=== PATIENT | male | born 1970 | race Caucasian/White ===

== ENCOUNTER → 2019-06-02 | Outpatient (CLI) | payer BC ==
--- NOTE | 2019-06-02 10:42 | Diagnostic Imaging Report ---
INDICATION: Increasing right hip pain. Time of exam: 10:04 AM Two views of the right hip were obtained. Femoral acetabular alignment is normal. Joint spaces fairly well maintained. Femoral head and neck are intact. No fractures are seen. Right-sided rami are intact. IMPRESSION: No acute bony abnormality is detected. Dictated by: Dictated on workstation # [id number]
== END ==
LOC: RAD 09:49
PROVIDERS: ATTEND Family Medicine
DX: M25.551 Pain in right hip (principal)
CPT/HCPCS: 73502

== ENCOUNTER 2019-11-30 02:12 | Observation (INO) | payer BC ==
[~2019-11-30] VITALS: Ht 187.9 cm; Wt 150.6 kg
[2019-11-30] VITALS (22 sets, daily range): BP systolic 118–149; BP diastolic 67–80
[2019-11-30 02:40] LABS: BASOPHILS # (AUTO) 0.1 10^3/uL (0.0-0.1); BASOPHILS % (AUTO) 1 % (0-10); EOSINOPHILS # (AUTO) 0.5 10^3/uL (0.0-0.3); EOSINOPHILS % (AUTO) 6 % (0-10); HEMATOCRIT 41 % (40-54); HEMOGLOBIN 14.5 G/DL (13.3-17.7); LYMPHOCYTES # (AUTO) 3.6 X 10^3 (1.0-4.0); LYMPHOCYTES % (AUTO) 42 % (12-44); MEAN CORPUSCULAR HEMOGLOBIN 32 PG (25-34); MEAN CORPUSCULAR HGB CONC 35 G/DL (32-36); MEAN CORPUSCULAR VOLUME 92 FL (80-99); MEAN PLATELET VOLUME 10.2 FL (7.4-10.4); MONOCYTES # (AUTO) 0.8 X 10^3 (0.0-1.0); MONOCYTES % (AUTO) 9 % (0-12); NEUTROPHILS # (AUTO) 3.7 X 10^3 (1.8-7.8); NEUTROPHILS % (AUTO) 43 % (42-75); PLATELET COUNT 219 10^3/uL (130-400); RED CELL DISTRIBUTION WIDTH 13.3 % (10.0-14.5); WHITE BLOOD COUNT 8.6 10^3/uL (4.3-11.0)
--- NOTE | 2019-11-30 02:40 | ED Neurological Problem ---
General Stated Complaint: STROKE LIKE SYMTOMS Source: patient, EMS History of Present Illness Date Seen by Provider: Nov 30, 2019 Time Seen by Provider: 02:15 Initial Comments PT ARRIVES VIA EMS FROM HOME C/O RIGHT FACIAL DROOP AND SLURRED SPEECH LAST KNOWN WELL TIME WAS AT 2230 WHEN HE WENT TO BED WOKE UP AT 0130 TO GO TO BATHROOM AND HAD SLURRED SPEECH AND RIGHT FACIAL DROOP NO PARESTHESIAS TO FACE NO INVOLVEMENT OF ARMS OR LEGS EMS REPORTS THAT PT WAS ABLE TO STAND, WALK A FEW STEPS AND TRANSFER WITHOUT DIFFICULTY NO VISION CHANGES, BUT PT DOES NOT HAVE ON HIS GLASSES NO PROBLEMS HANDLING SECRETIONS NO HEADACHE NO DIZZINESS OR SYNCOPE NO PALPITATIONS NO CHEST PAIN OR SHORTNESS OF BREATH NO NAUSEA/VOMITING PT IS INSULIN DEPENDENT DIABETIC ACCUCHECK 112 BY EMS. NO HISTORY OF STROKE PCP: DR. ALBERTO Allergies and Home Medications Allergies Coded Allergies: No Allergy Information Available (Unverified , 11/30/19) Patient Home Medication List Home Medication List Reviewed: Yes Review of Systems Review of Systems Constitutional: no symptoms reported Eyes: No Symptoms Reported Ears, Nose, Mouth, Throat: see HPI Respiratory: no symptoms reported Cardiovascular: no symptoms reported Gastrointestinal: no symptoms reported Genitourinary: no symptoms reported Musculoskeletal: no symptoms reported Skin: no symptoms reported Psychiatric/Neurological: See HPI; Denies Cognitive Dysfunction, Denies Headache, Denies Numbness, Denies Tingling Endocrine: No Symptoms Reported Hematologic/Lymphatic: No Symptoms Reported Past Efsjzkj-Xlqrij-Aiighb Hx Past Med/Social Hx: Reviewed and Corrections made Patient Social History Alcohol Use: Denies Use Recreational Drug Use: No Smoking Status: Never a Smoker Recent Foreign Travel: No Contact w/Someone Who Travel: No Past Medical History Surgeries: Yes (BILATERAL SHOULDER SURGERY; LEFT WRIST SURGERY-"CLEANED OUT CARTILAGE" ) Appendectomy, Orthopedic Respiratory: No Cardiac: Yes High Cholesterol, Hypertension Neurological: No Genitourinary: No Gastrointestinal: No Musculoskeletal: Yes (BILATERAL SHOULDER SURGERY; RIGHT WRIST SURGERY-"CLEAN OUT CARTILAGE" ) Endocrine: Yes Diabetes, Insulin dep HEENT: Yes (GLASSES) Cancer: No Psychosocial: No Integumentary: No Blood Disorders: No Physical Exam Vital Signs Capillary Refill : Height, Weight, BMI Height: '" Weight: lbs. oz. kg; BMI Method: General Appearance: WD/WN, no apparent distress, obese HEENT: PERRL/EOMI, normal ENT inspection, TMs normal, pharynx normal, other (TONGUE MIDLINE; RIGHT FACIAL DROOP, INCLUDING FOREHEAD. ABLE TO COMPLETELY SHUT RIGHT EYE) Neck: non-tender, full range of motion, supple, normal inspection; No carotid bruit Respiratory: normal breath sounds, no respiratory distress, no accessory muscle use Cardiovascular: normal peripheral pulses, regular rate, rhythm, no edema, no JVD, no murmur Peripheral Pulses: 2+ Dorsalis Pedis (R), 2+ Left Dors-Pedis (L), 2+ Radial Pulses (R), 2+ Radial Pulses (L) Gastrointestinal: normal bowel sounds, non tender, soft Back: normal inspection Extremities: normal range of motion, non-tender, normal inspection, no pedal edema, no calf tenderness, normal capillary refill Neurologic/Psychiatric: alert, normal mood/affect, oriented x 3, facial droop (RIGHT ) Crainal Nerves: normal hearing, PERRL; No abnormal eye position, No abnormal pupil position; abnormal speech, facial asymmetry, facial droop; No facial paresthesias, No gaze palsy, No hearing deficit (R), No hearing deficit (L), No tongue deviation to R, No tongue deviation to L Coordination/Gait: normal finger to nose, negative Romberg's sign Motor/Sensory: no sensory deficit, no pronator drift, other (RIGHT FACIAL DROOP. NORMAL MOTOR/SENSORY OF ARMS AND LEGS. ) Skin: normal color, warm/dry; No rash Stroke NIH Stroke Scale Assessment Select: Initial Level of Consciousness: 0=Alert (0), Level of Consciousness- Questions: 0=Answers both month/age (0), LOC Commands: 0=Performs both tasks (0), Gaze: Normal (0), Visual Randhawa: 0=No visual loss (0), Facial Movement (Facial Paresis): 2=Partial paralysis (2), Motor Function-Arms Right: 0=No drift (0), Motor Function-Arms Left: 0=No drift (0), Motor Function-Legs Right: 0=No drift (0), Motor Function-Legs Left: 0=No drift (0), Limb Ataxia: 0=Absent (0), Sensory: 0=Normal:no loss (0), Best Language: 0=No aphasia (0), Dysarthria: 1=Mild to moderate loss (1), Extinction & Inattention: 0=No abnormality (0), Total: 3 Stroke Thrombolytic Exclusion Age 18 or Over: Yes Acute intenal hemorrhage: No History of CVA: No Uncontrolled Coagulation Defec: No Intracranial Hemorrhage: No Severe Hypertension: No GI or Bleed: No Subarachnoid Hemorrhage: No Intracranial Neoplasm/Aneurysm: No Oral Anticoagulants: No Surgery or Trauma: No Puncture of Non-Compressible V: No Recent CPR: No Diabetic Hemorrhagic Retinopat: No Organ Biopsy: No Recent Obstetric Delivery: No Glucose: No Significant Hepatic Dysfunctio: No NIH Stoke Scale >22: No Bacterial Endocarditis: No Pericarditis: No Improving Symptoms: No Platelets: No TPA Contraindication: No IV - TPa Received IV - TPa Procedure Performed?: No (DUE TO LAST KNOWN WELL TIME OF GREATER THAN 3 HOURS, NIH OF 3, WITHOUT EVIDENCE OF OCCLUSION/THROMBUS OR STENOSIS) Progress/Results/Core Measures Results/Orders Lab Results Laboratory Tests Test 11/30/19 02:31 11/30/19 03:25 Range/Units White Blood Count 8.6 4.3-11.0 10^3/uL Red Blood Count 4.50 4.35-5.85 10^6/uL Hemoglobin 14.5 13.3-17.7 G/DL Hematocrit 41 40-54 % Mean Corpuscular Volume 92 80-99 FL Mean Corpuscular Hemoglobin 32 25-34 PG Mean Corpuscular Hemoglobin Concent 35 32-36 G/DL Red Cell Distribution Width 13.3 10.0-14.5 % Platelet Count 219 130-400 10^3/uL Mean Platelet Volume 10.2 7.4-10.4 FL Neutrophils (%) (Auto) 43 42-75 % Lymphocytes (%) (Auto) 42 12-44 % Monocytes (%) (Auto) 9 0-12 % Eosinophils (%) (Auto) 6 0-10 % Basophils (%) (Auto) 1 0-10 % Neutrophils # (Auto) 3.7 1.8-7.8 X 10^3 Lymphocytes # (Auto) 3.6 1.0-4.0 X 10^3 Monocytes # (Auto) 0.8 0.0-1.0 X 10^3 Eosinophils # (Auto) 0.5 H 0.0-0.3 10^3/uL Basophils # (Auto) 0.1 0.0-0.1 10^3/uL Prothrombin Time 13.1 12.2-14.7 SEC INR Comment 1.0 0.8-1.4 Activated Partial Thromboplast Time 24 24-35 SEC D-Dimer < 0.27 0.00-0.49 UG/ML Sodium Level 141 135-145 MMOL/L Potassium Level 3.0 L 3.6-5.0 MMOL/L Chloride Level 105 98-107 MMOL/L Carbon Dioxide Level 21 21-32 MMOL/L Anion Gap 15 H 5-14 MMOL/L Blood Urea Nitrogen 22 H 7-18 MG/DL Creatinine 1.19 0.60-1.30 MG/DL Estimat Glomerular Filtration Rate > 60 BUN/Creatinine Ratio 18 Glucose Level 133 H 70-105 MG/DL Calcium Level 9.5 8.5-10.1 MG/DL Corrected Calcium 9.3 8.5-10.1 MG/DL Total Bilirubin 0.4 0.1-1.0 MG/DL Aspartate Amino Transf (AST/SGOT) 19 5-34 U/L Alanine Aminotransferase (ALT/SGPT) 31 0-55 U/L Alkaline Phosphatase 38 L 40-136 U/L Troponin I < 0.028 <0.028 NG/ML Total Protein 7.1 6.4-8.2 GM/DL Albumin 4.3 3.2-4.5 GM/DL Magnesium Level 1.7 1.6-2.4 MG/DL My Orders Orders - EUGENE ALLEN DO Ct Head Wo-R/O Stroke (11/30/19 ) Cbc With Automated Diff (11/30/19 02:22) Protime With Inr (11/30/19 02:22) Partial Thromboplastin Time (11/30/19 02:22) Comprehensive Metabolic Panel (11/30/19 02:22) Fibrin Degradation Products (11/30/19 02:22) Troponin I (11/30/19 02:22) Ua Culture If Indicated (11/30/19 02:22) Chest 1 View, Ap/Pa Only (11/30/19 02:22) Catheter(Urinary) Insert & Ass 03,15 (11/30/19 02:22) Ekg Tracing (11/30/19 02:22) Nothing By Mouth (11/30/19 Breakfast) Accucheck Stat ONCE (11/30/19 02:22) Ed Iv/Invasive Line Start (11/30/19 02:22) Ed Iv/Invasive Line Start (11/30/19 02:22) Vital Signs Stroke Patient Q15M (11/30/19 02:22) O2 (11/30/19 02:22) Intake & Output 06,14,22 (11/30/19 02:22) Monitor-Rhythm Ecg Trace Only (11/30/19 02:22) Dysphagia Screening Tool (11/30/19 02:22) Lipid Panel (12/01/19 06:00) Ct Angio Head/Neck (11/30/19 02:22) I-Stat Bedside Testing (11/30/19 02:34) D5 1/2 Ns W/Kcl 20 Meq/L (Dextrose 5%/0. (11/30/19 03:30) Magnesium (11/30/19 03:18) Progress Progress Note : Progress Note SYMPTOMS IMPROVING AT TIME OF ADMIT. SPEECH IS A LITTLE CLEARER, FACIAL DROOP APPEARS TO BE SLIGHTLY LESS. PT ABLE TO CHEW ASPIRIN AND SWALLOW WITHOUT SIGNIFICANT DIFFICULTY Initial ECG Impression Date: Nov 30, 2019 Initial ECG Impression Time: 03:37 Initial ECG Rate: 63 Initial ECG Rhythm: Normal Sinus Diagnostic Imaging Comments CXR--NO ACUTE PROCESS, PENDING RADIOLOGIST REVIEW CT HEAD--NO ACUTE PROCESS, PER [facility] VIA FAX AT 0231 CT ANGIOGRAM HEAD/NECK--NO ACUTE PROCESS, NO THROMBUS OR OCCLUSION, NO STENOSIS. HAS VERY SLIGHT NARROWING OF LEFT VERTEBRAL ARTERY AT ORIGIN, OTHERWISE IS NORMAL, PER [facility] RADIOLOGIST VIA PHONE AT 0341 Reviewed: Reviewed by Me, Discussed w/Radiologist, Reviewed/Discussed Departure Communication (Admissions) 0342--CALLED 0346--SPOKE WITH STROKE NEUROLOGIST, DR. ROLON. SHE ADVISES THAT PT IS NOT A CANDIDATE FOR TPA OR ANY INTERVENTION DUE TO LAST KNOW WELL TIME OF > 3 HOURS, LOW NIH, NO EVIDENCE OF THROMBUS, OCCLUSION OR STENOSIS ON CT ANGIOGRAM. NO ELEVATED BLOOD PRESSURE. SYMPTOMS SUGGESTIVE OF MAHMOOD'S PALSY, AND ADVISES STEROIDS AT THIS TIME AND MRI WITHOUT CONTRAST IN THE MORNING. SHE ADVISES THAT NO ANTIVIRALS BE GIVEN AT THIS TIME, SYMPTOMS ARE NOT COMPLEX SUCH MULTIP LE CRANIAL NERVE INVOLVEMENT, ETC. 0351--SPOKE WITH DR. ALBERTO, ACCEPTS PT FOR ADMIT. Impression Primary Impression: Facial paralysis on right side Additional Impressions: Slurred speech IDDM (insulin dependent diabetes mellitus) HTN (hypertension) Disposition: ADMITTED INPATIENT Condition: Improved Admissions Decision to Admit Reason: Admit from ER (General) Decision to Admit/Date: Nov 30, 2019 Time/Decision to Admit Time: 03:50 Departure-Patient Inst. Referrals: GLENN ALBERTO MD (PCP/Family) Primary Care Physician EUGENE ALLEN DO Nov 30, 2019 02:40
[2019-11-30 03:12] LABS: ALANINE AMINOTRANSFERASE 31 U/L (0-55); ALBUMIN 4.3 GM/DL (3.2-4.5); ALKALINE PHOSPHATASE 38 U/L (40-136); BILIRUBIN,TOTAL 0.4 MG/DL (0.1-1.0); BUN/CREATININE RATIO 18; CALCIUM 9.5 MG/DL (8.5-10.1); CARBON DIOXIDE 21 MMOL/L (21-32); CHLORIDE 105 MMOL/L (98-107); CREATININE SERUM 1.19 MG/DL (0.60-1.30); GFR ESTIMATED > 60; GLUCOSE 133 MG/DL (70-105); SODIUM 141 MMOL/L (135-145); TOTAL PROTEIN 7.1 GM/DL (6.4-8.2)
[2019-11-30 03:29] LABS: FIBRIN DEGRADATION PRODUCTS < 0.27 UG/ML (0.00-0.49); PARTIAL THROMBOPLASTIN TIME 24 SEC (24-35); PROTHROMBIN TIME PATIENT 13.1 SEC (12.2-14.7)
[2019-11-30] MEDS ORDERED: D5 1/2 NS W/KCL 20 MEQ/L 1,000 ML IV ONE (03:37)
[2019-11-30] MEDS: D5 1/2 NS W/KCL 20 MEQ/L 1,000 ML IV SCH ×2 (03:49→12:20)
[2019-11-30] MEDS ORDERED: methylPREDNISolone 125 MG (Solu-MEDROL) VIAL IVP ONE (04:00)
[2019-11-30] MEDS ORDERED: ASPIRIN 81 MG CHEW (CHILDREN'S ASA) PO ONE (04:00)
[2019-11-30] MEDS ORDERED: HOLD METFORMIN - RECEIVED CONTRAST 20 ML VIAL IV SCH (04:15)
[2019-11-30] MEDS ORDERED: IOHEXOL 350 MG/ML 100 ML (OMNIPAQUE 350) VIAL IV ONE (04:15)
[2019-11-30] MEDS ORDERED: NS 100 ML (IVPB) BAG IV ONE (04:15)
--- OUTSIDE RECORDS SUMMARY | 2019-11-30 04:25 | XMS REPORT | Continuity of Care Document ---
Author Organization Unknown Address Unknown Phone Unavailable Allergies There is no data. Medications There is no data. Problems Date Dx Coded Attending Type Code Diagnosis Diagnosed By 06/17/2019 GLENN ALBERTO MD, Ot M25.551 PAIN IN RIGHT HIP 11/30/2019 GLENN ALBERTO MD, Ot M25.551 PAIN IN RIGHT HIP Procedures There is no data. Results Test Result Range Complete blood count (CBC) with automate d white blood cell (WBC) differential - 11/30/19 02:31 Blood leukocytes automated count (number/volume) 8.6 10*3/uL 4.3-11.0 Blood erythrocytes automated count (number/volume) 4.50 10*6/uL 4.35-5.85 Venous blood hemoglobin measurement (mass/volume) 14.5 g/dL 13.3-17.7 Blood hematocrit (volume fraction) 41 % 40-54 Automated erythrocyte mean corpuscular volume 92 [ foz_us] 80-99 Automated erythrocyte mean corpuscular h emoglobin (mass per erythrocyte) 32 pg 25-34 Automated erythrocyte mean corpuscular h emoglobin concentration measurement (mass/volume) 35 g/dL 32-36 Automated erythrocyte distribution width ratio 13. 3 % 10.0- 14.5 Automated blood platelet count (count/volume) 219 10*3/uL 130-400 Automated blood platelet mean volume measurement 10.2 [foz_us] 7.4-10.4 Automated blood neutrophils/100 leukocytes 43 % 42-75 Automated blood lymphocytes/100 leukocytes 42 % 12-44 Blood monocytes/100 leukocytes 9 % 0-12 Automated blood eosinophils/100 leukocytes 6 % 0-10 Automated blood basophils/100 leukocytes 1 % 0-10 Blood neutrophils automated count (number/volume) 3.7 10*3 1.8-7.8 Blood lymphocytes automated count (number/volume) 3.6 10*3 1.0-4.0 Blood monocytes automated count (number/volume) 0. 8 10*3 0.0-1.0 Automated eosinophil count 0.5 10*3/uL 0 .0-0.3 Automated blood basophil count (count/volume) 0.1 10*3/uL 0.0-0.1 Encounters ACCT No. Visit Date/Time Discharge Status Pt. Type Provider Facility Loc./Unit Complaint [id number] 06/02/2019 09:49:00 019 23:59:59 CLS Outpatient DOLLY ROSARIO, GLENN Macedo [facility] RAD R HIP PAIN [id number] 11/30/2019 02:17:[address] Emergency EUGENE ALLEN DO [facility] ER STROKE LIKE SYMTOMS
--- OUTSIDE RECORDS SUMMARY | 2019-11-30 04:52 | XMS REPORT | Continuity of Care Document ---
[...] Status Pt. Type Provider Facility Loc./Unit Complaint [id number] 06/02/2019 09:49:00 019 23:59:59 CLS Outpatient GLENN ALBERTO MD [facility] RAD R HIP PAIN [id number] 11/30/2019 03:50:[address] Inpatient GLENN ALBERTO MD [facility] ICU R FACIAL PARALYSIS SLURRED SPEECH,CVA VS MAHMOOD'S
--- NOTE | 2019-11-30 05:40 | NUR ---
Lucille Evans admitted to room CU12-1, with an admitting diagnosis of IDDM, HTN,CVA vs [place] Palsy, Right facial paralysis & slurred speech, on 11/30/19 from ER via cart, accompanied by . LUCILLE EVANS introduced to surroundings, call light, bed controls, phone, TV, temperature control, lights, meal times, smoking policy, visitor policy, and side rail policy. LUCILLE EVANS verbalizes understanding that [facility] is not responsible for the loss or damage to any personal effects or valuables that are kept in the patients posession during their hospitalization. The following Patient Care Plans were discussed with the pt and : Discharge Planning, potenetial for injury, metabolic imbalance, and neurological checking. LUCILLE EVANS verbalizes understanding of Interdisciplinary Patient Education. Patient and were informed about the Rapid Response Team and its purpose. Pt connected to monitored and assessment done.
[2019-11-30] MEDS ORDERED: INSU100V16 SQ (05:57)
[2019-11-30] MEDS ORDERED: INSU100V5 SQ (05:57)
[2019-11-30] MEDS ORDERED: FENO160T12 PO (05:57)
[2019-11-30] MEDS ORDERED: METF750T45 PO (05:57)
[2019-11-30] MEDS ORDERED: LISI40TA PO (05:57)
[2019-11-30] MEDS ORDERED: AMLO5TAB9 PO (05:57)
--- NOTE | 2019-11-30 06:05 | Diagnostic Imaging Report ---
Indication: Right-sided weakness Portable chest 2:38 AM Heart size and pulmonary vascularity are normal. Lungs are clear. There are no effusions or pneumothoraces. IMPRESSION: No acute abnormalities in the chest Dictated by: Dictated on workstation # [id number]
--- NOTE | 2019-11-30 06:42 | Diagnostic Imaging Report ---
PROCEDURE: CT head wo r/o stroke. TECHNIQUE: Multiple contiguous axial images were obtained through the brain without the use of intravenous contrast. Auto Exposure Controls were utilized during the CT exam to meet ALARA standards for radiation dose reduction. INDICATION: Right-sided facial weakness The ventricles are normal in size, shape and position. There are no masses or hemorrhages. There are no extra-axial fluid collections. IMPRESSION: Negative CT head I agree with preliminary interpretation. Dictated by: Dictated on workstation # [id number]
--- NOTE | 2019-11-30 07:06 | History & Physicial ---
History of Present Illness History of Present Illness Reason for visit/HPI 49-year-old male presents to [facility] emergency department via EMS after apparently having right facial droop and slurred speech. According to his last known time of normal facial and speech was at 1030 p.m. when he went to bed on November 29, 2019. It apparently went to the restroom at 130 in the morning on November 29 and was noted to have right facial droop and slurred speech. He had no weakness of the upper extremities or lower extremities. She denied any dizziness palpitations or any headaches. There is no reported chest pain. He is a known diabetic and requires insulin. He is also hypertensive and does take his blood pressure medications every day. Date of Admission Nov 30, 2019 at 03:50 Date Seen by a Provider: Nov 30, 2019 Time Seen by a Provider: 07:10 I consulted on this patient on 11/30/19 07:01 Attending Physician David Alberto MD Admitting Physician David Alberto MD Consult Allergies and Home Medications Allergies Coded Allergies: sitagliptin (Verified Allergy, Unknown, Rash, 11/30/19) Home Medications Amlodipine Besylate 5 Mg Tablet, 5 MG PO DAILY, (Reported) Fenofibrate 160 Mg Tablet, 160 MG PO DAILY, (Reported) Insulin Aspart 100 Unit/1 Ml Susp, 30 UNITS SQ BID WITH MEALS, (Reported) with lunch and dinner Insulin Determir 1,000 Units/10 Ml Soln, 60 UNITS SQ BID, (Reported) am and hs Lisinopril 40 Mg Tablet, 40 MG PO DAILY, (Reported) Metformin HCl 750 Mg Tab.er.24h, 1,500 MG PO DAILY, (Reported) Patient Home Medication List Home Medication List Reviewed: Yes Past Hvqyayb-Ozhhqe-Pdlyge Hx Patient Social History Marrital Status: Number of Children: 2 Alcohol Use: Denies Use Recreational Drug Use: No Smoking Status: Never a Smoker Recent Foreign Travel: No Contact w/other who traveled: No Recent Hopitalizations: No Recent Infectious Disease Expo: No Seasonal Allergies Seasonal Allergies: No Surgeries Yes (BILATERAL SHOULDER SURGERY; LEFT WRIST SURGERY-"CLEANED OUT CARTILAGE" ) Appendectomy, Orthopedic Respiratory No Cardiovascular Yes High Cholesterol, Hypertension Neurological No Genitourinary No Gastrointestinal No Musculoskeletal Yes (BILATERAL SHOULDER SURGERY; RIGHT WRIST SURGERY-"CLEAN OUT CARTILAGE" ) Endocrine History of Endocrine Disorders: Yes Endocrine Disorders: Diabetes, Insulin dep Are Your Blood Sugars Over 250: Yes HEENT History of HEENT Disorders: Yes (GLASSES) Cancer No Psychosocial History of Psychiatric Problem: No Integumentary History of Skin or Integumenta: No Blood Transfusions History of Blood Disorders: No Review of Systems Constitutional: see HPI Physical Exam Vital Signs Vital Signs - First Documented 11/30/19 02:17 Temp 37.0 Pulse 68 Resp 14 B/P (MAP) 155/78 (103) Pulse Ox 94 O2 Delivery Room Air Capillary Refill : Less Than 3 Seconds Height, Weight, BMI Height: '" Weight: lbs. oz. kg; 41.18 BMI Method: General Appearance: No Apparent Distress Eyes: Bilateral Eye Normal Inspection Neck: Supple Respiratory: Lungs Clear Cardiovascular: Regular Rate, Rhythm, No Murmur; No Diastolic Murmur, No Systolic Murmur, No Irregularly Irregular, No Tachycardia Gastrointestinal: Soft Rectal: Deferred Back: Normal Inspection Extremity: Normal Capillary Refill Neurologic/Psychiatric: Alert, Oriented x3, Other (having slight articulation problem.) Skin: Normal Color Lymphatic: No Adenopathy Comments [facility] [place] [place] NAME: LUCILLE EVANS [facility] REC#: [id number] PT STATUS: ADM Brandi : 1970 PHYSICIAN: EUGENE ALLEN DO ADMIT DATE: 11/30/19/ICU Signed Date of Exam:11/30/19 CT HEAD WO-R/O STROKE PROCEDURE: CT head wo r/o stroke. TECHNIQUE: Multiple contiguous axial images were obtained through the brain without the use of intravenous contrast. Auto Exposure Controls were utilized during the CT exam to meet ALARA standards for radiation dose reduction. INDICATION: Right-sided facial weakness The ventricles are normal in size, shape and position. There are no masses or hemorrhages. There are no extra-axial fluid collections. IMPRESSION: Negative CT head I agree with preliminary interpretation. Dictated by: Dictated on workstation # [id number] Dict: 11/30/19 0639 Trans: 11/30/19639 [id number] Interpreted by: ARACELI MENDEZ MD Electronically signed by: ARACELI MENDEZ MD 11/30/1938 Assessment/Plan Assessment and Plan 1. Right-sided facial drooping-?TIA vs Alex's palsy. Noted phone consultation b/w ED physician and [facility] neuro -Patient admitted overnight for further observation of symptom progression -initiation of IV steroids overnight -Plan on MRI of the brain in the morning of November 30, 2019 2. Slurred speech. -As per number 1 3. Known insulin-dependent diabetes -Monitor glucose and utilize sliding scale while inpatient 4. Known hypertension -Monitor blood pressure and restart home medications Admission Diagnosis 1. Right-sided facial drooping 2. Slurred speech. 3. Known insulin-dependent diabetes 4. Known hypertension Admission Status: Observation Reason for Inpatient Admission: Further monitoring of his facial droop to ensure not progressing. Also MRI of the brain in the morning Clinical Quality Measures DVT/VTE Risk/Contraindication: Risk Factor Score Per Nursin RFS Level Per Nursing on Admit: 2=Moderate DAVID ALBERTO MD Nov 30, 2019 07:06
[2019-11-30 08:09] LABS: BILIRUBIN,URINE NEGATIVE (NEGATIVE); CLARITY,URINE CLEAR; COLOR,URINE YELLOW; GLUCOSE, URINE (UA) 2+ (NEGATIVE); KETONES,URINE NEGATIVE (NEGATIVE); LEUKOCYTE ESTERASE ,URINE NEGATIVE (NEGATIVE); NITRITE,URINE NEGATIVE (NEGATIVE); PROTEIN,URINE NEGATIVE (NEGATIVE)
--- NOTE | 2019-11-30 08:09 | Diagnostic Imaging Report ---
PROCEDURE: CT angiography of the head and CT angiography of the neck with and without contrast. TECHNIQUE: Contiguous noncontrast images were obtained from the skull base through the vertex. After intravenous contrast administration, helical CT angiography of the neck was performed. Source data was reformatted into 3D MIP projections. Delayed post contrast acquisition was also obtained. Auto Exposure Controls were utilized during the CT exam to meet ALARA standards for radiation dose reduction. INDICATION: Right-sided facial weakness. COMPARISON: Noncontrast CT head of earlier same day FINDINGS: CTA NECK: Aorta: Aortic arch is normal, with standard three vessel branching pattern. Anterior Circulation: The origin of the bilateral common carotid arteries are patent. No stenosis of the common carotid arteries in the neck. No significant stenosis of the internal carotid arteries per NASCET criteria. The cervical segments of the bilateral ICAs are patent. The proximal external carotid arteries are patent and without significant stenosis. Posterior Circulation: Mild luminal narrowing at the origin the left vertebral artery. Right vertebral artery origin is normal. Vertebral arteries are co-dominant. The proximal extraousseous, intrasosseous, and distal extraosseous segments of the vertebral arteries are patent without dissection or stenosis. Non-vascular: No cervical lymphadenopathy. The airway is patent. No evidence of mucosal-based mass lesion in the pharynx. Thyroid is normal. Salivary glands are normal. No concerning lesion in the cervical spine. CTA HEAD: Anterior Circulation: The distal internal carotid arteries are patent. The bilateral M1 and M2 segments of the middle cerebral arteries are patent and without stenosis. The bilateral M3 and M4 segments are symmetric in size and number. The anterior cerebral arteries are patent and without stenosis. Anterior communicating artery is patent. No saccular aneurysm in the anterior circulation. Posterior Circulation: The bilateral intracranial segments of the vertebral arteries are patent. The basilar artery is patent and without stenosis. The posterior cerebral arteries are patent. Bilateral posterior communicating arteries are patent and without aneurysm. No saccular aneurysm in the posterior circulation. Post Contrast Head: No pathologic enhancement on delayed post-contrast enhancement. IMPRESSION: 1. No intracranial medium or large vessel occlusion. 2. No arterial occlusion or high-grade stenosis in the major neck arteries. 3. Findings are in agreement with the preliminary report. Dictated by: Dictated on workstation # [id number]
[2019-11-30 08:20] LABS: BACTERIA,URINE TRACE /HPF; WBC,URINE RARE /HPF
[2019-11-30] MEDS ORDERED: ASPIRIN E.C. 325 MG (ECOTRIN) TABLET PO SCH (09:00)
[2019-11-30] MEDS: lisINopril 40 MG (PRINIVIL) TABLET PO SCH (09:30)
[2019-11-30] MEDS: amLODIPine 5 MG (NORVASC) TAB PO SCH (09:31)
[2019-11-30] MEDS ORDERED: IBUP-2473 PO (09:39)
[2019-11-30] MEDS ORDERED: methylPREDNISolone 125 MG (Solu-MEDROL) VIAL IV SCH (10:00)
--- NOTE | 2019-11-30 11:02 | NUR ---
SPOKE WITH THE PT AND HIS AND WENT THRU THE EXT MED HISTORY TO COMPLETE THE MED REC MED REC WAS DONE THIS MORNING BY THE NURSE AND ALL WAS CORRECT, THE ONLY THING I UPDATED WAS THAT THE PT TAKES IBUPROFEN PRN
[2019-11-30] MEDS: inSUlin ASPART (NovoLOG) 1 UNIT/0.01 ML (CHARGE PER UNIT) SC SCH ×3 (12:20→23:33)
--- NOTE | 2019-11-30 12:35 | Diagnostic Imaging Report ---
PROCEDURE: MR imaging of the brain without contrast. TECHNIQUE: Multiplanar, multisequence MR imaging of the brain was performed without contrast. INDICATION: Right-sided weakness, slurred speech. Exam confirms a somewhat curvilinear area of abnormal diffusion restriction consistent with an acute to subacute ischemic infarct in the lateral aspect of the left thalamus and likely involving a portion of the posterior limb of the internal capsule. The small infarct's dimensions on diffusion restriction are roughly 2 cm long x 1 cm transverse. It exerts no mass effect and there is no evidence for hemorrhagic component. No other foci of abnormal diffusion restriction are found. The brainstem and posterior fossa normal. The ventricular system is nondilated and nondisplaced. There is no evidence for an elevation of the intracerebral pressures. The orbits and paranasal sinuses were nonacute. IMPRESSION: 1. Exam confirms a small acute to subacute ischemic infarct lateral aspect left thalamus with probable involvement posterior limb left internal capsule, dimensions above. No hemorrhagic component or resultant mass effect. 2. The study was otherwise normal. Called to [facility] at 12:32 p.m. by cvb. Dictated by: Dictated on workstation # [id number]
--- NOTE | 2019-11-30 13:58 | Diagnostic Imaging Report ---
PROCEDURE: US carotid duplex, bilateral. TECHNIQUE: Multiple real-time grayscale images were obtained over the carotid arteries in various projections, bilaterally. Additional spectral analysis and color Doppler duplex images were also obtained. INDICATION: Right facial paralysis. No significant plaquing is identified in either carotid system. Velocities are normal bilaterally. No velocity elevation or stenosis is seen. Both vertebral arteries show antegrade flow. IMPRESSION: No evidence of a hemodynamically significant stenosis. Parameters based on the consensus panel Irvin-Scale and Doppler ultrasound criteria published July 2003, Radiology, Volume 229. DOPPLER (peak systolic velocity M/S Right Left CCA 1.29 1.41 ICA Proximal .36 .75 ICA Mid .40 .57 ICA Distal .45 .59 RATIO 0.3 0.5 ECA 0.50 1.25 VERT .67 .61 Dictated by: Dictated on workstation # [id number]
[2019-11-30 14:09] LABS: CHOLESTEROL 147 MG/DL (< 200); HDL CHOLESTEROL 35 MG/DL (40-60); TRIGLYCERIDES 383 MG/DL (<150); VLDL CHOLESTEROL 77 MG/DL (5-40)
--- NOTE | 2019-11-30 14:24 | Occupational Therapy Eval ---
OT Evaluation-General/PLF Medical Diagnosis Admission Date Nov 30, 2019 at 03:50 Medical Diagnosis: R facial droop/ slurred speech Onset Date: Nov 29, 2019 Therapy Diagnosis Therapy Diagnosis: Decreased R UE strength/ ADL status Precautions Precautions/Isolations: Fall Prevention, Standard Precautions Safety Interventions: None Referral Physician: David Deluna Referral Reason: Activity Tolerance, Self Care, Evaluation/Treatment, Strengthening/ROM Medical History Pertinent Medical History: DM, HTN Current History Pt experienced R facial droop/ slurred speech at 1:30 am on 11/30/19. Admitted to ER; CT scan negative, pending MRI results Reviewed History: Yes Social History Home: Single Level Current Living Status: Spouse Entry Into Home: Stairs With Railing Steps Into Home: 2 ADL-Prior Level of Function SCALE: Activities may be completed with or without assistive devices. 2-Xeghzbeskl-xmliuny completes the activity by him/herself with no assistance from a helper. 5-Set-up or Clean-up Assistance-helper sets up or cleans up; patient completes activity. [place] assists only prior to or following the activity. 4-Supervision or Touching Assistance-helper provides verbal cues and/or touching/steadying and/or contact guard assistance as patient completes activity. Assistance may be provided throughout the activity or intermittently. 3-Partial/Moderate Assistance-helper does LESS THAN HALF the effort. [place] lifts, holds or supports trunk or limbs, but provides less than half the effort. 2-Substantial/Maximal Assistance-helper does MORE THAN HALF the effort. [place] lifts or holds trunk or limbs and provides more than half the effort. 9-Gszrlcnio-jygeaw does ALL the effort. Patient does none of the effort to complete the activity. Or, the assistance of 2 or more helpers is required for the patient to complete the activity. If activity was not attempted, code reason: 7-Patient Refused. 9-Not Applicable-not attempted and the patient did not perform the activity before the current illness, exacerbation or injury. 10-Not Attempted due to Environmental Limitations-(lack of equipment, weather restraints, etc.). 88-Not Attempted due to Medical Conditions or Safety Concerns. ADL PLOF Comments Pt states IND without use of AE for ADLs/ IADLs Self Care: Independent Functional Cognition: Independent DME/Equipment: Tub/Shower DME/Equipment Comments Recommendations of shower chair and grab bars. 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 Pt currently asleep, states pt has been in/out of sleep during day but has had lots of tests this morning. Pt easily wakes, expresses no pain. Agreeable to OT eval. Mental Status/Objective Patient Orientation: Person, Place, Situation Attachments: IV Current Glasses/Contacts: Yes Hearing Aids: No Dentures/Partials: No Hand Dominance: Right Upper Extremity ROM WFL BUE R increased time Upper Extremity Coordination R increased time for opposition L WFL Upper Extremity Sensation WFL BUE pt expresses no paresthesias in face/ hands. Upper Extremity Strength L WFL R decreased (4-/5), tower attendant strength moderate ADL-Treatment Eating (QC): 4 (SUP per clinical judgement- pt NPO status but brings hand to mouth, moderate tower attendant strength.) Other Treatments Nursing states pt okay to be seen by therapy. Pt fatigued, wakes up. pt's expresses pt has been "up and down" since admission- stating pt was up in room and took self to commode 2x without difficulties, now weakness of R UE apparent. Pt completes eye tracking with accuracy, including crossing midline. Pt and provide hx, home environment hx. Pt expresses he does not see any correlation to activity and increased/ decreased weakness that has expressed. Pt would not be able to complete LB dressing/ showering/ toileting with safety at this time without assist. OT role explained with education on continued activity/ UE mo vement to encourage UE strengthening. Pt left in bed with call light in reach, all needs met, present. Education OT Patient Education: Exercise program, Home exercise program, Instructions to caregiver, Purpose of tx/functional activities, Safety issues Teaching Recipient: Patient, Significant Other Teaching Methods: Demonstration, Discussion Response to Teaching: Verbalize Understanding, Return Demonstration OT Mcc Goals Plush Finisher Goals Time Frame: Dec 14, 2019 Eating (QC): 6 Oral Hygiene (QC): 6 Toileting Hygiene (QC): 6 Shower/Bathe Self (QC): 6 Upper Body Dressing (QC): 6 Lower Body Dressing (QC): 6 On/Off Footwear (QC): 6 Additional Goals: 1-Demonstrate ADL Tasks, 2-Verbalize Understanding, 3- ImproveStrength/Jamel 1=Demonstrate adherence to instructed precautions during ADL tasks. 2=Patient will verbalize/demonstrate understanding of assistive devices/modifications for ADL. 3=Patient will improve strength/tolerance for activity to enable patient to perform ADL's. OT Education/Plan Problem List/Assessment Assessment: Decreased Activ Tolerance, Decreased UE Strength, Impaired Coordination, Impaired I ADL's, Impaired Self-Care Skills Discharge Recommendations Plan/Recommendations: Continue POC Therapy Discharge Recommendati: Scheduled Assistance, Home & Family, Post Acute OT Treatment Plan/Plan of Care Treatment,Training & Education: Yes Patient would benefit from OT for education, treatment and training to promote independence in ADL's, mobility, safety and/or upper extremity function for ADL's. Plan of Care: ADL Retraining, Caregiver Training, Functional Mobility, UE Funct Exercise/Act, UE Neuromus Re-Ed/Coord Treatment Duration: Dec 14, 2019 Frequency: 5 times per week Estimated Hrs Per Day: .25 hour per day Agreement: Yes Rehab Potential: Fair Time/GCodes Start Time: 13:55 Stop Time: 14:12 Total Time Billed (hr/min): 17 Billed Treatment Time ONUR Friedman (17) LAM JAIME OTR Nov 30, 2019 14:24
--- NOTE | 2019-11-30 14:41 | Physical Therapy Evaluation ---
PT Evaluation-General Medical Diagnosis Admission Date Nov 30, 2019 at 03:50 Medical Diagnosis: R facial droop/ slurred speech Onset Date: Nov 29, 2019 Therapy Diagnosis Therapy Diagnosis: Impaired mobility Precautions Precautions/Isolations: Fall Prevention, Standard Precautions Weight Bear Status Full Weight Bearing Full Weight Bearing Referral Physician: David Deluna Reason for Referral: Evaluation/Treatment Medical History Pertinent Medical History: DM, HTN Current History EMS brought patient to hospital, they state he was able to transfer and walk well. Only facial weakness and slurred speech. Reviewed History: Yes Social History Home: Single Level Current Living Status: Spouse Entry Into Home: Stairs With Railing PT Steps Into Home: 1 Prior Prior Level of Function SCALE: Activities may be completed with or without assistive devices. 4-Mpfpvcxfuw-lhldvma completes the activity by him/herself with no assistance from a helper. 5-Set-up or Clean-up Assistance-helper sets up or cleans up; patient completes activity. [place] assists only prior to or following the activity. 4-Supervision or Touching Assistance-helper provides verbal cues and/or touching/steadying and/or contact guard assistance as patient completes activity. Assistance may be provided throughout the activity or intermittently. 3-Partial/Moderate Assistance-helper does LESS THAN HALF the effort. [place] lifts, holds or supports trunk or limbs, but provides less than half the effort. 2-Substantial/Maximal Assistance-helper does MORE THAN HALF the effort. [place] lifts or holds trunk or limbs and provides more than half the effort. 3-Axcvcusch-hzkcfs does ALL the effort. Patient does none of the effort to complete the activity. Or, the assistance of 2 or more helpers is required for the patient to complete the activity. If activity was not attempted, code reason: 7-Patient Refused. 9-Not Applicable-not attempted and the patient did not perform the activity before the current illness, exacerbation or injury. 10-Not Attempted due to Environmental Limitations-(lack of equipment, weather restraints, etc.). 88-Not Attempted due to Medical Conditions or Safety Concerns. Bed Mobility: 6 Transfers (B,C,W/C): 6 Gait: 6 Stairs: 6 Indoor Mobility (Ambulation): Independent Stairs: Independent PT Evaluation-Current Subjective No pain reported but feeling foggy. Objective Patient Orientation: Person, Place, Eyes Open Attachments: IV heart monitor ROM/Strength ROM Upper Extremities WNL ROM Lower Extremities WNL Strength Upper Extremities WNL Strength Lower Extremities 5/5 all WNL Integumentary/Posture Integumentary WNL Bowel Incontinence: No Bladder Incontinence: No Posture WNL Neuromuscular (Tone, Coordination, Reflexes) WNL Sensory Vision: Functional Hearing: Functional Hand Dominance: Right Sensation Right Upper Extremit: Intact Sensation Left Upper Extremity: Intact Sensation Right Lower Extremit: Intact Sensation Left Lower Extremity: Intact Transfers Roll Left to Right (QC): 5 Sit to Lying (QC): 4 (SBA) Lying to Sitting/Side of Bed(Q: 4 (SBA) Sit to Stand (QC): 4 (SBA) Chair/Lun-ub-Edvzw Xfer(QC): 4 (SBA) Gait Does the Patient Walk?: Yes Mode of Locomotion: Walk Anticipated Mode of Locomotion: Walk Walk 10 feet (QC): 4 (SBA 50% CGA 50%) Walk 50 ft with 2 Turns(QC): 4 (SBA 50% CGA 50%) Walk 150 ft (QC): 4 (SBA 50% CGA 50%) Distance: 250 Gait Assistive Device: None Comments/Gait Description Patient ambulates safe but needs cues to slow down and has a hard time reorientating to his environment. Minor right LE (lag) and fatigue with distance Balance Sitting Static: Normal Sitting Dynamic: Good Standing Static: Good Standing Dynamic: Fair Assessment/Needs Post ambulation patient's blood pressure raised to 188/103 then dropped to 164/91 respiration rate remained 21 and heart rate remained 90 during session. Patient did display increased fatigue and slurring after treatment rendered. Rehab Potential: Fair PT Short Term Goals Short Term Goals Time Frame: Dec 06, 2019 Roll Left & Right: 6 Sit to lyin Lying to sitting on side of be: 5 Sit to stand: 4 (SBA) Chair/eii-vs-wilfa transfer: 4 (SBA) Walk 10 feet: 4 (SBA) Walk 50 feet with two turns: 4 (SBA) Walk 150 feet: 4 (SBA) 1 step (curb): 4 PT Care Home Goals Care Home Goals PT Care Home Goals Time Frame: Dec 10, 2019 Roll Left & Right (QC): 6 Sit to Lying (QC): 6 Lying-Sitting on Side/Bed(QC): 6 Sit to Stand (QC): 6 Chair/Vwh-mf-Zyexx Xfer(QC): 6 Walk 10 feet (QC): 6 Walk 50ft with 2 Turns (QC): 6 Walk 150 ft (QC): 6 1 Step (curb) (QC): 6 PT Plan Problem List Problem List: Activity Tolerance, Functional Strength, Safety, Balance, Transfer, Bed Mobility Treatment/Plan Treatment Plan: Continue Plan of Care Treatment Plan: Bed Mobility, Concurrent Therapy, Education, Functional Strength, Group Therapy, Gait, Therapeutic Exercise Treatment Duration: Dec 10, 2019 Frequency: 6 times per week Estimated Hrs Per Day: .25 hour per day Patient and/or Family Agrees t: Yes Safety Risks/Education Patient Education: Gait Training, Transfer Techniques, Correct Positioning, Disease Process, Safety Issues Teaching Recipient: Patient Teaching Methods: Demonstration, Discussion, Audiovisual Response to Teaching: Verbalize Understanding, Return Demonstration, Reinforcement Needed Time/GCodes Time In: 1425 Time Out: 1440 Total Billed Treatment Time: 15 Total Billed Treatment 1 visit ONUR Sharp' NEELIMA BRIGHT PT Nov 30, 2019 14:41
--- NOTE | 2019-11-30 15:58 | ST Dysphagia Evaluation ---
Speech Evaluation-General Medical Diagnosis R facial droop/ slurred speech Onset Date: Nov 29, 2019 Therapy Diagnosis Therapy Diagnosis: Oropharyngeal Dysphagia Precautions Precautions: Aspiration Referral Referring Physician: Dr. Deluna Medical History Pertinent Medical History: DM, HTN Reviewed History: Yes Social History Current Living Status: Spouse Speech PLF/Current-Dysphagia Prior Level of Function Patient lived at home with his . He was able to eat any texture without dif ficulty. Subjective Patient was pleasant and cooperative with the Bedside Dysphagia Evaluation. Cognitive Status Patient Orientation: Person, Place, Situation Oral Motor Skills Dentition: Incisors, Molars, Natural Ability to Follow Directions: Good Patient was NPO pending BDE. He is reported by nursing that he has taken sips of water with his oral meds without difficulty. Oral Expression Ability: Mild Impairment Voice Voice Phonatory-Based Quality: Weak Voice Pitch: Mildly Low Voice Loudness: Mildly Soft/Quiet Face Facial Symmetry: Symmetrical Oral-Facial Assessment Oral-Facial Dentition: Normal Labial Seal Description: Reduced ROM, Droops Right Smile: Reduced ROM, Droops Right Puff Cheeks: Reduced Strength Lingual Protrusion: Abnormal Lingual ROM: Abnormal Lingual Strength: Abnormal Pharynx Velopharyngeal Move.: Weak on Right Volitional Dry Swallow: Yes Voluntary Cough: Yes Can Clear Throat Volitionally: Yes Dysphagia Evaluation Consistencies Presented: Regular, Thin Liquid, Mechanical Soft, Pureed Oral Phase: Reduced Oral Transit Slight decreased oral transit with regular texture. Pharyngeal Phase: Decreased A/P Bolus Transit With regular texture only. Dietary Recommendations: Mechanical Soft Liquid Recommendations: Thin Swallowing Precautions: Alternate Liquids/Solids, Double Swallow, Decreased Bolus 1/2 Tsp, Decreased Rate of Oral Intake, Liquids from Cup, Liquids from Spoon, No Straw, Small Bites and Sips, Sitting Upright 90 Degrees, Sitting 90 Degrees 30 Post Intake, Right Tongue Sweep Dysphagia Evaluation Summary Patient is a pleasant 49 year old male who was brought to the ED with stroke like symptoms. The patient completed a Bedside Dysphagia Evaluation per physician order. Thin liquids presented at 1/2 tsp size x2. Patient was also presented 1/2 bite size of puree, mechanical soft and regular. Patient demo adequate A-P transition for puree and mechanical soft without R side pocketing. Oral transit and swallow onset were mildly delayed for the regular consistency. At this time patient is recommended for a Dysphagia II and thin without straws. This information was provided to the patient and his . His nurse was informed and diet level was written on the white board in his room as well. ST will follow up in the morning with oral intake. Patient may be upgraded depending on his resolution of facial droop. Barriers to Learning Patient's recent CVA Speech Short Term Goals Short Term Goals Short Term Goals 1) Patient will tolerate least restrictive diet level without s/s of aspiration at 90% or greater. 2) Patient/caregiver will utilize compensatory strategies as trained at 90% or greater with minimal cues. Speech Fpc Goals Double Surface Operator Goals Patient will maintain adequate nutrition/hydration via safe, effective swallow function. Speech-Plan Patient/Family Goals Patient/Family Goals: Patient plans on returning home with his upon hospital discharge. Treatment Plan Speech Therapy Treatment Plan: Continue Plan of Care Treatment Duration: Dec 10, 2019 Frequency: 3 times per week Estimated Hrs Per Day: .25 hour per day Rehab Potential: Fair Barriers to Learning: Patient's recent CVA Pt/Family Agrees to Plan: Yes Safety Risks/Education Teaching Recipient: Patient, Significant Other Teaching Methods: Demonstration, Discussion Response to Teaching: Verbalize Understanding, Return Demonstration Education Topics Provided: Safety of oral intake, compensatory strategies, diet level Time Speech Therapy Time In: 15:50 Speech Therapy Time Out: 16:05 Total Billed Time: 15 Billed Treatment Time 1, LILIANA Mueller Nov 30, 2019 15:58
[2019-11-30] MEDS ORDERED: SIMvastatin 40 MG (ZOCOR) TAB PO SCH (21:00)
[2019-12-01] VITALS (10 sets, daily range): BP systolic 125–144; BP diastolic 65–83
[2019-12-01] MEDS: D5 1/2 NS W/KCL 20 MEQ/L 1,000 ML IV SCH (00:54)
[2019-12-01 03:39] LABS: BASOPHILS % (AUTO) 0 % (0-10); EOSINOPHILS % (AUTO) 0 % (0-10); HEMATOCRIT 41 % (40-54); HEMOGLOBIN 14.1 G/DL (13.3-17.7); LYMPHOCYTES # (AUTO) 1.2 X 10^3 (1.0-4.0); LYMPHOCYTES % (AUTO) 9 % (12-44); MEAN CORPUSCULAR HEMOGLOBIN 32 PG (25-34); MEAN CORPUSCULAR HGB CONC 34 G/DL (32-36); MEAN CORPUSCULAR VOLUME 94 FL (80-99); MEAN PLATELET VOLUME 10.8 FL (7.4-10.4); MONOCYTES # (AUTO) 1.3 X 10^3 (0.0-1.0); MONOCYTES % (AUTO) 10 % (0-12); NEUTROPHILS # (AUTO) 10.5 X 10^3 (1.8-7.8); NEUTROPHILS % (AUTO) 81 % (42-75); PLATELET COUNT 226 10^3/uL (130-400); RED CELL DISTRIBUTION WIDTH 13.6 % (10.0-14.5); WHITE BLOOD COUNT 13.1 10^3/uL (4.3-11.0)
[2019-12-01 03:56] LABS: ALBUMIN 4.1 GM/DL (3.2-4.5); BILIRUBIN,TOTAL 0.4 MG/DL (0.1-1.0); CALCIUM 9.3 MG/DL (8.5-10.1); CREATININE SERUM 1.34 MG/DL (0.60-1.30); POTASSIUM 4.3 MMOL/L (3.6-5.0); TOTAL PROTEIN 7.3 GM/DL (6.4-8.2)
[2019-12-01] MEDS: inSUlin ASPART (NovoLOG) 1 UNIT/0.01 ML (CHARGE PER UNIT) SC SCH ×2 (05:45→13:00)
[2019-12-01] MEDS: lisINopril 40 MG (PRINIVIL) TABLET PO SCH (08:20)
[2019-12-01] MEDS: amLODIPine 5 MG (NORVASC) TAB PO SCH (08:21)
[2019-12-01] MEDS ORDERED: ASPIRIN 325 MG (5 GR) TABLET PO SCH (09:00)
--- NOTE | 2019-12-01 10:26 | Physical Therapy Daily Note ---
PT Daily Note-Current Subjective no pain reported but lack of ability to raise R UE and grasp. Appearance Return to bed with call light and tray in reach Mental Status Patient Orientation: Person, Place, Eyes Open Cardiac monitory, 02 sat, BP Transfers SCALE: Activities may be completed with or without assistive devices. 3-Eedibgdtrn-zzgankx completes the activity by him/herself with no assistance from a helper. 5-Set-up or Clean-up Assistance-helper sets up or cleans up; patient completes activity. [place] assists only prior to or following the activity. 4-Supervision or Touching Assistance-helper provides verbal cues and/or touchi ng/steadying and/or contact guard assistance as patient completes activity. Assistance may be provided throughout the activity or intermittently. 3-Partial/Moderate Assistance-helper does LESS THAN HALF the effort. [place] lifts, holds or supports trunk or limbs, but provides less than half the effort. 2-Substantial/Maximal Assistance-helper does MORE THAN HALF the effort. [place] lifts or holds trunk or limbs and provides more than half the effort. 7-Eayyesbec-vtasuo does ALL the effort. Patient does none of the effort to complete the activity. Or, the assistance of 2 or more helpers is required for the patient to complete the activity. If activity was not attempted, code reason: 7-Patient Refused. 9-Not Applicable-not attempted and the patient did not perform the activity before the current illness, exacerbation or injury. 10-Not Attempted due to Environmental Limitations-(lack of equipment, weather restraints, etc.). 88-Not Attempted due to Medical Conditions or Safety Concerns. Sit to Lying (QC): 4 (SBA) Lying to Sitting/Side of Bed(Q: 4 (SBA) Sit to Stand (QC): 4 (CGA) Chair/Hhv-ea-Qfora Xfer(QC): 4 (CGA) Weight Bearing Full Weight Bearing Full Weight Bearing Gait Training Distance: 600' Walk 10 feet (QC): 4 Walk 50 ft with 2 Turns(QC): 4 Walk 150 ft (QC): 4 Gait Assistive Device: None SBA for safety Slight tow drag on RLE with some sluggish response to gait cycle Exercises Seated Therapy Exercises: Ankle pumps, Hip flexion Seated Reps: 10 Standing: Mini squats, Side steps Standing Reps: 10 (SBA) Assessment Current Status: Good Progress, Fair Progress Patient has had some increase weakness with R side UE and grasp. Gait is still sluggish. BP remains WFL with activity. Patient returned to bed with needs met. PT Short Term Goals Short Term Goals Time Frame: Dec 06, 2019 Roll Left & Right: 6 Sit to lyin Lying to sitting on side of be: 5 Sit to stand: 4 (SBA) Chair/pzq-yq-eenvu transfer: 4 (SBA) Walk 10 feet: 4 (SBA) Walk 50 feet with two turns: 4 (SBA) Walk 150 feet: 4 (SBA) 1 step (curb): 4 PT Nursing Home Goals Audiology Director Goals PT Audiology Director Goals Time Frame: Dec 10, 2019 Roll Left & Right (QC): 6 Sit to Lying (QC): 6 Lying-Sitting on Side/Bed(QC): 6 Sit to Stand (QC): 6 Chair/Qew-zg-Fhcuu Xfer(QC): 6 Walk 10 feet (QC): 6 Walk 50ft with 2 Turns (QC): 6 Walk 150 ft (QC): 6 1 Step (curb) (QC): 6 PT Plan Problem List Problem List: Activity Tolerance, Functional Strength, Safety, Balance, Gait, Transfer, Bed Mobility Treatment/Plan Treatment Plan: Continue Plan of Care Treatment Plan: Bed Mobility, Concurrent Therapy, Education, Functional Strength, Group Therapy, Gait, Therapeutic Exercise Treatment Duration: Dec 10, 2019 Frequency: 6 times per week Estimated Hrs Per Day: .25 hour per day Patient and/or Family Agrees t: Yes Safety Risks/Education Patient Education: Gait Training, Correct Positioning, Safety Issues Teaching Recipient: Patient Teaching Methods: Demonstration, Discussion, Audiovisual Response to Teaching: Verbalize Understanding, Return Demonstration, Reinforcement Needed Time/GCodes Time In: 915 Time Out: 937 Total Billed Treatment Time: 23 Total Billed Treatment 1 visit 2 GT 23 min NEELIMA BRIGHT PT Dec 01, 2019 10:26
--- NOTE | 2019-12-01 14:03 | Occupational Ther Daily Note ---
OT Current Status-Daily Note Subjective Pt seen in bed, supine; present through session. Pt agrees to OT treatment, states RUE has been heavier on this date. No pain noted. states end of session pt's cognition returning and, as result, pt has been more aware of medical status/ increasing motivation/ also decreased mood. Mental Status/Objective Attachments: Telemetry ADL-Treatment Therapy Code Descriptions/Definitions Functional Stanton Measure: 0=Not Assessed/NA 4=Minimal Assistance 1=Total Assistance 5=Supervision or Setup 2=Maximal Assistance 6=Modified Stanton 3=Moderate Assistance 7=Complete IndependenceSCALE: Activities may be completed with or without assistive devices. 9-Zlygnykpoy-jllgmij completes the activity by him/herself with no assistance from a helper. 5-Set-up or Clean-up Assistance-helper sets up or cleans up; patient completes activity. [place] assists only prior to or following the activity. 4-Supervision or Touching Assistance-helper provides verbal cues and/or touching/steadying and/or contact guard assistance as patient completes activity . Assistance may be provided throughout the activity or intermittently. 3-Partial/Moderate Assistance-helper does LESS THAN HALF the effort. [place] lifts, holds or supports trunk or limbs, but provides less than half the effort. 2-Substantial/Maximal Assistance-helper does MORE THAN HALF the effort. [place] lifts or holds trunk or limbs and provides more than half the effort. 5-Ucghubeyo-pctpqs does ALL the effort. Patient does none of the effort to complete the activity. Or, the assistance of 2 or more helpers is required for the patient to complete the activity. If activity was not attempted, code reason: 7-Patient Refused. 9-Not Applicable-not attempted and the patient did not perform the activity before the current illness, exacerbation or injury. 10-Not Attempted due to Environmental Limitations-(lack of equipment, weather restraints, etc.). 88-Not Attempted due to Medical Conditions or Safety Concerns. Eating (QC): 2 (mod to max A per pt and (pt able to complete with LUE, though R handed. 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 Pt expresses decreased movement/ control in RUE. Pt completes AROM EOB- (bed mob SUP), increased time required for muscular activation/ coordination, decreased strength of RUE. Pt completes jewelry drilling machine operator strength (decreased R jewelry drilling machine operator strength), completes wrist ext/ flexion, elbow flexion, and shoulder scaption/ flexion (with mod A). Pt completes hand sponge exercises, utilizes LUE to stabilize hand sponge during extension of fingers, requires assist with full extension. Pt completes 10x. Pt then educated on theraband ex when increased strengthening, pt educated on completing AROM at this time and progressing to theraband. Pt educated on use of muscle/ increasing activity during activities by utilizing RUE. Pt agrees. Pt completes sponge bath/ oral hygiene (above) with skilled cues for positioning and utilization of affected UE. Pt safe EOB, good balance/ gross (proximal) control. Pt left EOB, denies return to bed, present, all needs met, call light in reach. Education OT Patient Education: Correct positioning, Exercise program, Home exercise program, Instructions to caregiver, Purpose of tx/functional activities, Safety issues Teaching Recipient: Patient Teaching Methods: Demonstration, Discussion Response to Teaching: Verbalize Understanding, Return Demonstration OT Pedorthist Goals Halfway Goals Time Frame: Dec 14, 2019 Eating (QC): 6 Oral Hygiene (QC): 6 Toileting Hygiene (QC): 6 Shower/Bathe Self (QC): 6 Upper Body Dressing (QC): 6 Lower Body Dressing (QC): 6 On/Off Footwear (QC): 6 Additional Goals: 1-Demonstrate ADL Tasks, 2-Verbalize Understanding, 3- ImproveStrength/Jamel 1=Demonstrate adherence to instructed precautions during ADL tasks. 2=Patient will verbalize/demonstrate understanding of assistive devices/modifications for ADL. 3=Patient will improve strength/tolerance for activity to enable patient to perform ADL's. OT Education/Plan Problem List/Assessment Assessment: Decreased Activ Tolerance, Decreased UE Strength, Impaired Coordination, Impaired I ADL's, Impaired Self-Care Skills Discharge Recommendations Plan/Recommendations: Continue POC Therapy Discharge Recommendati: Scheduled Assistance, Post Acute OT Treatment Plan/Plan of Care Treatment,Training & Education: Yes Patient would benefit from OT for education, treatment and training to promote independence in ADL's, mobility, safety and/or upper extremity function for ADL's. Plan of Care: ADL Retraining, Caregiver Training, Functional Mobility, UE Funct Exercise/Act, UE Neuromus Re-Ed/Coord Treatment Duration: Dec 14, 2019 Frequency: 5 times per week Estimated Hrs Per Day: .25 hour per day Agreement: Yes Rehab Potential: Fair Time/GCodes Start Time: 11:20 Stop Time: 11:45 Total Time Billed (hr/min): 25 Billed Treatment Time 1, ADL, EX (25) LAM JAIME OTR Dec 01, 2019 14:03
--- NOTE | 2019-12-01 17:17 | Discharge Summary ---
Diagnosis/Chief Complaint Date of Admission Nov 30, 2019 at 03:50 Date of Discharge Dec 01, 2019 at 16:11 Discharge Date: Dec 01, 2019 Admission Diagnosis Admission Diagnosis 1. Right-sided facial drooping 2. Slurred speech. 3. Known insulin-dependent diabetes 4. Known hypertension Discharge Diagnosis 1. Right-sided facial drooping secondary to left thalamus acute/subacute i schemic infarction 2. Slurred speech secondary to #1. 3. Known insulin-dependent diabetes 4. Known hypertension Reason Hospital Visit 49-year-old male presents to [facility] emergency department via EMS after apparently having right facial droop and slurred speech. According to his last known time of normal facial and speech was at 1030 p.m. when he went to bed on November 29, 2019. It apparently went to the restroom at 130 in the morning on November 29 and was noted to have right facial droop and slurred speech. He had no weakness of the upper extremities or lower extremities. She denied any dizziness palpitations or any headaches. There is no reported chest pain. He is a known diabetic and requires insulin. He is also hypertensive and does take his blood pressure medications every day. Discharge Summary Hospital Course Was the Problem List Reviewed?: Yes Hospital Course Patient was admitted in the morning of November 30, 2019 with slurred speech. He was admitted to ICU 12 where he was monitored closely. He ultimately underwent MRI of the brain which revealed acute/subacute infarction of the left thalamus. Initially in the emergency department it was felt that he may have a Alex's palsy and he was started on Solu-Medrol. After the infarction was noted the Solu-Medrol was discontinued. He was started on aspirin 325 mg daily. Within the first 24 hours he was still with slurred speech but at least not quite as se luis enrique as presentation. He was also ambulatory. He was started back on his home medications of lisinopril 40 mg daily as well as amlodipine 5 mg daily. His blood pressure was noted to be controlled during the course of his hospital stay. He initially had been placed on insulin sliding scale. He will be started on his regular insulin at home once he is on acute inpatient rehabili tation floor. He was ultimately discharged to the rehabilitation floor during the afternoon of December 01, 2019 Labs Laboratory Tests 11/30/19 02:31: Eosinophils # (Auto) 0.5H, Potassium Level 3.0L, Anion Gap 15H, Blood Urea Nitrogen 22H, Glucose Level 133H, Mean Blood Glucose 200H, Hemoglobin A1c 8.6H, Alkaline Phosphatase 38L, Triglycerides Level 383H, VLDL Cholesterol 77H, HDL Cholesterol 35L 11/30/19 03:25: 11/30/19 04:49: Glucometer 180H 11/30/19 08:00: Urine Glucose (UA) 2+H 11/30/19 10:29: Glucometer 338H 11/30/19 11:26: Glucometer 320H 11/30/19 17:55: Glucometer 366H 11/30/19 22:48: Glucometer 324H 12/01/19 03:13: White Blood Count 13.1H, Mean Platelet Volume 10.8H, Neutrophils (%) (Auto) 81H, Lymphocytes (%) (Auto) 9L, Neutrophils # (Auto) 10.5H, Monocytes # (Auto) 1.3H, Carbon Dioxide Level 19L, Blood Urea Nitrogen 25H, Creatinine 1.34H, Glucose Level 330H, Alkaline Phosphatase 38L, Triglycerides Level 207H, VLDL Cholesterol 41H 12/01/19 05:17: Glucometer 307H 12/01/19 12:09: Glucometer 306H 12/01/19 16:58: Glucometer 269H CT head, CT angios of head, MRI of head Procedures None. Discharge Physical Examination Allergies: Coded Allergies: sitagliptin (Verified Allergy, Unknown, Rash, 11/30/19) Vitals & I&Os Vital Signs Date Time Temp Pulse Resp B/P (MAP) Pulse Ox O2 Delivery O2 Flow Rate FiO2 12/01/19 16:00 78 16 136/81 (99) 95 Room Air 12/01/19 16:00 36.9 General Appearance: Alert, No Acute Distress Respiratory: Clear to Auscultation Cardiovascular: Regular Rate Abdominal: Soft Skin: No Rashes Neuro: Normal Gait, Other (slurred speech noted) Psych/Mental Status: Mental Status NL Discharge Home Medications Reviewed and agree with Discharge Medication list on patient's Discharge Instruction sheet Instructions to Patient/Family Please see electronic discharge instructions given to patient. Clinical Quality Measures DVT/VTE Risk/Contraindication: Risk Factor Score Per Nursin RFS Level Per Nursing on Admit: 2=Moderate GLENN ALBERTO MD Dec 01, 2019 17:17
== END 2019-12-01 16:11 ==
LOC: EDUNIT# 02:12 → ER 02:17 → ICU 03:50
PROVIDERS: ADMIT Family Medicine; ATTEND Family Medicine
DX: I63.9 Cerebral infarction, unspecified (principal); R29.810 Facial weakness; R47.81 Slurred speech; E11.9 Type 2 diabetes mellitus without complications; I10 Essential (primary) hypertension; Z79.4 Long term (current) use of insulin; Z79.899 Other long term (current) drug therapy; E78.00 Pure hypercholesterolemia, unspecified; R29.703 NIHSS score 3
CPT/HCPCS: 36415; 70450; 70496; 70498; 70551; 71045; 80053; 80061; 81000; 82962; 83036; 83735; 84484; 85025; 85379; 85610; 85730; 93005; 93041; 93880

== ENCOUNTER 2019-12-01 16:06 | Inpatient (IN) | payer BC ==
[~2019-12-01] VITALS: Ht 188 cm; Wt 140.4 kg
[~2019-12-01 16:06] MED LIST: AMLO5TAB9 PO; FENO160T12 PO; IBUP-2473 PO; INSU100V16 SQ; INSU100V5 SQ; LISI40TA PO; METF750T45 PO
[2019-12-01] MEDS ORDERED: diphenhydrAMINE 25 MG TAB (BENADRYL) PO PRN (16:15)
[2019-12-01] MEDS ORDERED: MELATONIN 3 MG TABLET PO PRN (16:15)
[2019-12-01] MEDS ORDERED: guaiFENesin/CODEINE (ROBITUSSIN AC) 10ML UDC PO PRN (16:15)
[2019-12-01] MEDS ORDERED: ENOXAPARIN 40 MG/0.4 ML (LOVENOX) SYR SC SCH (16:15)
[2019-12-01] MEDS ORDERED: LOPERAMIDE 2 MG (IMODIUM) TABLET PO PRN (16:15)
[2019-12-01] MEDS ORDERED: ACETAMINOPHEN 500 MG TAB (TYLENOL) PO PRN (16:15)
[2019-12-01] MEDS ORDERED: FLEET ENEMA ADULT 1 EA BTL PR PRN (16:15)
[2019-12-01] MEDS ORDERED: CALCIUM CARBONATE 500 MG (TUMS) TAB.CHEW PO PRN (16:15)
[2019-12-01] MEDS ORDERED: ALPRAZolam 0.25 MG (XANAX) TAB PO PRN (16:15)
[2019-12-01] MEDS ORDERED: LACTULOSE SYRUP 10GM/15ML (ENULOSE) 30ML UDC PO PRN (16:15)
[2019-12-01] MEDS ORDERED: DOCUSATE SODIUM 100 MG (COLACE) CAP PO PRN (16:15)
[2019-12-01] MEDS ORDERED: BISACODYL 10 MG SUPP (DULCOLAX) PR PRN (16:15)
[2019-12-01] MEDS ORDERED: ONDANSETRON 4 MG (ZOFRAN) ORAL DISSOLVE TAB PO PRN (16:15)
[2019-12-01 16:40] VITALS: BP 133/73
--- NOTE | 2019-12-01 17:13 | PM&R Post Admission Assessment ---
PM&R Date of Visit: Dec 01, 2019 Time of Visit: 17:00 History of Present Illness CC: CVA w/right sided weakness residual HPI: This is a 49yoWM clinic patient of Dr Deluna who is maintained on insulin for DM and meds for HTN who presented to IRF in need of recovery from right sided weakness from CVA confirmed on MRI. Carotid USG was negative for stenosis. Patient presented with symptoms similar to Alex's palsy and stroke center was consulted (not a tPA candidate anyway since he presented >3 hours after known well time) and they recommended IV steroids and admit to observation for resumed Alex's palsy since right sided facial weakness was the only symptom but apparently the stroke progressed after admission and he then had right sided weakness of right arm and right leg along with difficulty speaking and swallowing. His is at the bedside and very supportive. 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 Past Ucwyaqw-Ktpdne-Tvezuu Hx Past Med/Social Hx: Reviewed Nursing Past Med/Soc Hx, Reviewed and Corrections made Patient Social History Marrital Status: Employed/Student: employed ([employer] IT support) Alcohol Use: Denies Use Smoking Status: Never a Smoker Recent Foreign Travel: No Contact w/other who traveled: No Recent Hopitalizations: No Recent Infectious Disease Expo: No Seasonal Allergies Seasonal Allergies: No Past Medical History Surgeries: Appendectomy, Orthopedic Cardiac: High Cholesterol, Hypertension Neurological: Stroke (11/29/19) Endocrine: Diabetes, Insulin dep History of Blood Disorders: No Occupation: [employer] PM&R Allergy/Meds/Data Review Allergies Coded Allergies: sitagliptin (Verified Allergy, Unknown, Rash, 11/30/19) Home Medications Scheduled Amlodipine Besylate (Amlodipine Besylate), 5 MG PO DAILY, (Reported) Fenofibrate (Fenofibrate), 160 MG PO DAILY, (Reported) Insulin Aspart (Novolog), 30 UNITS SQ 1200,1700 WITH MEALS, (Reported) Insulin Determir (Levemir), 60 UNITS SQ BID, (Reported) Lisinopril (Lisinopril), 40 MG PO DAILY, (Reported) Metformin HCl (Metformin HCl ER), 1,500 MG PO DAILY, (Reported) Scheduled PRN Ibuprofen (Ibuprofen), 1,200 MG PO Q12H PRN for PAIN-MILD (1-4), (Reported) Current Medications Current Medications Reviewed Review of Systems Constitutional: see HPI, malaise, weakness EENTM: hoarseness, mouth swelling Respiratory: no symptoms reported Cardiovascular: no symptoms reported Gastrointestinal: no symptoms reported Genitourinary: no symptoms reported Musculoskeletal: no symptoms reported Skin: no symptoms reported Psychiatric/Neurological: Anxiety, Depressed, Numbness, Paresthesia, Tremors, Weakness All Other Systems Reviewed Negative Unless Noted: Yes Physical Exam Physical Exam Vital Signs Vital Signs - First Documented 12/01/19 16:40 Temp 36.5 Pulse 75 Resp 16 B/P (MAP) 133/73 Pulse Ox 94 O2 Delivery Room Air Capillary Refill : Height, Weight, BMI Height: '" Weight: lbs. oz. kg; 40.43 BMI Method: General Appearance: No Apparent Distress, WD/WN, Anxious Eyes: Bilateral Eye Normal Inspection, Bilateral Eye PERRL HEENT: PERRL/EOMI, Normal ENT Inspection, Pharynx Normal Neck: Full Range of Motion, Normal Inspection, Non Tender, Supple, Carotid Bruit Respiratory: Chest Non Tender, Lungs Clear, Normal Breath Sounds, No Accessory Muscle Use, No Respiratory Distress Cardiovascular: Regular Rate, Rhythm, No Edema, No Gallop, No JVD, No Murmur, Normal Peripheral Pulses Gastrointestinal: Normal Bowel Sounds, No Organomegaly, No Pulsatile Mass, Non Tender, Soft Back: Normal Inspection, No CVA Tenderness, No Vertebral Tenderness Extremity: Normal Capillary Refill, Normal Inspection, Normal Range of Motion, Non Tender, No Calf Tenderness, No Pedal Edema Neurologic/Psychiatric: Alert, Oriented x3, Normal Mood/Affect, Facial Droop (right), Motor Weakness (right arm and leg 2/5) Skin: Normal Color, Warm/Dry Lymphatic: No Adenopathy PM&R Medical Assessment & Plan REHAB/MEDICAL ASSESSMENT AND PLAN: REHAB IMPAIRMENT GROUP: CVA w/right hemiparesis ETIOLOGIC DIAGNOSIS: CVA w/right hemiparesis The comorbidities that impact the patients function and/or functional outcome by: acute depression and difficulty coping but tries to remain stoic, insulin dependence, HTN labile readings REHAB PLAN: The patient is being admitted to our comprehensive inpatient rehabilitation facility and can tolerate the intensity of service consisting of at least: 180 minutes of therapy a day, 5 out of 7 days a week Rehab treatment will consist of: PT OT ST will focus on helping regain independence of ADL's and ambulation and be able to DC home with The patient/family has a good understanding of our discharge process and will benefit from an interdisciplinary inpatient rehabilitation program. The patient has potential to make improvement and is in need of at least two of the following multidisciplinary therapies including but not limited to physical, occupational, speech, and prosthetics and orthotics. Additionally the patient will need services from respiratory, nutritional services, wound care, psychology, etc. (Customize this to each patient). Given the patients complex condition and risk of further medical complications, rehabilitation services cannot be safely or effectively provided at a lower level of care such as a [place] [facility] facility. BARRIERS TO DISCHARGE: Right sided weakness catastrophic CVA ESTIMATED LOS: 14 days DISPOSITION: Home with RELEVANT CHANGES SINCE PREADMISSION SCREENING: I have compared the patients medical and functional status at the time of the preadmission screening and there are: no changes PROGNOSIS: Good REHABILITATION GOALS: 1. PT OT ST will focus on helping regain independence of ADL's and ambulation and be able to DC home with All the above goals were reviewed with the patient and he/she is in agreement. By signing this document, I acknowledge that I have personally performed a full physical examination on this patient within 24 hours of admission to this inpatient rehabilitation facility and have determined the patient to be able to tolerate the above course of treatment at an intensive level for a reasonable period of time. I will be completing a detailed individualized Plan of Care for this patient by day #4 of the patients stay based upon the Preadmission Screen, the Post-Admission Evaluation, and the therapy evaluations. Admission Dx/Comorbidities: (1) Hemiparesis affecting dominant side as late effect of cerebrovascular accident ICD Codes: I69.359 - Hemiplegia and hemiparesis following cerebral infarction affecting unspecified side (2) CVA (cerebral vascular accident) ICD Codes: I63.9 - Cerebral infarction, unspecified (3) Facial paralysis on right side Status: Acute ICD Codes: G51.0 - Alex's palsy (4) HTN (hypertension) Status: Acute ICD Codes: I10 - Essential (primary) hypertension (5) IDDM (insulin dependent diabetes mellitus) Status: Acute ICD Codes: E11.9 - Type 2 diabetes mellitus without complications; Z79.4 - senior care (current) use of insulin (6) Slurred speech Status: Acute ICD Codes: R47.81 - Slurred speech Assessment/Plan Assessment and Plan Assess & Plan/Chief Complaint Assessment: CVA with right sided weakness Right facial droop HTN DM insulin dependence HGA1C 8.4 HLP HTG CRI 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
[2019-12-01 18:00] VITALS: BP 133/73
[2019-12-01] MEDS: ENOXAPARIN 40 MG/0.4 ML (LOVENOX) SYR SC SCH (18:30)
--- NOTE | 2019-12-01 19:20 | NUR ---
lucille brandon admitted to room 222-1, with an admitting diagnosis of cva, on 12/01/19 from [facility] , accompanied by .LUCILLE BRANDON introduced to surroundings, call light, bed controls, phone, TV, temperature control, lights, meal times, smoking policy, visitor policy, side rail policy, bathrooms and showers. Patient Rights given to patient in the handbook.LUCILLE BRANDON verbalizes understanding that [facility] is not responsible for the loss or damage to any personal effects or valuables that are kept in the patients posession during their hospitalization. The following Patient Care Plans were discussed with the : Discharge Planning, ,, and . LUCILLE BRANDON verbalizes understanding of Interdisciplinary Patient Education. Patient was informed about the Rapid Response Team and its purpose. Patient received Patient Rights Booklet, which includes Privacy Act Statement and Data Collection Information Summary.
[2019-12-01] MEDS: DOCUSATE SODIUM 100 MG (COLACE) CAP PO SCH (20:53)
[2019-12-01] MEDS: FENOFIBRATE 134 MG (LOFIBRA) CAPSULE PO SCH (20:53)
[2019-12-01] MEDS: polyethylene glycoL POWDER 17 GM (MIRALAX) PACK PO SCH (20:53)
[2019-12-01] MEDS: SENNA W/DOCUSATE (SENOKOT S) TABLET PO SCH (20:53)
[2019-12-01] MEDS ORDERED: ZOLPIDEM 5 MG (AMBIEN) TAB PO PRN (21:00)
[2019-12-01] MEDS ORDERED: HYDROcodone/APAP 5 MG/325 MG (LORTAB) TAB PO PRN (21:00)
--- OUTSIDE RECORDS SUMMARY | 2019-12-01 22:12 | XMS REPORT | Continuity of Care Document ---
Author Organization Unknown Address Unknown Phone Unavailable Allergies Active Description Code Type Severity Reaction Onset Reported/Identified Relationship to Patient Clinical Status Yes No Allergy Information Available [id number] Drug Allergy Unknown N/A 020 Yes sitagliptin [id number] Drug Aller gy Unknown Rash 11/30/2019 Medications There is no data. Problems Date Dx Coded Attending Type Code Diagnosis Diagnosed By 06/17/2019 DOLLY ROSARIO, GLENN Macedo Ot M25.551 PAIN IN RIGHT HIP 11/30/2019 DOLLY ROSARIO, GLENN Macedo Ot M25.551 PAIN IN RIGHT HIP Procedures [...] blood basophil count (count/volume) 0.1 10*3/uL 0.0-0.1 Comprehensive metabolic panel - 11/30/19 02:31 Serum or plasma sodium measurement (moles/volume) 141 mmol/L 135-145 Serum or plasma potassium measurement (moles/volume) 3.0 mmol/L 3.6-5.0 Serum or plasma chloride measurement (moles/volume) 105 mmol/L 98-107 Carbon dioxide 21 mmol/L 21-32 Serum or plasma anion gap determination (moles/volume) 15 mmol/L 5-14 Serum or plasma urea nitrogen measurement (mass/volume ) 22 mg/dL 7-18 Serum or plasma creatinine measurement (mass/volume) 1.19 mg/dL 0.60-1.30 Serum or plasma urea nitrogen/creatinine mass ratio 18 NRG Serum or plasma creatinine measurement w ith calculation of estimated glomerular filtration rate > NRG Serum or plasma glucose measurement (mass/volume) 133 mg/dL 70-105 Serum or plasma calcium measurement (mass/volume) 9.5 mg/dL 8.5-10.1 Serum or plasma total bilirubin measurement (mass/volu me) 0.4 mg/dL 0.1-1.0 Serum or plasma alkaline phosphatase yves surement (enzymatic activity/volume) 38 U/L 40-136 Serum or plasma aspartate aminotransfera se measurement (enzymatic activity/volume) 19 U/L 5-34 Serum or plasma alanine aminotransferase measurement (enzymatic activity/volume) 31 U/L 0-55 Serum or plasma protein measurement (mass/volume) 7.1 g/dL 6.4-8.2 Serum or plasma albumin measurement (mass/volume) 4.3 g/dL 3.2-4.5 CALCIUM CORRECTED 9.3 mg/dL 8.5-10.1 Serum or plasma troponin i.cardiac measu rement (mass/volume) - 11/30/19 02:31 Serum or plasma troponin i.cardiac measurement (mass/v olume) < ng/mL <0.028 PT panel in platelet poor plasma by coag ulation assay - 11/30/19 02:31 Prothrombin time (PT) in platelet poor plasma by coagu lation assay 13.1 s 12.2-14.7 INR in platelet poor plasma or blood by coagulation as say 1.0 0.8-1.4 Activated partial thromboplastin time (a PTT) in platelet poor plasma bycoagulation assay - 11/30/19 02:31 Activated partial thromboplastin time (a PTT) in platelet poor plasma bycoagulation assay 24 s 24-35 Fibrin D-dimer FEU measurement in platel et poor plasma (mass/volume) - 11/30/19 02:31 Fibrin D-dimer FEU measurement in platelet poor plasma (mass/volume) < ug/mL 0.00-0.49 Lipid 1996 panel - 11/30/19 02:31 Serum or plasma triglyceride measurement (mass/volume) 383 mg/dL <150 Serum or plasma cholesterol measurement (mass/volume) 147 mg/dL < 200 Serum or plasma cholesterol in HDL measurement (mass/v olume) 35 mg/dL 40-60 Cholesterol in LDL [mass/volume] in serum or plasma by direct assay 66 mg/dL 1-129 Serum or plasma cholesterol in VLDL measurement (mass/ volume) 77 mg/dL 5-40 Hemoglobin A1c measurement - 11/30/19 02 :31 Blood hemoglobin A1C measurement (mass/volume) 8.6 % 4.0-5.6 MEAN BLOOD GLUCOSE 200 % <=126 Magnesium - 11/30/19 03:25 Magnesium 1.7 mg/dL 1.6-2.4 Capillary blood glucose measurement by g lucometer (mass/volume) - 11/30/19 04:49 Capillary blood glucose measurement by glucometer (mas s/volume) 180 mg/dL 70-110 Complete urinalysis with reflex to cultu re - 11/30/19 08:00 Urine color determination YELLOW NRG Urine clarity determination CLEAR NR G Urine pH measurement by test strip 5.0 5-9 Specific gravity of urine by test strip 1.020 1.016-1.022 Urine protein assay by test strip, semi-quantitative NEGATIVE NEGATIVE Urine glucose detection by automated test strip 2+ NEGATIVE Erythrocytes detection in urine sediment by light micr oscopy NEGATIVE NEGATIVE Urine ketones detection by automated test strip NE GATIVE NEGATIVE Urine nitrite detection by test strip NEGATIVE NEGATIVE Urine total bilirubin detection by test strip NEGA TIVE NEGATIVE Urine urobilinogen measurement by automated test strip (mass/volume) 0.2 mg/dL < = 1.0 Urine leukocyte esterase detection by dipstick NEG ATIVE NEGATIVE Automated urine sediment erythrocyte cou nt by microscopy (number/high power field) NONE NRG Automated urine sediment leukocyte count by microscopy (number/high power field) RARE NRG Bacteria detection in urine sediment by light microsco py TRACE NRG Crystals detection in urine sediment by light microsco py NONE NRG Casts detection in urine sediment by light microscopy NONE NRG Mucus detection in urine sediment by light microscopy NEGATIVE NRG Complete urinalysis with reflex to culture NO NRG Capillary blood glucose measurement by g lucometer (mass/volume) - 11/30/19 10:29 Capillary blood glucose measurement by glucometer (mas s/volume) 338 mg/dL 70-110 Capillary blood glucose measurement by g lucometer (mass/volume) - 11/30/19 11:26 Capillary blood glucose measurement by glucometer (mas s/volume) 320 mg/dL 70-110 Capillary blood glucose measurement by g lucometer (mass/volume) - 11/30/19 17:55 Capillary blood glucose measurement by glucometer (mas s/volume) 366 mg/dL 70-110 Capillary blood glucose measurement by g lucometer (mass/volume) - 11/30/19 22:48 Capillary blood glucose measurement by glucometer (mas s/volume) 324 mg/dL 70-110 Complete blood count (CBC) with automate d white blood cell (WBC) differential - 12/01/19 03:13 Blood leukocytes automated count (number/volume) 13.1 10*3/uL 4.3-11.0 Blood erythrocytes automated count (number/volume) 4.43 10*6/uL 4.35-5.85 Venous blood hemoglobin measurement (mass/volume) 14.1 g/dL 13.3-17.7 Blood hematocrit (volume fraction) 41 % 40-54 Automated erythrocyte mean corpuscular volume 94 [ foz_us] 80-99 Automated erythrocyte mean corpuscular h emoglobin (mass per erythrocyte) 32 pg 25-34 Automated erythrocyte mean corpuscular h emoglobin concentration measurement (mass/volume) 34 g/dL 32-36 Automated erythrocyte distribution width ratio 13. 6 % 10.0- 14.5 Automated blood platelet count (count/volume) 226 10*3/uL 130-400 Automated blood platelet mean volume measurement 10.8 [foz_us] 7.4-10.4 Automated blood neutrophils/100 leukocytes 81 % 42-75 Automated blood lymphocytes/100 leukocytes 9 % 12-44 Blood monocytes/100 leukocytes 10 % 0-12 Automated blood eosinophils/100 leukocytes 0 % 0-10 Automated blood basophils/100 leukocytes 0 % 0-10 Blood neutrophils automated count (number/volume) 10.5 10*3 1.8-7.8 Blood lymphocytes automated count (number/volume) 1.2 10*3 1.0-4.0 Blood monocytes automated count (number/volume) 1. 3 10*3 0.0-1.0 Automated eosinophil count 0.0 10*3/uL 0 .0-0.3 Automated blood basophil count (count/volume) 0.0 10*3/uL 0.0-0.1 Comprehensive metabolic panel - 12/01/19 03:13 Serum or plasma sodium measurement (moles/volume) 137 mmol/L 135-145 Serum or plasma potassium measurement (moles/volume) 4.3 mmol/L 3.6-5.0 Serum or plasma chloride measurement (moles/volume) 106 mmol/L 98-107 Carbon dioxide 19 mmol/L 21-32 Serum or plasma anion gap determination (moles/volume) 12 mmol/L 5-14 Serum or plasma urea nitrogen measurement (mass/volume ) 25 mg/dL 7-18 Serum or plasma creatinine measurement (mass/volume) 1.34 mg/dL 0.60-1.30 Serum or plasma urea nitrogen/creatinine mass ratio 19 NRG Serum or plasma creatinine measurement w ith calculation of estimated glomerular filtration rate 57 NRG Serum or plasma glucose measurement (mass/volume) 330 mg/dL 70-105 Serum or plasma calcium measurement (mass/volume) 9.3 mg/dL 8.5-10.1 Serum or plasma total bilirubin measurement (mass/volu me) 0.4 mg/dL 0.1-1.0 Serum or plasma alkaline phosphatase yves surement (enzymatic activity/volume) 38 U/L 40-136 Serum or plasma aspartate aminotransfera se measurement (enzymatic activity/volume) 13 U/L 5-34 Serum or plasma alanine aminotransferase measurement (enzymatic activity/volume) 27 U/L 0-55 Serum or plasma protein measurement (mass/volume) 7.3 g/dL 6.4-8.2 Serum or plasma albumin measurement (mass/volume) 4.1 g/dL 3.2-4.5 CALCIUM CORRECTED 9.2 mg/dL 8.5-10.1 Lipid 1996 panel - 12/01/19 03:13 Serum or plasma triglyceride measurement (mass/volume) 207 mg/dL <150 Serum or plasma cholesterol measurement (mass/volume) 144 mg/dL < 200 Serum or plasma cholesterol in HDL measurement (mass/v olume) 44 mg/dL 40-60 Cholesterol in LDL [mass/volume] in serum or plasma by direct assay 80 mg/dL 1-129 Serum or plasma cholesterol in VLDL measurement (mass/ volume) 41 mg/dL 5-40 Capillary blood glucose measurement by g lucometer (mass/volume) - 12/01/19 05:17 Capillary blood glucose measurement by glucometer (mas s/volume) 307 mg/dL 70-110 Capillary blood glucose measurement by g lucometer (mass/volume) - 12/01/19 12:09 Capillary blood glucose measurement by glucometer (mas s/volume) 306 mg/dL 70-110 Capillary blood glucose measurement by g lucometer (mass/volume) - 12/01/19 16:58 Capillary blood glucose measurement by glucometer (mas s/volume) 269 mg/dL 70-110 Capillary blood glucose measurement by g lucometer (mass/volume) - 12/01/19 20:37 Capillary blood glucose measurement by glucometer (mas s/volume) 305 mg/dL 70-110 Encounters ACCT No. Visit Date/Time Discharge Status Pt. Type Provider Facility Loc./Unit Complaint [id number] 11/30/2019 03:50:00 020 16:11:00 DIS Inpatient GLENN ALBERTO MD [facility] ICU R FACIAL PARALYSIS SL URRED SPEECH,CVA VS MAHMOOD'S [id number] 06/02/2019 09:49:00 019 23:59:59 CLS Outpatient GLENN ALBERTO MD [facility] RAD R HIP PAIN [id number] 12/01/2019 17:02:[address] Inpatient TOYA OLGUIN DO [facility] [place] IRF CVA
[2019-12-02 06:00] VITALS: BP 126/68
--- NOTE | 2019-12-02 06:00 | NUR ---
pt sitting in chair most of noc, resting with eyes closed at intervals .
[2019-12-02 06:16] LABS: BASOPHILS % (AUTO) 0 % (0-10); EOSINOPHILS # (AUTO) 0.2 10^3/uL (0.0-0.3); EOSINOPHILS % (AUTO) 1 % (0-10); HEMATOCRIT 43 % (40-54); HEMOGLOBIN 14.4 G/DL (13.3-17.7); LYMPHOCYTES % (AUTO) 14 % (12-44); MEAN CORPUSCULAR HEMOGLOBIN 31 PG (25-34); MEAN CORPUSCULAR HGB CONC 33 G/DL (32-36); MEAN CORPUSCULAR VOLUME 94 FL (80-99); MEAN PLATELET VOLUME 10.8 FL (7.4-10.4); MONOCYTES # (AUTO) 1.5 X 10^3 (0.0-1.0); MONOCYTES % (AUTO) 11 % (0-12); NEUTROPHILS # (AUTO) 10.1 X 10^3 (1.8-7.8); NEUTROPHILS % (AUTO) 74 % (42-75); PLATELET COUNT 216 10^3/uL (130-400); RED CELL DISTRIBUTION WIDTH 13.9 % (10.0-14.5); WHITE BLOOD COUNT 13.7 10^3/uL (4.3-11.0)
[2019-12-02] MEDS: inSUlin ASPART (NovoLOG) 1 UNIT/0.01 ML (CHARGE PER UNIT) SC SCH ×3 (06:16→17:37)
[2019-12-02] MEDS: ENOXAPARIN 40 MG/0.4 ML (LOVENOX) SYR SC SCH ×2 (06:16→17:36)
[2019-12-02 06:33] LABS: ALANINE AMINOTRANSFERASE 24 U/L (0-55); ALBUMIN 4.4 GM/DL (3.2-4.5); ALKALINE PHOSPHATASE 40 U/L (40-136); BILIRUBIN,TOTAL 0.7 MG/DL (0.1-1.0); BUN/CREATININE RATIO 19; CALCIUM 9.4 MG/DL (8.5-10.1); CARBON DIOXIDE 21 MMOL/L (21-32); CHLORIDE 104 MMOL/L (98-107); CREATININE SERUM 1.25 MG/DL (0.60-1.30); GFR ESTIMATED > 60; GLUCOSE 283 MG/DL (70-105); POTASSIUM 4.2 MMOL/L (3.6-5.0); SODIUM 137 MMOL/L (135-145); TOTAL PROTEIN 7.4 GM/DL (6.4-8.2)
[2019-12-02] MEDS: ASPIRIN E.C. 81 MG (ECOTRIN) TAB PO SCH (08:49)
[2019-12-02] MEDS: SENNA W/DOCUSATE (SENOKOT S) TABLET PO SCH ×2 (08:49→20:13)
[2019-12-02] MEDS: amLODIPine 5 MG (NORVASC) TAB PO SCH (08:49)
[2019-12-02] MEDS: DOCUSATE SODIUM 100 MG (COLACE) CAP PO SCH ×2 (08:49→20:13)
[2019-12-02] MEDS: polyethylene glycoL POWDER 17 GM (MIRALAX) PACK PO SCH ×2 (08:50→20:25)
[2019-12-02] MEDS: lisINopril 40 MG (PRINIVIL) TABLET PO SCH (08:51)
--- NOTE | 2019-12-02 09:22 | Physical Therapy Evaluation ---
PT Evaluation-General Medical Diagnosis Admission Date Dec 01, 2019 at 17:02 Medical Diagnosis: CVA Onset Date: Dec 01, 2019 Therapy Diagnosis Therapy Diagnosis: weakness; abn gait; hemiparesis dominant side Precautions Precautions/Isolations: Fall Prevention, Standard Precautions Referral Physician: Vinay Reason for Referral: Evaluation/Treatment Medical History Pertinent Medical History: DM, HTN Current History Admitted to acute care with right side weakness and slurred speech; transferred to ARU for continued medical management and skilled therapy intervention. Reviewed History: Yes Social History Home: Single Level Current Living Status: Spouse Entry Into Home: Stairs With Railing PT Steps Into Home: 1 Prior Prior Level of Function SCALE: Activities may be completed with or without assistive devices. 5-Xvgalzklbl-vocgbfj completes the activity by him/herself with no assistance from a helper. 5-Set-up or Clean-up Assistance-helper sets up or cleans up; patient completes activity. [place] assists only prior to or following the activity. 4-Supervision or Touching Assistance-helper provides verbal cues and/or touching/steadying and/or contact guard assistance as patient completes activity. Assistance may be provided throughout the activity or intermittently. 3-Partial/Moderate Assistance-helper does LESS THAN HALF the effort. [place] lifts, holds or supports trunk or limbs, but provides less than half the effort. 2-Substantial/Maximal Assistance-helper does MORE THAN HALF the effort. [place] lifts or holds trunk or limbs and provides more than half the effort. 8-Zatyygpwl-lveqzt does ALL the effort. Patient does none of the effort to complete the activity. Or, the assistance of 2 or more helpers is required for the patient to complete the activity. If activity was not attempted, code reason: 7-Patient Refused. 9-Not Applicable-not attempted and the patient did not perform the activity before the current illness, exacerbation or injury. 10-Not Attempted due to Environmental Limitations-(lack of equipment, weather restraints, etc.). 88-Not Attempted due to Medical Conditions or Safety Concerns. Bed Mobility: 6 Transfers (B,C,W/C): 6 Gait: 6 Stairs: 6 Indoor Mobility (Ambulation): Independent Stairs: Independent Prior Devices Use: None Pt was independent and active. 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 PT Evaluation-Current Subjective Pt agrees to PT. Pt is of few words, but cooperative and answers all questions. Pain Location: No Pain Reported Objective Patient Orientation: Person, Place, Time, Situation ROM/Strength ROM Lower Extremities WNL Strength Lower Extremities Left LE strength is WNL Right LE strenght is grossly 4/5; DF right decreases with fatigue to 3/5 Integumentary/Posture Integumentary Refer to nursing assessment. Bowel Incontinence: No Bladder Incontinence: No Posture normal and symmetrical; slightly rounded shoulders. 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 ) Chair/Yob-ug-Vyomi Xfer(QC): 3 Toilet Transfer: 3 Car Transfer (QC): 3 Pt tends to be a bit impulsive and requires cues to slow down and take caution. Follows cues well. Gait Does the Patient Walk?: Yes Mode of Locomotion: Walk Anticipated Mode of Locomotion: Walk Walk 10 feet (QC): 3 Walk 50 ft with 2 Turns(QC): 3 Walk 150 ft (QC): 3 Walking 10ft/uneven surface-QC: 3 Distance: >600 ft total but with rest breaks. Comments/Gait Description CG-min assist with gait due to intermittent episodes of unsteadiness and some difficulty with turning. Pt is slightly impulsive and tends to throw himself off balance; CG-Min assist for safety and he responds well to cues and does correct. Gait training focused on DF and toe clearance this date. Walked with the SPT and without; the cane tends to slow his gait somewhat and increase safety. Wheelchair Training Does the Pt Use a Wheelchair?: No Stairs #of Steps: 4 1 Step (curb) (QC): 3 4 Steps (QC): 3 12 Steps (QC): 88 Has difficulty clearing right toes to step up and difficulty with right foot clearing the step to step down. Balance Sitting Static: Normal Sitting Dynamic: Normal Standing Static: Fair Standing Dynamic: Fair Picking up an Object (QC): 88 Special Test Comments Dynamic standing balance training with obstacles to step over, around, step up a step with multiple tight turns with cues for attention to obstacles. Stepping up/over increased dynamic single leg balance. Treatment Functional gait and transfer training with focus on sequencing and safety. Balance training with high demand and work on balance as well as attention to obstacles. Assessment/Needs Post CVA with residual dominant (right) weakness. He presents with impaired right LE strength, right neglect slightly, impulsive nature and decreased functional balance and safety. He Will benefit from skilled therapy services to address these deficits to allow him to return home with continued skilled services to ultimately return to PLOF and work. Rehab Potential: Good PT Short Term Goals Short Term Goals Time Frame: Dec 09, 2019 Roll Left & Right: 5 Sit to lyin Lying to sitting on side of be: 5 Sit to stand: 5 Chair/jqh-kg-zqypo transfer: 5 Toilet transfer: 5 Car transfer: 4 Walk 10 feet: 4 Walk 50 feet with two turns: 4 Walk 150 feet: 4 Walking 10ft on uneven surface: 4 1 step (curb): 4 4 steps: 4 12 steps: 4 PT Lithograph Press Feeder Goals Lithograph Press Feeder Goals PT Half-Way Goals Time Frame: Dec 23, 2019 Roll Left & Right (QC): 6 Sit to Lying (QC): 6 Lying-Sitting on Side/Bed(QC): 6 Sit to Stand (QC): 6 Chair/Ojs-mv-Mmwgp Xfer(QC): 6 Toilet Transfer (QC): 6 Car Transfer (QC): 6 Does the Patient Walk: Yes Walk 10 feet (QC): 6 Walk 50ft with 2 Turns (QC): 6 Walk 150 ft (QC): 6 Walking 10ft on Uneven Surface: 6 1 Step (curb) (QC): 6 4 Steps (QC): 6 12 Steps (QC): 6 Picking up an Object (QC): 6 Does the Pt use WC or Scooter?: No PT Plan Problem List Problem List: Activity Tolerance, Functional Strength, Safety, Balance, Gait, Transfer, Bed Mobility Treatment/Plan Treatment Plan: Continue Plan of Care Treatment Plan: Bed Mobility, Education, Functional Activity Jamel, Functional Strength, Group Therapy, Gait, Safety, Therapeutic Exercise, Transfers Treatment Duration: Dec 23, 2019 Frequency: At least 5 of 7 days/Wk (IRF) Estimated Hrs Per Day: 1.5 hours per day Patient and/or Family Agrees t: Yes Safety Risks/Education Patient Education: Transfer Techniques, Safety Issues Teaching Recipient: Patient, Significant Other Teaching Methods: Discussion Response to Teaching: Reinforcement Needed Time/GCodes Time In: 800 Time Out: 900 Total Billed Treatment Time: 60 Total Billed Treatment visit EVM 15 GT 15 NM 30 ROMI MURPHY PT Dec 02, 2019 09:22
--- NOTE | 2019-12-02 09:30 | NUR ---
CM/SS ADMISSION Patient was admitted to ARU 12/01/19 for CVA, right hemiparesis. Other comorbidities are, in part, NIDDM and HTN. 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 His of 25 years, Kenzie Mcgovern, is a middle school sports coach at [employer]. Due to current Covid-19, she is out of school at this time per protocols. They have two sons, Milton Mcgovern age 23 and Ellis Mcgovern age 19 who still resides at home. Patient's stated goal is to return home and to strive for his highest level of functioning. Patient and spouse have both experienced situational emotions due to this unexpected event. Regarding caregiver availability, Kenzie is off for now. Her particular school network has not yet committed to being closed the remainder of the school semester. This planning will continually evolve both for patient level of functioning and their home situation. PCP: David Deluna MD DME: None, never needed. Patient currently training with FWW and cane. Bathing/bathroom items to be explored. Therapy staff to assess for new assistive device needs during patient stay on ARU relative to home performance and safety. INSURANCE: [employer] [facility] PHARMACY: [facility] CONTACTS: Kenzie Mcgovern, [address] [place] [address] Milton Mcgovern, Son, age 23 [address] [place] [address] Sincere Mcgovern, Son, age 19 [address] [place] [address] Patient and Kenzie indicated understanding of the purpose and process of the weekly Patient Care Conference .
--- NOTE | 2019-12-02 10:42 | NUR ---
I SPOKE WITH THE PT ON 11-30-2019 WHEN HE WAS ON THE 4TH FLOOR AND COMPLETED THE MED REC AFTER I SPOKE WITH HIM AND HIS . PER DISCHARGE NO MEDS WERE CHANGED, STOPPED AND NO NEW MEDS WERE STARTED, THEREFOR NO CHANGES WERE MADE.
--- NOTE | 2019-12-02 10:56 | Consultation-Cardiology ---
HPI-Cardiology Cardiology Consultation Date of Consultation 12/02/19 Date of Admission Time Seen by Provider: 10:50 Indication: CVA HPI Patient is a 49 y/o male with history of HTN, HLP, DM, Obesity. Presented to the ER with complaints of right side facial droop, right sided weakness and slurred speech. MRI done revealed CVA. Currently in IRF. Denies any chest pain, dyspnea or palpitations. Denies any previous cardiac history or workup. Reports speech has improved, continues to have slight right sided facial drooping and right sided weakness. 49-year-old gentleman with history of hypertension, hyperlipidemia, diabetes mellitus, presented with CVA, having right sided weakness. No previous history or complaint. Still having right sided weakness, maintained on aspirin, Home Medications & Allergies Allergies: Coded Allergies: sitagliptin (Verified Allergy, Unknown, Rash, 11/30/19) Home Medication List Reviewed: Yes PLK-Xugxyc-Wcthez Hx Patient Social History Marital Status: Employed/Student: employed ([employer]) Alcohol Use: Denies Use Recreational Drug Use: No Smoking Status: Never a Smoker Recent Foreign Travel: No Recent Infectious Disease Expo: No Recent Hopitalizations: No Physical Abuse Screen: No Sexual Abuse: No Past Medical History HTN, HLP, DM, Obesity. Family Medical History Significant Family History: No Pertinent Family Hx Family Medical Hx Noncontributory Review of Systems-General Review of Systems Constitutional: see HPI, malaise, weakness EENTM: hoarseness, mouth swelling Respiratory: no symptoms reported Cardiovascular: no symptoms reported Gastrointestinal: no symptoms reported Genitourinary: no symptoms reported Musculoskeletal: no symptoms reported Skin: no symptoms reported Psychiatric/Neurological: Anxiety, Depressed, Numbness, Paresthesia, Tremors, Weakness All Other Systems Reviewed Negative Unless Noted: Yes Reviewed Test Results Reviewed Test Results Lab Laboratory Tests 12/01/19 20:37: Glucometer 305H 12/02/19 05:26: Glucometer 267H 12/02/19 05:27: White Blood Count 13.7H, Red Blood Count 4.60, Hemoglobin 14.4, Hematocrit 43, Mean Corpuscular Volume 94, Mean Corpuscular Hemoglobin 31, Mean Corpuscular Hemoglobin Concent 33, Red Cell Distribution Width 13.9, Platelet Count 216, Mean Platelet Volume 10.8H, Neutrophils (%) (Auto) 74, Lymphocytes (%) (Auto) 14, Monocytes (%) (Auto) 11, Eosinophils (%) (Auto) 1, Basophils (%) (Auto) 0, Neutrophils # (Auto) 10.1H, Lymphocytes # (Auto) 2.0, Monocytes # (Auto) 1.5H, Eosinophils # (Auto) 0.2, Basophils # (Auto) 0.0, Sodium Level 137, Potassium Level 4.2, Chloride Level 104, Carbon Dioxide Level 21, Anion Gap 12, Blood Urea Nitrogen 24H, Creatinine 1.25, Estimat Glomerular Filtration Rate > 60, BUN/Creatinine Ratio 19, Glucose Level 283H, Calcium Level 9.4, Corrected Calcium 9.1, Total Bilirubin 0.7, Aspartate Amino Transf (AST/SGOT) 16, Alanine Aminotransferase (ALT/SGPT) 24, Alkaline Phosphatase 40, Total Protein 7.4, Albumin 4.4 12/02/19 10:43: Glucometer 274H ECG Impression ECG Initial ECG Rhythm: Normal Sinus Physical Exam Physical Exam Vital Signs Vital Signs - First Documented 12/01/19 16:40 Temp 36.5 Pulse 75 Resp 16 B/P (MAP) 133/73 Pulse Ox 94 O2 Delivery Room Air Capillary Refill : Less Than 3 Seconds Height, Weight, BMI Height: '" Weight: lbs. oz. kg; 40.43 BMI Method: General Appearance: No Apparent Distress, WD/WN, Anxious Eyes: Bilateral Eye Normal Inspection, Bilateral Eye PERRL HEENT: PERRL/EOMI, Normal ENT Inspection, Pharynx Normal Neck: Full Range of Motion, Normal Inspection, Non Tender, Supple, Carotid Bruit Respiratory: Chest Non Tender, Lungs Clear, Normal Breath Sounds, No Accessory Muscle Use, No Respiratory Distress Cardiovascular: Regular Rate, Rhythm, No Edema, No Gallop, No JVD, No Murmur, Normal Peripheral Pulses Gastrointestinal: Normal Bowel Sounds, No Organomegaly, No Pulsatile Mass, Non Tender, Soft Back: Normal Inspection, No CVA Tenderness, No Vertebral Tenderness Extremity: Normal Capillary Refill, Normal Inspection, Normal Range of Motion, Non Tender, No Calf Tenderness, No Pedal Edema Neurologic/Psychiatric: Alert, Oriented x3, Normal Mood/Affect, Facial Droop (right), Motor Weakness (right arm and leg 2/5) Skin: Normal Color, Warm/Dry Lymphatic: No Adenopathy A/P-Cardiology Admission Diagnosis Cryptogenic stroke HTN HLP DM Assessment/Plan Cryptogenic stroke with right sided facial drooping, slurred speech and right sided weakness. MRI done 11/30/2019 revealed small acute to subacute ischemic infarct lateral aspect left thalamus with probable involvement posterior limb left internal capsule. Carotid duplex showed no evidence of stenosis. I will place patient on telemetry, evaluate 2D echo, consider loop implantation for further monitoring for underlying arrhythmia. HTN- continue to monitor blood pressure. HLP- maintained on statin as outpatient DM- management per PCP Obesity Multiple risk factors for underling LAURA- consider sleep study as outpatient. Thank you for allowing us to participate in the management of Mr. Mcgovern. This is Lore Sultana PA-C, as a scribe for Dr. Espino. Patient was seen and evaluated with Lore, I interviewed the patient and perform physical examination discussed management plan, patient has cryptogenic stroke, right-sided weakness, no previous cardiac history, no previous cardiac symptoms, I will continue on current medication monitor heart rate and blood pressure, placed him on telemetry, planning to proceed with loop recorder implantation, add Plavix, monitor I made few modifications to the note using Italic font Clinical Quality Measures DVT/VTE Risk/Contraindication: Risk Factor Score Per Nursin RFS Level Per Nursing on Admit: 4+=Very High LORE GROVE Dec 02, 2019 10:56 am ANMOL ESPINO MD Dec 02, 2019 1:03 pm
--- NOTE | 2019-12-02 12:06 | Occupational Ther Daily Note ---
OT Current Status-Daily Note Subjective Pt laying in bed with HOB elevated, present. Agreeable to OT tx this AM, he did not report any pain. ADL-Treatment Therapy Code Descriptions/Definitions Functional [place] Measure: 0=Not Assessed/NA 4=Minimal Assistance 1=Total Assistance 5=Supervision or Setup 2=Maximal Assistance 6=Modified [place] 3=Moderate Assistance 7=Complete IndependenceSCALE: Activities may be completed with or without assistive devices. 2-Rzrxvqcakq-hpxfnus completes the activity by him/herself with no assistance from a helper. 5-Set-up or Clean-up Assistance-helper sets up or cleans up; patient completes activity. [place] assists only prior to or following the activity. 4-Supervision or Touching Assistance-helper provides verbal cues and/or touching/steadying and/or contact guard assistance as patient completes activity. Assistance may be provided throughout the activity or intermittently. 3-Partial/Moderate Assistance-helper does LESS THAN HALF the effort. [place] lifts, holds or supports trunk or limbs, but provides less than half the effort. 2-Substantial/Maximal Assistance-helper does MORE THAN HALF the effort. [place] lifts or holds trunk or limbs and provides more than half the effort. 1-Lmhtwiyyu-pokzue does ALL the effort. Patient does none of the effort to complete the activity. Or, the assistance of 2 or more helpers is required for the patient to complete the activity. If activity was not attempted, code reason: 7-Patient Refused. 9-Not Applicable-not attempted and the patient did not perform the activity before the current illness, exacerbation or injury. 10-Not Attempted due to Environmental Limitations-(lack of equipment, weather restraints, etc.). 88-Not Attempted due to Medical Conditions or Safety Concerns. Other Treatment Pt sitting with HOB elevated, agreeable to OT tx. Pt participated in functional activity in order to increase RUE coordination/strength. Pegboard set up on tray table, pt unsuccessful with placing peg into pegboard but was able to remove x3 pegs from pegboard using RUE with increased time. Staff came in stating pt nee ded heart ultrasound. OT assisted pt with rolling to his side for procedure. Pt able to roll to his left side, with cues for safety/positioning. Pt's right hand resting on his hip but slipped behind him, OT repositioned pt's hand and indicated to him that it has slipped. Post OT tx, pt laying in bed, staff and present, all needs met. Education OT Patient Education: Correct positioning, Energy conservation, Modified ADL techniques, Progress toward Goal/Update tx plan, Purpose of tx/functional activities Teaching Recipient: Patient Teaching Methods: Discussion Response to Teaching: Verbalize Understanding OT Fpc Goals Fpc Goals Time Frame: Dec 17, 2019 Eating (QC): 6 Oral Hygiene (QC): 6 Toileting Hygiene (QC): 6 Shower/Bathe Self (QC): 6 Upper Body Dressing (QC): 6 Lower Body Dressing (QC): 6 On/Off Footwear (QC): 6 Additional Goals: 1-Demonstrate ADL Tasks, 2-Verbalize Understanding, 3- ImproveStrength/Jamel 1=Demonstrate adherence to instructed precautions during ADL tasks. 2=Patient will verbalize/demonstrate understanding of assistive devices/modifications for ADL. 3=Patient will improve strength/tolerance for activity to enable patient to perform ADL's. OT Education/Plan Problem List/Assessment Assessment: Decreased Activ Tolerance, Decreased UE Strength, Impaired Coordination, Impaired I ADL's, Impaired Self-Care Skills, Restricted Funct UE ROM Discharge Recommendations Plan/Recommendations: Continue POC Treatment Plan/Plan of Care Treatment,Training & Education: Yes Patient would benefit from OT for education, treatment and training to promote independence in ADL's, mobility, safety and/or upper extremity function for ADL's. Plan of Care: ADL Retraining, Functional Mobility, Group Exercise/Act as Ind, UE Funct Exercise/Act Treatment Duration: Dec 17, 2019 Frequency: At least 5 of 7 days/Wk (IRF) Estimated Hrs Per Day: .25 hour per day Rehab Potential: Good Time/GCodes Start Time: 11:00 Stop Time: 11:15 Total Time Billed (hr/min): 15 Billed Treatment Time 1, FA MIGNON SANDERSON OT Dec 02, 2019 12:06
--- NOTE | 2019-12-02 12:51 | PM&R Progress Note ---
Subjective HPI/CC On Admission Date Seen by Provider: Dec 02, 2019 Time Seen by Provider: 09:00 Subjective/Events-last exam Patient doing very well Stool softeners will be given since unknown last bowel movement likely first of the week Talk to him about counseling and he is willing to talk about situational de pression since catastrophic stroke Blood pressure good 126/71, heart rate okay Cardiology evaluation is appreciated Restarting metformin since his creatinine went from 1.3-1.2 He seems to be very distracted easily cognitively which is new per Has a family history of strokelike conditions Speech therapy will work on dysphasia Denies any pain Conferred with RN Reviewed therapy notes Check meds and labs Blood sugar checks monitored Review of Systems Neurological: Weakness, Numbness, Incoordination Objective Exam Vital Signs Vital Signs Date Time Temp Pulse Resp B/P (MAP) Pulse Ox O2 Delivery O2 Flow Rate FiO2 12/02/19 19:00 71 12/02/19 18:00 36.7 18 126/71 (89) 94 Room Air Capillary Refill : Less Than 3 Seconds General Appearance: No Apparent Distress, WD/WN, Anxious HEENT: PERRL/EOMI, Normal ENT Inspection, Pharynx Normal Neck: Full Range of Motion, Normal Inspection, Non Tender, Supple, Carotid Bruit Respiratory: Chest Non Tender, Lungs Clear, Normal Breath Sounds, No Accessory Muscle Use, No Respiratory Distress Cardiovascular: Regular Rate, Rhythm, No Edema, No Gallop, No JVD, No Murmur, Normal Peripheral Pulses Gastrointestinal: Normal Bowel Sounds, No Organomegaly, No Pulsatile Mass, Non Tender, Soft Back: Normal Inspection, No CVA Tenderness, No Vertebral Tenderness Extremity: Normal Capillary Refill, Normal Inspection, Normal Range of Motion, Non Tender, No Calf Tenderness, No Pedal Edema Neurologic/Psychiatric: Alert, Oriented x3, Normal Mood/Affect, Aphasia (partial), Facial Droop (right), Motor Weakness (right arm and leg 2/5) Skin: Normal Color, Warm/Dry Lymphatic: No Adenopathy Results/Procedures Lab Laboratory Tests 12/02/19 05:27 Patient resulted labs reviewed. FIM Transfers Therapy Code Descriptions/Definitions Functional [place] Measure: 0=Not Assessed/NA 4=Minimal Assistance 1=Total Assistance 5=Supervision or Setup 2=Maximal Assistance 6=Modified [place] 3=Moderate Assistance 7=Complete IndependenceSCALE: Activities may be completed with or without assistive devices. 7-Nzyssqvnpe-hmponlv completes the activity by him/herself with no assistance from a helper. 5-Set-up or Clean-up Assistance-helper sets up or cleans up; patient completes activity. [place] assists only prior to or following the activity. 4-Supervision or Touching Assistance-helper provides verbal cues and/or touching/steadying and/or contact guard assistance as patient completes activity. Assistance may be provided throughout the activity or intermittently. 3-Partial/Moderate Assistance-helper does LESS THAN HALF the effort. [place] lift s, holds or supports trunk or limbs, but provides less than half the effort. 2-Substantial/Maximal Assistance-helper does MORE THAN HALF the effort. [place] lifts or holds trunk or limbs and provides more than half the effort. 1-Oijwwvpwm-gehvjd does ALL the effort. Patient does none of the effort to complete the activity. Or, the assistance of 2 or more helpers is required for the patient to complete the activity. If activity was not attempted, code reason: 7-Patient Refused. 9-Not Applicable-not attempted and the patient did not perform the activity before the current illness, exacerbation or injury. 10-Not Attempted due to Environmental Limitations-(lack of equipment, weather restraints, etc.). 88-Not Attempted due to Medical Conditions or Safety Concerns. Roll Left to Right (QC): 4 Sit to Lying (QC): 4 Sit to Stand (QC): 3 (CGA with occas assist to steady; pt tends to move quickly and can lose his balance. ) Chair/Wwt-vm-Nkgsh Xfer(QC): 3 Car Transfer (QC): 3 Gait Training Does the Patient Walk?: Yes Walk 10 feet (QC): 3 Walk 50 ft with 2 Turns(QC): 3 Walk 150 ft (QC): 3 Walking 10ft/uneven surface-QC: 3 Wheelchair Training Does the Pt Use a Wheelchair?: No Stair Training #of Steps: 4 1 Step (curb) (QC): 3 4 Steps (QC): 3 12 Steps (QC): 88 Balance Picking up an Object (QC): 88 ADL-Treatment Eating (QC): 5 (Per pt report) Oral Hygiene (QC): 5 (set up at tray table. Pt able to place red hydraulic operator onto toothbrush, and brush teeth using RUE. ) Shower/Bathe Self (QC): 4 (OT cued pt to sit down during shower for safety. Pt able to wash all parts, with CGA during standing at [facility]) Upper Body Dressing (QC): 3 (Min A. Pt required increased time with task due to decreased coordination in RUE. He required slight assistance pulling right side of shirt down) Lower Body Dressing (QC): 3 (Min A. Pt required increased time with task due to decreased coordination in RUE. He was able to don pants requiring slight assist pulling them up all the way on his right side.) On/Off Footwear (QC): 2 (Pt able to doff socks. he attempted to don socks unsuccessfully due to decreased coordination in R hand. OT donned socks for pt. ) Toileting Hygiene (QC): 4 (CGA during clothing management and hygiene) Assessment/Plan Assessment and Plan Assess & Plan/Chief Complaint Assessment: CVA with right sided weakness Right facial droop HTN DM insulin dependence HGA1C 8.4 HLP HTG CRI likely DM nephropathy Situational depression Plan: IRF protocol Cardiology consultation for risk stratification ASA High dose statin BM regimen Monitor BP Hold metformin due to elevated creatinine for time being but restart it today Psych evaluation ordered (1) Hemiparesis affecting dominant side as late effect of cerebrovascular accident (2) CVA (cerebral vascular accident) (3) Facial paralysis on right side Status: Acute (4) HTN (hypertension) Status: Acute (5) IDDM (insulin dependent diabetes mellitus) Status: Acute (6) Slurred speech Status: Acute TOYA OLGUIN DO Dec 02, 2019 12:51
--- NOTE | 2019-12-02 12:52 | Individualized Plan of Care ---
Individualized Plan of Care Rehab Nursing IPOC Order Admission Date Dec 01, 2019 at 17:02 Current Orders Orders Admission Order(Inpt,Obs,Sdc) (12/01/19 16:06) Vital Signs: Per Unit Policy ( 08,16,00 (12/01/19 16:06) Carbon Rod Inserter-Inpt Rehab Con (12/01/19 16:06) Rehab Nursing Orders-Ipoc (12/01/19 16:06) Physical Therapy Rehab Orders (12/01/19 16:06) Occupational Therapy Rehab Ord (12/01/19 16:06) Speech Therapy Rehab Orders (12/01/19 16:06) Cbc With Automated Diff (12/02/19 06:00) Comprehensive Metabolic Panel (12/02/19 06:00) Intake & Output 06,14,22 (12/01/19 16:06) Precautions (Aru) (12/01/19 16:06) Rehab-Intensity Of Therapy (12/01/19 16:06) Acetaminophen Tablet (Tylenol Tablet) (12/01/19 16:15) Alprazolam Tablet (Xanax Tablet) (12/01/19 16:15) Calcium Carbonate Chew Tablet (Antacid C (12/01/19 16:15) Diphenhydramine Tablet (Benadryl Tablet) (12/01/19 16:15) Docusate Sodium Capsule (Colace Capsule) (12/01/19 21:00) Docusate Sodium Capsule (Colace Capsule) (12/01/19 16:15) Bisacodyl Suppository (Dulcolax Supposit (12/01/19 16:15) Lactulose Oral Solution (Enulose Oral So (12/01/19 16:15) Na Phos/Na Biphos Enema (Fleet Enema Devin (12/01/19 16:15) Guaifenesin/Codeine Syrup (Robitussin Ac (12/01/19 16:15) Loperamide Tablet (Imodium Tablet) (12/01/19 16:15) Enoxaparin Injection (Lovenox Injection) (12/01/19 16:15) Melatonin Tablet (Melatonin Tablet) (12/01/19 16:15) Polyethylene Glycol Powder Pkt (Miralax (12/01/19 21:00) Ondansetron Oral Dissolve Tab (Zofran (12/01/19 16:15) Senna S Tablet (Senokot S Tablet) (12/01/19 21:00) Code/Resuscitation (12/01/19 16:06) Initiate Admission Nursing Pro .admission (12/01/19 16:06) Admission Arrival Bed Request (12/01/19 16:12) General/Regular (12/01/19 Dinner) Atorvastatin Tablet (Lipitor Tablet) (12/01/19 21:00) Aspirin Enteric Coated Tablet (Ecotrin T (12/02/19 09:00) Amlodipine Tablet (Norvasc Tablet) (12/02/19 09:00) Fenofibrate,Micronized Capsule (Lofibra (12/01/19 21:00) Insulin Aspart (Novolog) (Novolog (Charg (12/02/19 07:00) Insulin Determir (Per Unit) (Levemir (Pe (12/01/19 21:00) Cho 90g/M 1snack (25-2900 Jovi) (12/02/19 Breakfast) Lisinopril Tablet (Zestril Tablet) (12/02/19 09:00) Accucheck Achs ACHS (12/01/19 17:12) Enoxaparin Injection (Lovenox Injection) (12/01/19 18:00) Ambulate 08,12,20 (12/01/19 17:52) Sequential Compression Device Q4H (12/01/19 17:52) Dvt/Vte Risk - Notifiy Physici Q4H (12/01/19 17:52) Hydrocodone/Apap 5/325 Tablet (Lortab 5 (12/01/19 21:00) Zolpidem Tablet (Ambien Tablet) (12/01/19 21:00) Telemetry (12/02/19 10:46) Telemetry Nursing Assessment ( (12/02/19 10:46) Echo W Doppler/Color Flow (12/02/19 10:46) Metformin Tablet (Glucophage Tablet) (12/03/19 07:00) Patient Visit (12/02/19 ) Speech Sound Lang Comp (12/02/19 ) Patient Visit (12/02/19 ) Pt Eval Moderate Complexity (12/02/19 ) Gait Training, Ea 15 Min (12/02/19 ) Ex Neuromuscular, Ea 15 Min (12/02/19 ) Functional Activities, Ea 15 (12/02/19 ) Exercise Therap, Ea 15 Min (12/02/19 ) Incentive Spirometry Initial (12/02/19 19:03) Incentive Spirometry (Nursing) Q2H (12/02/19 19:03) Behavorial Health Consult (12/02/19 20:46) Insulin Aspart (Novolog) (Novolog (Charg (12/03/19 07:00) Insulin Determir (Per Unit) (Levemir (Pe (12/02/19 21:00) Rehab Nursing Orders: Ongoing Assess. of Cognitive Status, Ongoing Assess. of Function Status, Bladder Management, Bladder Scan, Bladder Training, Bowel Management, Bowel Training, Disease Management & Educaiton, DVT Prophylaxis, Fall Prevention, Fluid/Electrolyte/Nutrition Mgmt, Infection Prevention, Medication Management & Education, Management of Risks & Complications, Management of Skin Intergrity, Nutrition Management, Pain Management, Patient/Family Support, Safety Management Intensity of Therapy to be met Patient to be seen: Min.3h per day/5 of 7d PT IPOC Problem List: Activity Tolerance, Functional Strength, Safety, Balance, Gait, Transfer, Bed Mobility Treatment Plan: Continue Plan of Care Bed Mobility, Education, Functional Activity Jamel, Functional Strength, Group Therapy, Gait, Safety, Therapeutic Exercise, Transfers Treatment Duration: Dec 23, 2019 Frequency: At least 5 of 7 days/Wk (IRF) Estimated Hrs Per Day: 1.5 hours per day OT IPOC Problems: Decreased Activ Tolerance, Decreased UE Strength, Impaired Coordinat ion, Impaired I ADL's, Impaired Self-Care Skills, Restricted Funct UE ROM OT Treatment, Training and Edu: Yes Plan of Care: ADL Retraining, Functional Mobility, Group Exercise/Act as Ind, UE Funct Exercise/Act Treatment Duration: Dec 17, 2019 Frequency: At least 5 of 7 days/Wk (IRF) Estimated Hrs Per Day: .[address] IPOC Speech Therapy Treatment Plan: Continue Plan of Care Treatment Duration: Dec 02, 2019 Frequency: Modified Program (IRF) Estimated Hrs Per Day: .5 hour per day Carbon Rod Inserter/Case Mgmt Carbon Rod Inserter/Case Managemen: Discharge Planning Dietitian/C.O.D. Biller Dietitian/C.O.D. Biller to monitor nutritional status and make changes and/or recommendations as needed and work with speech pathology on dietary upgrades as the occur. Physician IPOC Medical Issues being managed closely and that require the 24 hour availability of a physician: Recent CVA catastrophic with insulin dependence with labile sugar levels along with the need of cardiology management to prevent future CVA Medical Issues: Bowel/Bladder Function, DVT Prophylaxis, Falls Precautions, Fluid/Electrolyte/Nutrition Balance, Infection Protection, Pain Management, Swallowing Precautions Brief Synthesis of Preadmission Screen, Post-Admission Evaluation, and Therapy Evaluations: PT OT ST will focus on increasing independence with ADL's and strengthening right sided weakness Medical Prognosis: Good Anticipated Length of Stay: 14 days TOYA OLGUIN DO Dec 02, 2019 12:51
--- NOTE | 2019-12-02 13:33 | ST Cognitive Linguistic Eval ---
Speech Evaluation-General Medical Diagnosis CVA Onset Date: Dec 01, 2019 Therapy Diagnosis Therapy Diagnosis: Cognitive-communication Referral Referring Physician: Dr. Mclean Medical History Pertinent Medical History: DM, HTN Reviewed History: Yes Social History Current Living Status: Spouse Speech PLF-Current Status Prior Level of Function Patient lived at home with his . Patient was employed with [employer] and led an active life. Subjective Patient was cooperative with the cognitive assessment, however patient does appear to be depressed with a flat affect. Patient's was present for the entire session. Language Eval: Auditory Comprehends Simple Yes/No Ques: Functional Indent/Objects Multiple [place]: Functional Ident/Pics in Multiple [place]: Functional Follows 1-Step Commands: Functional Follows Complex Directions: Functional Follows General Conversations: Mild Language Eval: Verbal Language Completes Spontaneous Greeting: Functional Produces Auto, Serial Info: Functional Imitates Simple Words/Phrases: Functional Word Finding: Mild Requests Basic Needs: Functional States Basic Personal Info: Functional Expresses Complex Ideas: Mild Objective Cognitive Domain Attention: WNL Memory: Mild Problem Solving: Functional Executive Functions: Mild Visuospatial Skills: WNL Composite Severity Rating: WNL Clock Drawing Severity Rating: Mild Objective Formal/Standardized Tests [facility] Mental Status ([facility]) Results 24/30, within the Mild Neurocognitive Disorder range of function Oral Motor/Speech Production Patient exhibits some right sided drooping of the face. Speech is 80% clear with a decreased volume. Impression Patient is a 49 year old male who was admitted to the ARU s/p CVA. Patient was given the SLUMS at bedside with a score of 24/30 obtained. This score falls in the MNCD range of function. This score qualifies patient for ST therapy. Therapy will focus on his oral motor function and cognitive deficits. Speech Patient Assess Expression of Ideas/Wants: Exhibits (3) Understanding Verbal Content: Usually Understands (3) Brief Interview-Mental Status: Yes Repetition of Three Words: Three (3) Temporal Orientation: Year: Correct (3) Temporal Orientation: Month: Accurate within 5 days(2) Temporal Orientation: Day: Incorrect or No Answer(0) Recall : Wear to say "Sock": Yes,after cueing (1) Recall : Color: Yes, after cueing (1) Recall : Bed: No, could not recall (0) Memory/Recall Ability: Current season, That he or she is in a hsp/hsp unit Speech Short Term Goals Short Term Goals Short Term Goals 1) Patient will complete memory tasks related to his daily needs with 90% or greater. 2) Patient will complete safety awareness tasks related to his daily needs with 90% or greater. 3) Patient will complete problem solving tasks related to his daily needs with 90% or greater. 4) Patient will complete oral motor exercises with 90% or greater. Speech Skilled Nursing Goals Digital Developer Goals Patient will improve cognitive and speech production to prior level at 90% or greater. Speech-Plan Patient/Family Goals Patient/Family Goals: The patient plans on returning home with his upon rehab discharge. Treatment Plan Speech Therapy Treatment Plan: Continue Plan of Care Frequency: 5 times per week Estimated Hrs Per Day: .5 hour per day Rehab Potential: Good Barriers to Learning: Patient has after affects with cognitive and speech related to recent CVA Pt/Family Agrees to Plan: Yes Safety Risks/Education Teaching Recipient: Patient, Significant Other Teaching Methods: Discussion Response to Teaching: Verbalize Understanding Education Topics Provided: Safety within his room, communication of wants/needs Time Speech Therapy Time In: 11:30 Speech Therapy Time Out: 12:00 Total Billed Time: 30 Billed Treatment Time 1, SPSNDCOMLILIANA Henson Dec 02, 2019 13:33
--- NOTE | 2019-12-02 13:50 | NUR ---
RD ASSESSMENT PMHx: PT INTERACTION: Pt was awake and pleasant during nutrition assessment. Note pt's present at bedside. Pt states current appetite is fine and has been for some time. Note avg PO intake of 100% x2meal, per chart review. states pt follows a low-CHO diet at home. Note pt is diabetic, and when asked about how many CHOs pt consumes in a day, states "20-30". This RD advised that 20-30 g CHO per day is too few and could lead to negative consequences in health. Pt states no recent issues with n/v/c/d at this time and that pt's last BM was 11/28. Note pt currently on bowel regimen of colace BID; senna BID; and miralax BID, per chart review. Pt states no recent wt changes. Note unable to determine recent wt hx, per chart review. states pt's current DM management as "his blood sugars always run high (>200)." Note recent HbA1c of 8.6% taken on 11/30/19 per chart review. ABNORMAL NUTRITION-RELATED LAB VALUES LOW: HIGH: BUN 24; glu 283; HbA1c 8.4 (11/30/19) Est. kcal needs: 6323-6691 kcal | 15-18 kcal/kg Est. Pro needs: 114-143 g Pro | 0.8-1.0 g Pro/kg PES STATEMENT: Food- and nutrition-related knowledge deficit (NB-1.1) related to prior exposure to incorrect information as evidenced by verbalizes incorrect information INTERVENTION: Continue with current diet order of CHO 90g/m 1snack diet. Pt would benefit from more restrictive CHO diet, as current blood glucose levels are elevated (274 @1043). Would recommend either 60 or 75 g/m diet. Will offer dietary education on CHO counting on 12/02. Will continue to follow and reassess as pt needs, intake, and status change. MONITOR/EVALUATE: PO Intake; Plan of Care; Hydration Status; Weight Status; Lab Values Sandeep Martell, MS, RD, LD
--- NOTE | 2019-12-02 13:58 | Physical Therapy Daily Note ---
PT Daily Note-Current Subjective Pt agreeable to PT but acknowledges that he is tired this afternoon. Transfers SCALE: Activities may be completed with or without assistive devices. 9-Jkjfeolnxs-dfsosau completes the activity by him/herself with no assistance from a helper. 5-Set-up or Clean-up Assistance-helper sets up or cleans up; patient completes activity. [place] assists only prior to or following the activity. 4-Supervision or Touching Assistance-helper provides verbal cues and/or touching/steadying and/or contact guard assistance as patient completes act ivity. Assistance may be provided throughout the activity or intermittently. 3-Partial/Moderate Assistance-helper does LESS THAN HALF the effort. [place] lifts, holds or supports trunk or limbs, but provides less than half the effort. 2-Substantial/Maximal Assistance-helper does MORE THAN HALF the effort. [place] lifts or holds trunk or limbs and provides more than half the effort. 5-Ztktudybi-omecyn does ALL the effort. Patient does none of the effort to complete the activity. Or, the assistance of 2 or more helpers is required for the patient to complete the activity. If activity was not attempted, code reason: 7-Patient Refused. 9-Not Applicable-not attempted and the patient did not perform the activity before the current illness, exacerbation or injury. 10-Not Attempted due to Environmental Limitations-(lack of equipment, weather restraints, etc.). 88-Not Attempted due to Medical Conditions or Safety Concerns. Functional bed mobility training and sit to stand transfers. Cues for safety and sequencing. Cues to slow down and take extra caution. Rolling, scooting and sit to from supine transfers. Sit to stand multiple reps from multiple surfaces. Gait Training Gait Assistive Device: Cane Single Point Gait training with SPC with CGA with skilled cues for foot clearance right and step length. Cues for safety awareness; straight path with turn. Exercises NuStep Minutes: 8 (To work on right hip/knee control with strenght as well as positioning on the nu step; assist to keep right hand in place. ) Assessment Pt very tired this afternoon with groggy eyes. Participates well with good effort. PT Short Term Goals Short Term Goals Time Frame: Dec 09, 2019 Roll Left & Right: 5 Sit to lyin Lying to sitting on side of be: 5 Sit to stand: 5 Chair/yai-ic-eogfn transfer: 5 Toilet transfer: 5 Car transfer: 4 Walk 10 feet: 4 Walk 50 feet with two turns: 4 Walk 150 feet: 4 Walking 10ft on uneven surface: 4 1 step (curb): 4 4 steps: 4 12 steps: 4 PT Care Home Goals Assistant Director Of Security Goals PT Care Home Goals Time Frame: Dec 23, 2019 Roll Left & Right (QC): 6 Sit to Lying (QC): 6 Lying-Sitting on Side/Bed(QC): 6 Sit to Stand (QC): 6 Chair/Yjz-wx-Wekpd Xfer(QC): 6 Toilet Transfer (QC): 6 Car Transfer (QC): 6 Does the Patient Walk: Yes Walk 10 feet (QC): 6 Walk 50ft with 2 Turns (QC): 6 Walk 150 ft (QC): 6 Walking 10ft on Uneven Surface: 6 1 Step (curb) (QC): 6 4 Steps (QC): 6 12 Steps (QC): 6 Picking up an Object (QC): 6 Does the Pt use WC or Scooter?: No PT Plan Problem List Problem List: Activity Tolerance, Functional Strength, Safety, Balance, Gait, Transfer, Bed Mobility Treatment/Plan Treatment Plan: Continue Plan of Care Treatment Plan: Bed Mobility, Education, Functional Activity Jamel, Functional Strength, Group Therapy, Gait, Safety, Therapeutic Exercise, Transfers Treatment Duration: Dec 23, 2019 Frequency: At least 5 of 7 days/Wk (IRF) Estimated Hrs Per Day: 1.5 hours per day Patient and/or Family Agrees t: Yes Safety Risks/Education Patient Education: Safety Issues Teaching Recipient: Patient, Significant Other Teaching Methods: Demonstration, Discussion Response to Teaching: Reinforcement Needed Time/GCodes Time In: 1250 Time Out: 1313 Total Billed Treatment Time: 23 Total Billed Treatment visit EX 8 FA 15 ROMI MURPHY PT Dec 02, 2019 13:58
[2019-12-02 16:00] VITALS: BP 137/73
[2019-12-02 18:00] VITALS: BP 126/71
[2019-12-02] MEDS: FENOFIBRATE 134 MG (LOFIBRA) CAPSULE PO SCH (20:12)
[2019-12-03 05:02] VITALS: BP 133/78
[2019-12-03] MEDS: ENOXAPARIN 40 MG/0.4 ML (LOVENOX) SYR SC SCH ×2 (06:15→18:03)
[2019-12-03] MEDS: metFORMIN 500 MG (GLUCOPHAGE) TAB PO SCH (06:15)
[2019-12-03] MEDS: inSUlin ASPART (NovoLOG) 1 UNIT/0.01 ML (CHARGE PER UNIT) SC SCH ×3 (06:16→17:06)
[2019-12-03 08:00] VITALS: BP 130/71
--- NOTE | 2019-12-03 08:00 | NUR ---
PATIENT ADMITS TO HAVING A LITTLE TROUBLE SWALLOWING SOLID GOOD. SPEECH THERAPIST NOTIFIED AND CHANGED TO DYSPHAGIA 2 DIET. CAN LIFT RIGHT ARM UP, BUT NO ROLLER LEVELER. STATES RIGHT LEG ONLY SLIGHTLY WEAK. DENIES ANY DIFFICULTY IN SPEECH. PATIENT ADMITS TO RIGHT SIDE OF FACE FEELING "".
[2019-12-03] MEDS: ASPIRIN E.C. 81 MG (ECOTRIN) TAB PO SCH (09:13)
[2019-12-03] MEDS: lisINopril 40 MG (PRINIVIL) TABLET PO SCH (09:13)
[2019-12-03] MEDS: amLODIPine 5 MG (NORVASC) TAB PO SCH (09:13)
[2019-12-03] MEDS: SENNA W/DOCUSATE (SENOKOT S) TABLET PO SCH ×2 (09:15→19:36)
[2019-12-03] MEDS: polyethylene glycoL POWDER 17 GM (MIRALAX) PACK PO SCH ×2 (09:15→19:36)
[2019-12-03] MEDS: DOCUSATE SODIUM 100 MG (COLACE) CAP PO SCH ×2 (09:15→19:36)
--- NOTE | 2019-12-03 09:15 | Occupational Ther Daily Note ---
OT Current Status-Daily Note Subjective Pt laying in bed at start of session, agreeable to OT tx. He did not verbalize any pain. ADL-Treatment Therapy Code Descriptions/Definitions Functional [place] Measure: 0=Not Assessed/NA 4=Minimal Assistance 1=Total Assistance 5=Supervision or Setup 2=Maximal Assistance 6=Modified [place] 3=Moderate Assistance 7=Complete IndependenceSCALE: Activities may be completed with or without assistive devices. 6-Jlqemrgcop-ilnuefq completes the activity by him/herself with no assistance from a helper. 5-Set-up or Clean-up Assistance-helper sets up or cleans up; patient completes activity. [place] assists only prior to or following the activity. 4-Supervision or Touching Assistance-helper provides verbal cues and/or touching/steadying and/or contact guard assistance as patient completes activity. Assistance may be provided throughout the activity or intermittently. 3-Partial/Moderate Assistance-helper does LESS THAN HALF the effort. [place] l ifts, holds or supports trunk or limbs, but provides less than half the effort. 2-Substantial/Maximal Assistance-helper does MORE THAN HALF the effort. [place] lifts or holds trunk or limbs and provides more than half the effort. 2-Awcpfdmqm-grtiul does ALL the effort. Patient does none of the effort to complete the activity. Or, the assistance of 2 or more helpers is required for t he patient to complete the activity. If activity was not attempted, code reason: 7-Patient Refused. 9-Not Applicable-not attempted and the patient did not perform the activity before the current illness, exacerbation or injury. 10-Not Attempted due to Environmental Limitations-(lack of equipment, weather restraints, etc.). 88-Not Attempted due to Medical Conditions or Safety Concerns. Upper Body Dressing (QC): 4 (SBA, with cues for safety as OT managed telemetry lines. Pt required increased time with task. ) Lower Body Dressing (QC): 4 (SBA, pt able to doff/don pants with increased time.) On/Off Footwear: 3 (Pt able to don socks with increased time, he primarily used his left hand for task but he hooked sock onto his right thumb in order to get sock over toes. He then was able to slip his shoes on but required assist with tying.) Other Treatment Pt completed dressing in his room, he then performed functional mobility with SPC, SBA to therapy gym. On way out of pt's room, he ran into door frame with his right arm. OT tx focus on neuromuscular re-education to increase functional use of RUE. Pt completed x10 reps, 2 sets each of towel slide forward, scaption, and horizontal abduction. He completed x5 reps, 2 sets each of cook italian style food squeezed on yellow cook italian style food sponge. He required cues not to hold his breath and cues to take rest breaks between each task. Pt's stated she was interested in elastic shoe laces, OT provided with laces and instruction for use. Pt and verbalized understanding, OT stated she would follow up in later session on the laces. Pt then returned to his room. Post OT session, pt seated in recliner, call light in reach and all needs met. Education OT Patient Education: Correct positioning, Energy conservation, Exercise program, Modified ADL techniques, Progress toward Goal/Update tx plan, Purpose of tx/functional activities, Safety issues Teaching Recipient: Patient Teaching Methods: Discussion Response to Teaching: Verbalize Understanding OT Usp Goals Skin Diving Teacher Goals Time Frame: Dec 17, 2019 Eating (QC): 6 Oral Hygiene (QC): 6 Toileting Hygiene (QC): 6 Shower/Bathe Self (QC): 6 Upper Body Dressing (QC): 6 Lower Body Dressing (QC): 6 On/Off Footwear (QC): 6 Additional Goals: 1-Demonstrate ADL Tasks, 2-Verbalize Understanding, 3- ImproveStrength/Jamel 1=Demonstrate adherence to instructed precautions during ADL tasks. 2=Patient will verbalize/demonstrate understanding of assistive devices/modifications for ADL. 3=Patient will improve strength/tolerance for activity to enable patient to perform ADL's. OT Education/Plan Problem List/Assessment Assessment: Decreased Activ Tolerance, Decreased Safety Aware, Decreased UE Strength, Impaired I ADL's, Impaired Self-Care Skills, Restricted Funct UE ROM Discharge Recommendations Plan/Recommendations: Continue POC Treatment Plan/Plan of Care Patient would benefit from OT for education, treatment and training to promote independence in ADL's, mobility, safety and/or upper extremity function for ADL's. Plan of Care: ADL Retraining, Functional Mobility, Group Exercise/Act as Ind, UE Funct Exercise/Act Treatment Duration: Dec 17, 2019 Frequency: At least 5 of 7 days/Wk (IRF) Estimated Hrs Per Day: .25 hour per day Rehab Potential: Good Time/GCodes Start Time: 08:00 Stop Time: 09:00 Total Time Billed (hr/min): 60 Billed Treatment Time 1, ADL (15'), NM 3 (45') MIGNON SANDERSON OT Dec 03, 2019 09:15
--- NOTE | 2019-12-03 10:30 | NUR ---
BEHAVIORAL HEALTH NOTIFIED OF CONSULT.
--- NOTE | 2019-12-03 11:25 | PM&R Progress Note ---
Subjective HPI/CC On Admission Date Seen by Provider: Dec 03, 2019 Time Seen by Provider: 10:30 Subjective/Events-last exam Patient had a pretty good night Behavioral health evaluation was completed and I did update her on the situation and she evaluated him and updated me that he saw his youngest son last night which helped tremendously and now he feels like he is back on track and does not feel the need for any type of antidepressants. Regular diet was causing some problems then changed to a dysphagia 2 but then changed back to regular diet he will be selective and be careful in choosing foods Right facial droopiness noted Putting on bed alarms at night since he seems to forget he cannot just jump out of bed and go to the bathroom stays with him during the day and takes detailed notes Loop recorder was placed by Dr. Espino and discontinue telemetry since loop recorder is in place since cryptogenic stroke unsure of source still at this point Overall feels like he is doing very well. Speech therapy will work on dysphasia Denies any pain Conferred with RN Reviewed therapy notes Check meds and labs Blood sugar checks monitored Review of Systems General: Fatigue Neurological: Weakness, Numbness, Incoordination Objective Exam Vital Signs Vital Signs Date Time Temp Pulse Resp B/P (MAP) Pulse Ox O2 Delivery O2 Flow Rate FiO2 12/03/19 12:52 84 12/03/19 09:00 Room Air 12/03/19 05:02 36.6 20 133/78 (96) 96 Capillary Refill : Less Than 3 Seconds General Appearance: No Apparent Distress, WD/WN, Anxious HEENT: PERRL/EOMI, Normal ENT Inspection, Pharynx Normal Neck: Full Range of Motion, Normal Inspection, Non Tender, Supple, Carotid Bruit Respiratory: Chest Non Tender, Lungs Clear, Normal Breath Sounds, No Accessory Muscle Use, No Respiratory Distress Cardiovascular: Regular Rate, Rhythm, No Edema, No Gallop, No JVD, No Murmur, Normal Peripheral Pulses Gastrointestinal: Normal Bowel Sounds, No Organomegaly, No Pulsatile Mass, Non Tender, Soft Back: Normal Inspection, No CVA Tenderness, No Vertebral Tenderness Extremity: Normal Capillary Refill, Normal Inspection, Normal Range of Motion, Non Tender, No Calf Tenderness, No Pedal Edema Neurologic/Psychiatric: Alert, Oriented x3, Normal Mood/Affect, Aphasia (partial), Facial Droop (right), Motor Weakness (right arm and leg 2/5) Skin: Normal Color, Warm/Dry Lymphatic: No Adenopathy Results/Procedures Lab Patient resulted labs reviewed. FIM Transfers Therapy Code Descriptions/Definitions Functional [place] Measure: 0=Not Assessed/NA 4=Minimal Assistance 1=Total Assistance 5=Supervision or Setup 2=Maximal Assistance 6=Modified [place] 3=Moderate Assistance 7=Complete IndependenceSCALE: Activities may be completed with or without assistive devices. 6-Tqqwvtwwht-nrdvxda completes the activity by him/herself with no assistance from a helper. 5-Set-up or Clean-up Assistance-helper sets up or cleans up; patient completes activity. [place] assists only prior to or following the activity. 4-Supervision or Touching Assistance-helper provides verbal cues and/or touching/steadying and/or contact guard assistance as patient completes activity. Assistance may be provided throughout the activity or intermittently. 3-Partial/Moderate Assistance-helper does LESS THAN HALF the effort. [place] lifts, holds or supports trunk or limbs, but provides less than half the effort. 2-Substantial/Maximal Assistance-helper does MORE THAN HALF the effort. [place] lifts or holds trunk or limbs and provides more than half the effort. 5-Vkawvnzik-oobxyq does ALL the effort. Patient does none of the effort to complete the activity. Or, the assistance of 2 or more helpers is required for the patient to complete the activity. If activity was not attempted, code reason: 7-Patient Refused. 9-Not Applicable-not attempted and the patient did not perform the activity before the current illness, exacerbation or injury. 10-Not Attempted due to Environmental Limitations-(lack of equipment, weather restraints, etc.). 88-Not Attempted due to Medical Conditions or Safety Concerns. Roll Left to Right (QC): 4 Sit to Lying (QC): 4 Sit to Stand (QC): 3 (CGA with occas assist to steady; pt tends to move quickly and can lose his balance. ) Chair/Nbc-fl-Vvwap Xfer(QC): 3 Car Transfer (QC): 3 Gait Training Does the Patient Walk?: Yes Walk 10 feet (QC): 3 Walk 50 ft with 2 Turns(QC): 3 Walk 150 ft (QC): 3 Walking 10ft/uneven surface-QC: 3 Gait Assistive Device: Cane Single Point Wheelchair Training Does the Pt Use a Wheelchair?: No Stair Training #of Steps: 4 1 Step (curb) (QC): 3 4 Steps (QC): 3 12 Steps (QC): 88 Balance Picking up an Object (QC): 88 ADL-Treatment Eating (QC): 5 (Per pt report) Oral Hygiene (QC): 5 (set up at tray table. Pt able to place red bioinformatics research technician onto toothbrush, and brush teeth using RUE. ) Shower/Bathe Self (QC): 4 (OT cued pt to sit down during shower for safety. Pt able to wash all parts, with CGA during standing at GBs) Upper Body Dressing (QC): 4 (SBA, with cues for safety as OT managed telemetry lines. Pt required increased time with task. ) Lower Body Dressing (QC): 4 (SBA, pt able to doff/don pants with increased time.) On/Off Footwear (QC): 3 (Pt able to don socks with increased time, he primarily used his left hand for task but he hooked sock onto his right thumb in order to get sock over toes. He then was able to slip his shoes on but required assist with tying.) Toileting Hygiene (QC): 4 (CGA during clothing management and hygiene) Assessment/Plan Assessment and Plan Assess & Plan/Chief Complaint Assessment: CVA with right sided weakness cryptogenic type s/p loop recorder by Dr Espino 12/03/19 Right facial droop HTN DM insulin dependence HGA1C 8.4 HLP HTG CRI likely DM nephropathy Situational depression Plan: IRF protocol Cardiology consultation for risk stratification appreciated ASA High dose statin BM regimen Monitor BP Hold metformin due to elevated creatinine for time being but restarted it creat 1.2 Psych evaluation ordered and completed and appreciated (1) Hemiparesis affecting dominant side as late effect of cerebrovascular accident (2) CVA (cerebral vascular accident) (3) Facial paralysis on right side Status: Acute (4) HTN (hypertension) Status: Acute (5) IDDM (insulin dependent diabetes mellitus) Status: Acute (6) Slurred speech Status: Acute (7) Status post placement of implantable loop recorder (8) Cryptogenic stroke TOYA OLGUIN DO Dec 03, 2019 11:25
--- NOTE | 2019-12-03 11:30 | NUR ---
DIET SWITCHED BACK TO SOLID FOOD PER SPEECH THERAPIST AND PATIENT REALIZES SAFETY PRECAUTIONS.
--- NOTE | 2019-12-03 11:52 | Occupational Ther Daily Note ---
OT Current Status-Daily Note Subjective Pt sitting upright in recliner, agreeable to OT tx. ADL-Treatment Therapy Code Descriptions/Definitions Functional [place] Measure: 0=Not Assessed/NA 4=Minimal Assistance 1=Total Assistance 5=Supervision or Setup 2=Maximal Assistance 6=Modified [place] 3=Moderate Assistance 7=Complete IndependenceSCALE: Activities may be completed with or without assistive devices. 3-Nerhoqsopy-zetjeau completes the activity by him/herself with no assistance from a helper. 5-Set-up or Clean-up Assistance-helper sets up or cleans up; patient completes activity. [place] assists only prior to or following the activity. 4-Supervision or Touching Assistance-helper provides verbal cues and/or touching/steadying and/or contact guard assistance as patient completes activity. Assistance may be provided throughout the activity or intermittently. 3-Partial/Moderate Assistance-helper does LESS THAN HALF the effort. [place] lifts, holds or supports trunk or limbs, but provides less than half the effort. 2-Substantial/Maximal Assistance-helper does MORE THAN HALF the effort. [place] lifts or holds trunk or limbs and provides more than half the effort. 6-Gxfsfbaog-csdwhq does ALL the effort. Patient does none of the effort to complete the activity. Or, the assistance of 2 or more helpers is required for the patient to complete the activity. If activity was not attempted, code reason: 7-Patient Refused. 9-Not Applicable-not attempted and the patient did not perform the activity before the current illness, exacerbation or injury. 10-Not Attempted due to Environmental Limitations-(lack of equipment, weather restraints, etc.). 88-Not Attempted due to Medical Conditions or Safety Concerns. On/Off Footwear: 5 (elastic shoe laces) Other Treatment Pt seated in recliner, agreed to OT tx. He was interested in trying out elastic laces given to his in earlier session. Pt doffed shoes, and OT switched out pt's laces for elastic laces. Pt then donned shoes by slipping them on. Pt indicated they felt like they were the right tension and he was pleased with the new laces. OT educated pt and they are free to switch his laces back to regular laces at anytime, but this is one way pt is able to be more independent with his ADLs at this time. Post OT session, pt sitting in recliner, call light in reach and all needs met. Education OT Patient Education: Correct positioning, Energy conservation, Modified ADL techniques, Progress toward Goal/Update tx plan, Purpose of tx/functional activities Teaching Recipient: Patient Teaching Methods: Discussion Response to Teaching: Verbalize Understanding OT Senior Field Service Engineer Goals Longterm Goals Time Frame: Dec 17, 2019 Eating (QC): 6 Oral Hygiene (QC): 6 Toileting Hygiene (QC): 6 Shower/Bathe Self (QC): 6 Upper Body Dressing (QC): 6 Lower Body Dressing (QC): 6 On/Off Footwear (QC): 6 Additional Goals: 1-Demonstrate ADL Tasks, 2-Verbalize Understanding, 3- ImproveStrength/Jamel 1=Demonstrate adherence to instructed precautions during ADL tasks. 2=Patient will verbalize/demonstrate understanding of assistive devices/modifications for ADL. 3=Patient will improve strength/tolerance for activity to enable patient to perform ADL's. OT Education/Plan Problem List/Assessment Assessment: Decreased Activ Tolerance, Decreased UE Strength, Impaired Coordination, Impaired I ADL's Discharge Recommendations Plan/Recommendations: Continue POC Treatment Plan/Plan of Care Treatment,Training & Education: Yes Patient would benefit from OT for education, treatment and training to promote independence in ADL's, mobility, safety and/or upper extremity function for ADL's. Plan of Care: ADL Retraining, Functional Mobility, Group Exercise/Act as Ind, UE Funct Exercise/Act Treatment Duration: Dec 17, 2019 Frequency: At least 5 of 7 days/Wk (IRF) Estimated Hrs Per Day: .25 hour per day Rehab Potential: Good Time/GCodes Start Time: 10:15 Stop Time: 10:30 Total Time Billed (hr/min): 15 Billed Treatment Time 1, ADL MIGNON SANDERSON OT Dec 03, 2019 11:52
[2019-12-03] MEDS ORDERED: LIDOCAINE 1% INJ 20 ML 20 ML VIAL ONE (11:56)
--- NOTE | 2019-12-03 11:58 | Cardiology Progress Note ---
Subjective Date Seen by Provider: Dec 03, 2019 Time Seen by Provider: 11:56 Subjective/Events-last exam Patient was seen during physical therapy. No new complaint Review of Systems General: No Chills, No Night Sweats, No Fatigue, No Malaise, No Appetite, No Other HEENT: No Head Aches, No Visual Changes, No Eye Pain, No Ear Pain, No Dysphasia, No Sinus Congestion, No Post Nasal Drip, No Sore Throat, No Other Pulmonary: No Dyspnea, No Cough, No Pleuritic Chest Pain, No Other Cardiovascular: No: Chest Pain, Palpitations, Orthopnea, Paroxysmal Noc. Dyspnea, Edema, Lt Headedness, Other Objective-Cardiology Exam Last Set of Vital Signs Vital Signs 12/03/19 12/03/19 05:02 06:41 Temp 36.6 Pulse 84 Resp 20 B/P (MAP) 133/78 (96) Pulse Ox 96 O2 Delivery Room Air Capillary Refill : Less Than 3 Seconds I&O Intake and Output 12/03/19 00:00 Intake Total 1230 ml Balance 1230 ml Intake Oral 1230 ml # Voids 7 General: Alert, Oriented X3, Cooperative HEENT: Atraumatic, PERRLA Neck: Supple, No JVD, No Thyromegaly Lungs: Clear to Auscultation, Normal Air Movement Heart: Regular Rate, Normal S1, Normal S2, No Murmurs Abdomen: Normal Bowel Sounds, Soft, No Tenderness, No Hepatosplenomegaly, No Masses Extremities: No Clubbing, No Cyanosis, No Edema, Normal Pulses, No Tenderness/Swelling Skin: No Rashes, No Breakdown, No Significant Lesion Neuro: Other ( right-sided weakness) Psych/Mental Status: Mental Status NL, Mood NL Results Lab Laboratory Tests Test 12/02/19 15:38 12/02/19 20:19 12/03/19 05:25 12/03/19 10:44 Range/Units Glucometer 263 H 228 H 208 H 234 H 70-110 MG/DL A/P-Cardiology Admission Diagnosis Cryptogenic stroke HTN HLP DM Assessment/Plan Cryptogenic stroke with right sided facial drooping, slurred speech and right sided weakness. MRI done 11/30/2019 revealed small acute to subacute ischemic infarct lateral aspect left thalamus with probable involvement posterior limb left internal capsule. Carotid duplex showed no evidence of stenosis. I will proceed with loop recorder implant and monitor HTN- continue to monitor blood pressure. HLP- maintained on statin as outpatient DM- management per PCP Obesity Multiple risk factors for underling LAURA- consider sleep study as outpatient. Clinical Quality Measures DVT/VTE Risk/Contraindication: Risk Factor Score Per Nursin RFS Level Per Nursing on Admit: 4+=Very High ANMOL LOWE MD Dec 03, 2019 11:58 am
--- NOTE | 2019-12-03 12:00 | NUR ---
DR. LOWE AND CREW HERE TO INSERT LOOP RECORDER.
--- NOTE | 2019-12-03 12:35 | Implantation of Loop Monitor ---
Implant of Loop Monitior IMPLANTATION OF LOOP MONITOR REPORT DATE OF PROCEDURE: 12/03/19 PREOP DIAGNOSIS: POSTOP DIAGNOSIS: PROCEDURE DETAILS: The patient is a 49 male with history of paroxysmal atrial fibrillation requiring long-term surveillance. Therefore implantable loop recorder was discussed and agreed with the patient. Informed consent was taken. All risks and complications were discussed at length. The patient was draped and prepped in the usual sterile fashion. Local anesthesia was lidocaine, which was given in the substernal area close to the 4th intercostal space. Loop monitor [id number] was implanted according to the protocol. Steri-Strips were placed at the end of the procedure. There were no complications and the patient tolerated the procedure well. The device was interrogated with a voltage of. ANESTHESIA: Local anesthesia with lidocaine. COMPLICATIONS: None CONTRAST/FLUOROSCOPY: None CONCLUSION: Successful implantation of loop recorder would no complication ANMOL LOWE MD Dec 03, 2019 12:35
--- NOTE | 2019-12-03 13:00 | NUR ---
ANDI FROM [facility] HERE TO SEE PATIENT.
--- NOTE | 2019-12-03 13:40 | Physical Therapy Daily Note ---
PT Daily Note-Current Subjective Pt. agreeable to rx. Flat affect, does most of communication. Pt. very cooperative Pain Location: No Pain Reported Mental Status Patient Orientation: Normal For Age Transfers SCALE: Activities may be completed with or without assistive devices. 0-Tqwnsbhqnp-mhbumaz completes the activity by him/herself with no assistance f rom a helper. 5-Set-up or Clean-up Assistance-helper sets up or cleans up; patient completes activity. [place] assists only prior to or following the activity. 4-Supervision or Touching Assistance-helper provides verbal cues and/or touching/steadying and/or contact guard assistance as patient completes activity. Assistance may be provided throughout the activity or intermittently. 3-Partial/Moderate Assistance-helper does LESS THAN HALF the effort. [place] lifts, holds or supports trunk or limbs, but provides less than half the effort. 2-Substantial/Maximal Assistance-helper does MORE THAN HALF the effort. [place] lifts or holds trunk or limbs and provides more than half the effort. 3-Sdvmasijm-opnsvv does ALL the effort. Patient does none of the effort to complete the activity. Or, the assistance of 2 or more helpers is required for the patient to complete the activity. If activity was not attempted, code reason: 7-Patient Refused. 9-Not Applicable-not attempted and the patient did not perform the activity before the current illness, exacerbation or injury. 10-Not Attempted due to Environmental Limitations-(lack of equipment, weather restraints, etc.). 88-Not Attempted due to Medical Conditions or Safety Concerns. all TRFs SBA to Mod I Gait Training Gait Assistive Device: Cane Single Point hurry cane SPC used as pt. is somewhat impulsive and this facilitates some control and safer velocity. gait 150 ft x 2 no LOB good sequence with SPC, balance challenges for side step left and right 10 ft as well as retro, no LOB, Exercises Standing: Hamstring curls, Heel/toe raises, 3 way Ex=Flex, Abd, Ext, Marching, Weight shifts Standing Reps: 12 NuStep Minutes: 10 NuStep Workload: 3 Neuromuscular reaching with twist high low with twist and weight shift required using left hand, no LOB Treatments on Nustep pt. was challenged to use RUE shoulder protraction and retraction with R hand affixed to Nustep arm with device. Assessment Current Status: Good Progress gives full effort PT Short Term Goals Short Term Goals Time Frame: Dec 09, 2019 Roll Left & Right: 5 Sit to lyin Lying to sitting on side of be: 5 Sit to stand: 5 Chair/jsp-ye-ozstv transfer: 5 Toilet transfer: 5 Car transfer: 4 Walk 10 feet: 4 Walk 50 feet with two turns: 4 Walk 150 feet: 4 Walking 10ft on uneven surface: 4 1 step (curb): 4 4 steps: 4 12 steps: 4 PT Interior Paneler Goals Mcfp Goals PT Interior Paneler Goals Time Frame: Dec 23, 2019 Roll Left & Right (QC): 6 Sit to Lying (QC): 6 Lying-Sitting on Side/Bed(QC): 6 Sit to Stand (QC): 6 Chair/Lzs-qu-Ynhdt Xfer(QC): 6 Toilet Transfer (QC): 6 Car Transfer (QC): 6 Does the Patient Walk: Yes Walk 10 feet (QC): 6 Walk 50ft with 2 Turns (QC): 6 Walk 150 ft (QC): 6 Walking 10ft on Uneven Surface: 6 1 Step (curb) (QC): 6 4 Steps (QC): 6 12 Steps (QC): 6 Picking up an Object (QC): 6 Does the Pt use WC or Scooter?: No PT Plan Treatment/Plan Treatment Plan: Continue Plan of Care Treatment Plan: Bed Mobility, Education, Functional Activity Jamel, Functional Strength, Group Therapy, Gait, Safety, Therapeutic Exercise, Transfers Treatment Duration: Dec 23, 2019 Frequency: At least 5 of 7 days/Wk (IRF) Estimated Hrs Per Day: 1.5 hours per day Patient and/or Family Agrees t: Yes Safety Risks/Education Patient Education: Gait Training, Correct Positioning, Safety Issues (discussed impulsiveness with and pt. and she is willing to cue and monitor pt ) Teaching Recipient: Patient, Family Teaching Methods: Demonstration, Discussion Response to Teaching: Verbalize Understanding, Return Demonstration, Reinforcement Needed Time/GCodes Time In: 1300 Time Out: 1330 Total Billed Treatment Time: 30 Total Billed Treatment 1,EX15m,NM15m LIAM JARRETT INDEX EDITOR Dec 03, 2019 13:40
--- NOTE | 2019-12-03 13:53 | Behavioral Health Consult ---
Consult- Consult Date Seen by Provider: Dec 03, 2019 Time Seen by Provider: 12:35 Date: 12/03/2019 Referral: Dr. Mclean CPT Code: 73585 Psychodiagnostic Examination [place] [address] Interactive Complexity, 1 unit(s) Start Time: 1235 Stop Time: 1310 Chief Complaint: Situational Depression Referral: Jasbir Mcgovern is a 49 year old male referred by Dr. Mclean for a clinical diagnostic assessment. Information sources for this evaluation include self-report/observation, and medical records. Presenting Problem: The presenting clinical problem is Situational Depression. Duration of the current problem has been since a CVA on 11/30/19. The primary clinical theme and problem discussed during the appointment was that Mr. Mcgovern is three days post CVA with right sided weakness. He had displayed symptoms of depression with tearfulness. This medical setback is an adjustment that he and his family are coping with. Mr. Mcgovern did acknowledge that he had been unable to see his youngest son since the incident and after seeing him last evening he felt much better. Both he and his reported that they are already seeing improvements and have high hopes for a full recovery. They expect there to be some stress and accept that. Mr. Mcgovern did not feel that he had depressive symptoms that were significant enough for current medication management. He would like to see how his recovery continues to go and readdress medication management if necessary. Mr. Mcgovern was administered a mini-mental status exam and did not have any significant deficits. Symptoms observed or reported requiring current level of care include anxiety, depressed mood, fatigue/low energy, frequent tearfulness, medical problems, and worry. Observations/Mental Status: Mr. Mcgovern was seen along with his , Kenzie, in his hospital room. Overall appearance was unremarkable clinically. The patient was a good historian. Mr. Hdz general approach to the evaluation indicated interest. Orientation was intact for person, place, time, and situation. Mr. Mcgovern evidenced good understanding of the reason for the appointment. The pred ominant mood was that of flat with restricted affect. Immediate attention and concentration was unremarkable clinically during the interview. Level of intellectual functioning compared to same age peers was average range. Thought processes were found to be generally logical, coherent and goal directed. Thought content appeared normal. Tone of voice was soft and manner of speech was normal. Expressive speech was marked by fluent speech and language. Current destructive behavior patterns: none reported or indicated. Eye contact was fair. Insight was average. Current/Previous Mental Health Treatment: Past psychiatric history: None. History of self or other harm: Denied. History of abuse: Denied. Medical History: Reported medical conditions prior to his stroke included Lou thrasher. Current primary care physician is Dr. Deluna. Family and Social Histories: Mr. Mcgovern currently lives with his , Kenzie. She has been very involved in his care and was present during the assessment. 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 Summary of Assessment Information/Prognosis: Mr. Hdz presenting problem and symptoms appear consistent with a preliminary diagnosis of F43.21 Adjustment Disorder with Depressed Mood at this point. Current emotional symptoms are of moderate intensity. Prognosis is good. Diagnostic Impressions: ICD-10: F43.21 Adjustment Disorder with Depressed Mood Initial Treatment Plan/Recommendations: The anticipated long-term goal(s) include acknowledge the depression verbally and resolve its causes, leading to normalization of the emotional state. The recommendations at this time include the following: Follow-up with outpatient counseling if symptoms persist following discharge. Jasbir verbalized understanding of these recommendations and an intention to comply. ANDI GODOY [facility] Dec 03, 2019 13:53
--- NOTE | 2019-12-03 15:27 | Physical Therapy Daily Note ---
PT Daily Note-Current Subjective Pt agreeable to PT session. Pain Numeric Pain Scale: 0-No Pain Appearance Pt sitting up in chair with present upon arrival and throughout tx session. At end of session, pt laying in bed with call light, phone and bedside commode within reach, cardiac cath lab manager present for procedure. Mental Status Patient Orientation: Normal For Age Transfers SCALE: Activities may be completed with or without assistive devices. 0-Xstfgckpde-tgdhibo completes the activity by him/herself with no assistance from a helper. 5-Set-up or Clean-up Assistance-helper sets up or cleans up; patient completes activity. [place] assists only prior to or following the activity. 4-Supervision or Touching Assistance-helper provides verbal cues and/or touching/steadying and/or contact guard assistance as patient completes activity. Assistance may be provided throughout the activity or intermittently. 3-Partial/Moderate Assistance-helper does LESS THAN HALF the effort. [place] lifts, holds or supports trunk or limbs, but provides less than half the effort. 2-Substantial/Maximal Assistance-helper does MORE THAN HALF the effort. [place] lifts or holds trunk or limbs and provides more than half the effort. 3-Vnlbjgiev-ywywre does ALL the effort. Patient does none of the effort to complete the activity. Or, the assistance of 2 or more helpers is required for the patient to complete the activity. If activity was not attempted, code reason: 7-Patient Refused. 9-Not Applicable-not attempted and the patient did not perform the activity before the current illness, exacerbation or injury. 10-Not Attempted due to Environmental Limitations-(lack of equipment, weather restraints, etc.). 88-Not Attempted due to Medical Conditions or Safety Concerns. Roll Left & Right (QC): 6 Sit to Lying (QC): 6 Lying to Sitting/Side of Bed(Q: 6 Sit to Stand (QC): 4 (impulsive at times) Gait Training Does the Patient Walk?: Yes Distance: 200 x2 Walk 10 feet (QC): 4 Walk 50 ft with 2 Turns(QC): 4 Walk 150 ft (QC): 4 Gait Persons Needed: 1 Gait Assistive Device: None began initial gait with hurry cane, ended treatment session with no AD noting slight path deviation, good pace, no LOB Wheelchair Training Does the Pt Use a Wheelchair?: No Neuromuscular gait without AD weaving around objects 50 ft x10 reps then dribbling ball with both feet x10 reps, stepping over 8 various sized objects x10 reps, 3 x3 sets lateral gait while toe tapping 10 L and R cones following sequencing instructions and picking up all cones at last set. standing on airex without UE support CW and CCW circles x5, mini squats x20, high knee march x20, single leg stance x1 min each x3 reps, heel toe raises x20 Assessment Current Status: Good Progress PT Short Term Goals Short Term Goals Time Frame: Dec 09, 2019 Roll Left & Right: 5 Sit to lyin Lying to sitting on side of be: 5 Sit to stand: 5 Chair/gxy-uh-fsyra transfer: 5 Toilet transfer: 5 Car transfer: 4 Walk 10 feet: 4 Walk 50 feet with two turns: 4 Walk 150 feet: 4 Walking 10ft on uneven surface: 4 1 step (curb): 4 4 steps: 4 12 steps: 4 PT Water Proofer Goals Snf Goals PT Water Proofer Goals Time Frame: Dec 23, 2019 Roll Left & Right (QC): 6 Sit to Lying (QC): 6 Lying-Sitting on Side/Bed(QC): 6 Sit to Stand (QC): 6 Chair/Lli-cg-Owaea Xfer(QC): 6 Toilet Transfer (QC): 6 Car Transfer (QC): 6 Does the Patient Walk: Yes Walk 10 feet (QC): 6 Walk 50ft with 2 Turns (QC): 6 Walk 150 ft (QC): 6 Walking 10ft on Uneven Surface: 6 1 Step (curb) (QC): 6 4 Steps (QC): 6 12 Steps (QC): 6 Picking up an Object (QC): 6 Does the Pt use WC or Scooter?: No PT Plan Treatment/Plan Treatment Plan: Continue Plan of Care Treatment Plan: Bed Mobility, Education, Functional Activity Jamel, Functional Strength, Group Therapy, Gait, Safety, Therapeutic Exercise, Transfers Treatment Duration: Dec 23, 2019 Frequency: At least 5 of 7 days/Wk (IRF) Estimated Hrs Per Day: 1.5 hours per day Patient and/or Family Agrees t: Yes Safety Risks/Education Patient Education: Gait Training, Transfer Techniques, Reviewed Precautions, Safety Issues Teaching Recipient: Patient, Family Teaching Methods: Demonstration, Discussion Response to Teaching: Verbalize Understanding, Return Demonstration Time/GCodes Time In: 1100 Time Out: 1150 Total Billed Treatment Time: 50 Total Billed Treatment 1 visit, NM x40 min, GT x10 min SHY BRAVO PTA Dec 03, 2019 15:27
--- NOTE | 2019-12-03 15:33 | Speech Therapy Daily Note ---
Speech Daily Progress Note Subjective Date Seen by Provider: Dec 03, 2019 Time Seen by Provider: 00:30 Patient was more positive and interactive today. Objective Patient completed speech questions with 90% accuracy. Speech production is noted to be more intelligible. Assessment Assessment Current Status: Good Progress Treatment Plan Continue Plan of Care Speech Short Term Goals Short Term Goals Short Term Goals 1) Patient will complete memory tasks related to his daily needs with 90% or greater. 2) Patient will complete safety awareness tasks related to his daily needs with 90% or greater. 3) Patient will complete problem solving tasks related to his daily needs with 90% or greater. 4) Patient will complete oral motor exercises with 90% or greater. Speech Director Executive Communications Goals Chcf Goals Patient will improve cognitive and speech production to prior level at 90% or greater. Speech-Plan Patient/Family Goals Patient/Family Goals: Patient plans on returning to his home with family upon rehab discharge. Treatment Plan Speech Therapy Treatment Plan: Continue Plan of Care Treatment Duration: Dec 02, 2019 Frequency: Modified Program (IRF) Estimated Hrs Per Day: .5 hour per day Rehab Potential: Good Barriers to Learning: Patient's recent CVA. Pt/Family Agrees to Plan: Yes Safety Risks/Education Teaching Recipient: Patient, Significant Other Teaching Methods: Discussion Response to Teaching: Verbalize Understanding Education Topics Provided: Continued safety and communication of wants/needs. Time Speech Therapy Time In: 15:00 Speech Therapy Time Out: 15:30 Total Billed Time: 30 Billed Treatment Time [address] Dec 03, 2019 15:33
[2019-12-03 16:00] VITALS: BP 105/54
[2019-12-03] MEDS ORDERED: CATHETER FLUSH 10 ML SYR IV PRN (16:30)
[2019-12-03] MEDS: CATHETER FLUSH 10 ML SYR IV SCH (20:07)
[2019-12-03] MEDS: FENOFIBRATE 134 MG (LOFIBRA) CAPSULE PO SCH (20:07)
[2019-12-04 05:48] VITALS: BP 107/68
[2019-12-04] MEDS: metFORMIN 500 MG (GLUCOPHAGE) TAB PO SCH (06:44)
[2019-12-04] MEDS: ENOXAPARIN 40 MG/0.4 ML (LOVENOX) SYR SC SCH ×2 (06:45→18:13)
[2019-12-04] MEDS: inSUlin ASPART (NovoLOG) 1 UNIT/0.01 ML (CHARGE PER UNIT) SC SCH ×3 (06:45→16:50)
[2019-12-04] MEDS: CATHETER FLUSH 10 ML SYR IV SCH (06:45)
[2019-12-04 08:00] VITALS: BP 110/71
--- NOTE | 2019-12-04 09:04 | Occupational Ther Daily Note ---
OT Current Status-Daily Note Subjective Pt seen post-PT session. Pt in chair, agreeable to OT tx. Given options, pt chooses to work on RUE on this date. Pt denies pain. Mental Status/Objective Patient Orientation: Person, Place, Situation ADL-Treatment Therapy Code Descriptions/Definitions Functional [place] Measure: 0=Not Assessed/NA 4=Minimal Assistance 1=Total Assistance 5=Supervision or Setup 2=Maximal Assistance 6=Modified [place] 3=Moderate Assistance 7=Complete IndependenceSCALE: Activities may be completed with or without assistive devices. 2-Sqgqqzyhwi-plywwwz completes the activity by him/herself with no assistance from a helper. 5-Set-up or Clean-up Assistance-helper sets up or cleans up; patient completes activity. [place] assists only prior to or following the activity. 4-Supervision or Touching Assistance-helper provides verbal cues and/or touching/steadying and/or contact guard assistance as patient completes activity. Assistance may be provided throughout the activity or intermittently. 3-Partial/Moderate Assistance-helper does LESS THAN HALF the effort. [place] lifts, holds or supports trunk or limbs, but provides less than half the effort. 2-Substantial/Maximal Assistance-helper does MORE THAN HALF the effort. [place] lifts or holds trunk or limbs and provides more than half the effort. 1-Nhvayevwq-rpxfzu does ALL the effort. Patient does none of the effort to complete the activity. Or, the assistance of 2 or more helpers is required for the patient to complete the activity. If activity was not attempted, code reason: 7-Patient Refused. 9-Not Applicable-not attempted and the patient did not perform the activity before the current illness, exacerbation or injury. 10-Not Attempted due to Environmental Limitations-(lack of equipment, weather restraints, etc.). 88-Not Attempted due to Medical Conditions or Safety Concerns. Eating (QC): 2 (utilizing an additional built up handle, pt unable to maintain assisted living nursing director strength to bring spoon to mouth. Pt given universal cuff, with proximal muscles stabilized in 90* scaption, and elbow stabilized by OT, pt able to bring spoon to mouth (flexing/ extending elbow). Pt educated on completing every 5 bites with R hand to encourage movement.) Oral Hygiene (QC): 7 Shower/Bathe Self (QC): 7 Other Treatment Pt requests working on RUE on this date. Pt begins in front of mirror in therapy gym. Completes shoulder shrugs, shoulder scaption, elbow flexion and sup/ pronation with visual feedback. Pt requires max A with assist (use of muscle ac tiviation with ice and muscle taps) for opposition. Pt completes assisted living nursing director strength: R 38lbs, 5lbs. L: 140 lbs, 145 lbs. Pt educated on results and interpretation. Pt educated on weight bearing during standing activities (on RUE). Pt completes standing task while maintaining weight on RUE, then completes shoulder flexion and wide circles in both adduction and abduction on frictionless surface. Pt returns to room, educated on proper positioning for feeding task and utilizing cuff. Pt return demonstrates with max A for maintenance of proximal mm stability. Pt left in recliner, all needs met, call light in [facility]. Education OT Patient Education: Correct positioning, Exercise program, Home exercise program, Modified ADL techniques, Purpose of tx/functional activities, Use of adapted equipment Teaching Recipient: Patient Teaching Methods: Demonstration, Discussion Response to Teaching: Verbalize Understanding, Return Demonstration, Reinforcement Needed OT Senior Living Goals Senior Living Goals Time Frame: Dec 17, 2019 Eating (QC): 6 Oral Hygiene (QC): 6 Toileting Hygiene (QC): 6 Shower/Bathe Self (QC): 6 Upper Body Dressing (QC): 6 Lower Body Dressing (QC): 6 On/Off Footwear (QC): 6 Additional Goals: 1-Demonstrate ADL Tasks, 2-Verbalize Understanding, 3- ImproveStrength/Jamel 1=Demonstrate adherence to instructed precautions during ADL tasks. 2=Patient will verbalize/demonstrate understanding of assistive devices/modifications for ADL. 3=Patient will improve strength/tolerance for activity to enable patient to perform ADL's. OT Education/Plan Problem List/Assessment Assessment: Decreased Activ Tolerance, Decreased UE Strength, Impaired Funct Balance, Impaired I ADL's, Impaired Self-Care Skills, Restricted Funct UE ROM Discharge Recommendations Plan/Recommendations: Continue POC Therapy Discharge Recommendati: Intermittent Supervision, Home & Family, Post Acute OT Treatment Plan/Plan of Care Treatment,Training & Education: Yes Patient would benefit from OT for education, treatment and training to promote independence in ADL's, mobility, safety and/or upper extremity function for ADL's. Plan of Care: ADL Retraining, Functional Mobility, Group Exercise/Act as Ind, UE Funct Exercise/Act Treatment Duration: Dec 17, 2019 Frequency: At least 5 of 7 days/Wk (IRF) Estimated Hrs Per Day: .25 hour per day Rehab Potential: Good Time/GCodes Start Time: 08:15 Stop Time: 09:00 Total Time Billed (hr/min): 45 Billed Treatment Time 1, ADL, EX 2 (45) LAM JAIME OTR Dec 04, 2019 09:04
[2019-12-04] MEDS: DOCUSATE SODIUM 100 MG (COLACE) CAP PO SCH ×2 (09:21→20:03)
[2019-12-04] MEDS: lisINopril 40 MG (PRINIVIL) TABLET PO SCH (09:21)
[2019-12-04] MEDS: SENNA W/DOCUSATE (SENOKOT S) TABLET PO SCH ×2 (09:21→20:03)
[2019-12-04] MEDS: amLODIPine 5 MG (NORVASC) TAB PO SCH (09:21)
[2019-12-04] MEDS: ASPIRIN E.C. 81 MG (ECOTRIN) TAB PO SCH (09:21)
[2019-12-04] MEDS: polyethylene glycoL POWDER 17 GM (MIRALAX) PACK PO SCH ×2 (09:23→19:59)
--- NOTE | 2019-12-04 10:54 | Physical Therapy Daily Note ---
PT Daily Note-Current Subjective Pt agreeable to PT session, does not talk much, pt and both state that he has never been much of a conversationalist Pain Numeric Pain Scale: 0-No Pain Appearance Pt sitting up in recliner before and after therapy session, call light, phone an d bedside table within reach. Mental Status Patient Orientation: Normal For Age Transfers SCALE: Activities may be completed with or without assistive devices. 1-Pwkpbdrfns-koblrvl completes the activity by him/herself with no assistance from a helper. 5-Set-up or Clean-up Assistance-helper sets up or cleans up; patient completes activity. [place] assists only prior to or following the activity. 4-Supervision or Touching Assistance-helper provides verbal cues and/or touching/steadying and/or contact guard assistance as patient completes activity. Assistance may be provided throughout the activity or intermittently. 3-Partial/Moderate Assistance-helper does LESS THAN HALF the effort. [place] lifts, holds or supports trunk or limbs, but provides less than half the effort. 2-Substantial/Maximal Assistance-helper does MORE THAN HALF the effort. [place] lifts or holds trunk or limbs and provides more than half the effort. 7-Tvllowqnh-ptqxpp does ALL the effort. Patient does none of the effort to complete the activity. Or, the assistance of 2 or more helpers is required for the patient to complete the activity. If activity was not attempted, code reason: 7-Patient Refused. 9-Not Applicable-not attempted and the patient did not perform the activity before the current illness, exacerbation or injury. 10-Not Attempted due to Environmental Limitations-(lack of equipment, weather restraints, etc.). 88-Not Attempted due to Medical Conditions or Safety Concerns. Sit to Stand (QC): 5 (impulsive at times) Gait Training Does the Patient Walk?: Yes Distance: 200 x2 Walk 10 feet (QC): 4 Walk 50 ft with 2 Turns(QC): 4 Walk 150 ft (QC): 4 Gait Persons Needed: 1 Gait Assistive Device: None slight decreased hip and knee flexion and heel strike RLE, no LOB, good pace, skilled verb inst and encouragement for B arms swing and increasing hip/knee flexion and heelstrike/toe off with RLE Stair Training Stair Training: Handrails/: 1 handrail (to encourage use of LUE) #of Steps: 16 4 Steps (QC): 4 12 Steps (QC): 4 Stairs: Pattern: Reciprocal fair pace, pt slowing self down to be less impulsive and cautious of R foot Neuromuscular sitting balance unsupported putting on socks and shoes, standing/walking dynamic activities without UE support: toe taps at stairs alt LE's, stepping over various height objects and using RLE to adjust them when needed, placing foot on ball rolling 3 times fwd/bkwd and lifting off again, SLS, SLS with mini squats, SLS with heel lifts Assessment Current Status: Good Progress PT Short Term Goals Short Term Goals Time Frame: Dec 09, 2019 Roll Left & Right: 5 Sit to lyin Lying to sitting on side of be: 5 Sit to stand: 5 Chair/fmu-nb-vpcbc transfer: 5 Toilet transfer: 5 Car transfer: 4 Walk 10 feet: 4 Walk 50 feet with two turns: 4 Walk 150 feet: 4 Walking 10ft on uneven surface: 4 1 step (curb): 4 4 steps: 4 12 steps: 4 PT Licensed Occupational Therapy Assistant Goals Licensed Occupational Therapy Assistant Goals PT Licensed Occupational Therapy Assistant Goals Time Frame: Dec 23, 2019 Roll Left & Right (QC): 6 Sit to Lying (QC): 6 Lying-Sitting on Side/Bed(QC): 6 Sit to Stand (QC): 6 Chair/Oku-eh-Icghb Xfer(QC): 6 Toilet Transfer (QC): 6 Car Transfer (QC): 6 Does the Patient Walk: Yes Walk 10 feet (QC): 6 Walk 50ft with 2 Turns (QC): 6 Walk 150 ft (QC): 6 Walking 10ft on Uneven Surface: 6 1 Step (curb) (QC): 6 4 Steps (QC): 6 12 Steps (QC): 6 Picking up an Object (QC): 6 Does the Pt use WC or Scooter?: No PT Plan Treatment/Plan Treatment Plan: Continue Plan of Care Treatment Plan: Bed Mobility, Education, Functional Activity Jamel, Functional Strength, Group Therapy, Gait, Safety, Therapeutic Exercise, Transfers Treatment Duration: Dec 23, 2019 Frequency: At least 5 of 7 days/Wk (IRF) Estimated Hrs Per Day: 1.5 hours per day Patient and/or Family Agrees t: Yes Safety Risks/Education Patient Education: Gait Training, Transfer Techniques, Reviewed Precautions, Disease Process, Safety Issues Teaching Recipient: Patient Teaching Methods: Demonstration, Discussion Response to Teaching: Verbalize Understanding, Return Demonstration, Reinforcement Needed Time/GCodes Time In: 745 Time Out: 815 Total Billed Treatment Time: 30 Total Billed Treatment 1 visit, NM x2 units SHY BRAVO PTA Dec 04, 2019 10:54
--- NOTE | 2019-12-04 11:40 | PM&R Progress Note ---
Subjective HPI/CC On Admission Date Seen by Provider: Dec 04, 2019 Time Seen by Provider: 11:45 Subjective/Events-last exam Patient had a pretty good night Talked about rethinking the addition of a mood stabilizer like Effexor that he refused yesterday since he appears very depressed DC Telemetry since loop recorder placed yesterday Increasing insulin due to elevated readings takes extensive notes every day with every provider who enters the room Decreasing carb content of his diet today since his readings are too high Lipitor tolerated Denies any pain Conferred with RN Reviewed therapy notes Check meds and labs Blood sugar checks monitored Review of Systems General: Fatigue Neurological: Weakness, Numbness, Incoordination Depression Objective Exam Vital Signs Vital Signs Date Time Temp Pulse Resp B/P (MAP) Pulse Ox O2 Delivery O2 Flow Rate FiO2 12/04/19 17:17 36.1 75 20 119/71 (87) 95 Room Air Capillary Refill : Less Than 3 Seconds General Appearance: No Apparent Distress, WD/WN, Anxious HEENT: PERRL/EOMI, Normal ENT Inspection, Pharynx Normal Neck: Full Range of Motion, Normal Inspection, Non Tender, Supple, Carotid Bruit Respiratory: Chest Non Tender, Lungs Clear, Normal Breath Sounds, No Accessory Muscle Use, No Respiratory Distress Cardiovascular: Regular Rate, Rhythm, No Edema, No Gallop, No JVD, No Murmur, Normal Peripheral Pulses Gastrointestinal: Normal Bowel Sounds, No Organomegaly, No Pulsatile Mass, Non Tender, Soft Back: Normal Inspection, No CVA Tenderness, No Vertebral Tenderness Extremity: Normal Capillary Refill, Normal Inspection, Normal Range of Motion, Non Tender, No Calf Tenderness, No Pedal Edema Neurologic/Psychiatric: Alert, Oriented x3, Normal Mood/Affect, Aphasia (partial), Facial Droop (right), Motor Weakness (right arm and leg 2/5) Skin: Normal Color, Warm/Dry Lymphatic: No Adenopathy Results/Procedures Lab Patient resulted labs reviewed. FIM Transfers Therapy Code Descriptions/Definitions Functional [place] Measure: 0=Not Assessed/NA 4=Minimal Assistance 1=Total Assistance 5=Supervision or Setup 2=Maximal Assistance 6=Modified [place] 3=Moderate Assistance 7=Complete IndependenceSCALE: Activities may be completed with or without assistive devices. 0-Pqlilerkzh-psappyo completes the activity by him/herself with no assistance from a helper. 5-Set-up or Clean-up Assistance-helper sets up or cleans up; patient completes activity. [place] assists only prior to or following the activity. 4-Supervision or Touching Assistance-helper provides verbal cues and/or touching/steadying and/or contact guard assistance as patient completes activity. Assistance may be provided throughout the activity or intermittently. 3-Partial/Moderate Assistance-helper does LESS THAN HALF the effort. [place] lifts, holds or supports trunk or limbs, but provides less than half the effort. 2-Substantial/Maximal Assistance-helper does MORE THAN HALF the effort. [place] lifts or holds trunk or limbs and provides more than half the effort. 4-Fqslsrfhu-qecrur does ALL the effort. Patient does none of the effort to comp lete the activity. Or, the assistance of 2 or more helpers is required for the patient to complete the activity. If activity was not attempted, code reason: 7-Patient Refused. 9-Not Applicable-not attempted and the patient did not perform the activity before the current illness, exacerbation or injury. 10-Not Attempted due to Environmental Limitations-(lack of equipment, weather restraints, etc.). 88-Not Attempted due to Medical Conditions or Safety Concerns. Roll Left to Right (QC): 6 Sit to Lying (QC): 6 Sit to Stand (QC): 5 (impulsive at times) Chair/Bbl-xv-Klyqe Xfer(QC): 3 Car Transfer (QC): 3 Gait Training Does the Patient Walk?: Yes Distance: 200 x2 Walk 10 feet (QC): 4 Walk 50 ft with 2 Turns(QC): 4 Walk 150 ft (QC): 4 Walking 10ft/uneven surface-QC: 3 Gait Persons Needed: 1 Gait Assistive Device: None Wheelchair Training Does the Pt Use a Wheelchair?: No Stair Training Stair Training: Handrails/: 1 handrail (to encourage use of LUE) #of Steps: 16 1 Step (curb) (QC): 3 4 Steps (QC): 4 12 Steps (QC): 4 Stairs: Pattern: Reciprocal Balance Picking up an Object (QC): 88 ADL-Treatment Eating (QC): 2 (utilizing an additional built up handle, pt unable to maintain assistant case manager strength to bring spoon to mouth. Pt given universal cuff, with proximal muscles stabilized in 90* scaption, and elbow stabilized by OT, pt able to bring spoon to mouth (flexing/ extending elbow). Pt educated on completing every 5 bites with R hand to encourage movement.) Oral Hygiene (QC): 7 Shower/Bathe Self (QC): 7 Upper Body Dressing (QC): 4 (SBA, with cues for safety as OT managed telemetry lines. Pt required increased time with task. ) Lower Body Dressing (QC): 4 (SBA, pt able to doff/don pants with increased time.) On/Off Footwear (QC): 5 (elastic shoe laces) Toileting Hygiene (QC): 4 (CGA during clothing management and hygiene) Assessment/Plan Assessment and Plan Assess & Plan/Chief Complaint Assessment: CVA with right sided weakness cryptogenic type s/p loop recorder by Dr Espino 12/03/19 Right facial droop HTN DM insulin dependence HGA1C 8.4 HLP HTG CRI likely DM nephropathy Situational depression Plan: IRF protocol Cardiology consultation for risk stratification appreciated ASA High dose statin BM regimen Monitor BP Held metformin due to elevated creatinine on admit but restarted it since creat 1.2 Psych evaluation ordered and completed and appreciated Effexor if he allows to help situational depression which could limit his recovery Increase insulin DC Tely (1) Hemiparesis affecting dominant side as late effect of cerebrovascular accident (2) CVA (cerebral vascular accident) (3) Facial paralysis on right side Status: Acute (4) HTN (hypertension) Status: Acute (5) IDDM (insulin dependent diabetes mellitus) Status: Acute (6) Slurred speech Status: Acute (7) Status post placement of implantable loop recorder (8) Cryptogenic stroke TOYA OLGUIN DO Dec 04, 2019 11:40
--- NOTE | 2019-12-04 17:05 | Progress Note - Cardiology ---
Cardiology SOAP Progress Note Subjective: No cp or palp or syncope R-sided weakness Gen weakness No n/v/d Objective: I&O/Vital Signs 12/04/19 12/04/19 12/04/19 12/04/19 05:48 07:00 08:00 09:00 Temp 35.8 Pulse 72 79 93 Resp 20 B/P (MAP) 107/68 (81) 110/71 (84) Pulse Ox 96 O2 Delivery Room Air Room Air 12/04/19 12:27 Pulse 83 12/04/19 00:00 Intake Total 950 ml Balance 950 ml Constitutional: AAO x 3, well-developed, well-nourished Respiratory: No accessory muscle use; other (good bilat air entry) Cardiovascular: regular rate-rhythm, S1 and S2, systolic murmur (faint LILIAM at card base) Gastrointestional: No tender; soft; No guarding, No rebound; audible bowel sounds Extremities: No clubbing, No cyanosis, No significant edema Neurologic/Psychiatric: oriented x 3, other (R-sided weakness) Results/Procedures: Labs Laboratory Tests 12/03/19 20:23: Glucometer 179H 12/04/19 05:08: Glucometer 255H 12/04/19 10:37: Glucometer 246H 12/04/19 15:33: Glucometer 181H A/P: Assessment: Cryptogenic stroke with right-sided weakness. MRI of 11/30/2019 revealed small acute to subacute ischemic infarct lateral aspect left thalamus with probable involvement posterior limb left internal capsule. Carotid duplex showed no ev idence of stenosis S/p ILR on 12/03/19 Echo of 12/02/19: LVEF 55-65%, mildly dilated LA, PASP 35 mmHg HTN HLP DM- management per PCP Obesity Multiple risk factors for underling LAURA Plan: * I interviewed and examined him and reviewed his records * I answered his and his 's CV-related questions * Continue current regimen and continue to monitor * I advised sleep studies. They are considering [facility] Dec 04, 2019 17:05
[2019-12-04 17:17] VITALS: BP 119/71
--- NOTE | 2019-12-04 17:21 | NUR ---
TELEMETRY AND SALINE LOCK D/C'D PER DR. OLGUIN ORDER. PATIENT UP AND ABOUT QUITE A BIT WITH HIS TODAY IN PATIENT'S ROOM. NURSE DISCUSSED WITH PATIENT AND THAT PATIENT SHOULD BE WALKING ONLY WITH STAFF ASSIST AND GAIT BELT. PATIENT AND VERBALIZED UNDERSTANDING BUT CONTINUE TO WALK IN PATIENT'S ROOM. NEW ORDERS RECEIVED FROM DR. OLGUIN TO INCREASE NOVOLOG TO 40UNITS WITH MEALS AND LEVEMIR UP TO 60UNITS AT HS. PATIENT AND AWARE OF CHANGES IN INSULIN ORDERS.
[2019-12-04] MEDS: FENOFIBRATE 134 MG (LOFIBRA) CAPSULE PO SCH (20:11)
[2019-12-05 05:03] VITALS: BP 128/75
[2019-12-05] MEDS: ENOXAPARIN 40 MG/0.4 ML (LOVENOX) SYR SC SCH ×2 (06:28→17:31)
[2019-12-05] MEDS: metFORMIN 500 MG (GLUCOPHAGE) TAB PO SCH (06:28)
[2019-12-05] MEDS: inSUlin ASPART (NovoLOG) 1 UNIT/0.01 ML (CHARGE PER UNIT) SC SCH ×3 (06:29→17:31)
[2019-12-05] MEDS: DOCUSATE SODIUM 100 MG (COLACE) CAP PO SCH ×2 (08:49→19:25)
[2019-12-05] MEDS: lisINopril 40 MG (PRINIVIL) TABLET PO SCH (08:49)
[2019-12-05] MEDS: ASPIRIN E.C. 81 MG (ECOTRIN) TAB PO SCH (08:49)
[2019-12-05] MEDS: amLODIPine 5 MG (NORVASC) TAB PO SCH (08:49)
[2019-12-05] MEDS: SENNA W/DOCUSATE (SENOKOT S) TABLET PO SCH ×2 (08:50→19:24)
[2019-12-05] MEDS: polyethylene glycoL POWDER 17 GM (MIRALAX) PACK PO SCH ×2 (08:50→19:24)
--- NOTE | 2019-12-05 10:40 | Progress Note - Cardiology ---
Cardiology SOAP Progress Note Subjective: No new symptoms Does not report cp or palp or syncope or shortness of breath No n/v/d Objective: I&O/Vital Signs 12/05/19 05:03 Temp 36.7 Pulse 68 Resp 20 B/P (MAP) 128/75 (92) Pulse Ox 95 O2 Delivery Room Air 12/05/19 00:00 Intake Total 1180 ml Balance 1180 ml Constitutional: AAO x 3, well-developed, well-nourished Respiratory: No accessory muscle use; other (good bilat air entry) Cardiovascular: regular rate-rhythm, S1 and S2, systolic murmur (faint LILIAM at card base) Gastrointestional: No tender; soft; No guarding, No rebound; audible bowel sounds Extremities: No clubbing, No cyanosis, No significant edema Neurologic/Psychiatric: oriented x 3, other (R-sided weakness) Results/Procedures: Labs Laboratory Tests 12/04/19 15:33: Glucometer 181H 12/04/19 20:54: Glucometer 210H 12/05/19 05:12: Glucometer 239H A/P: Assessment: Cryptogenic stroke with right-sided weakness. MRI of 11/30/2019 revealed small acute to subacute ischemic infarct lateral aspect left thalamus with probable involvement posterior limb left internal capsule. Carotid duplex showed no evidence of stenosis S/p ILR on 12/03/19 Echo of 12/02/19: LVEF 55-65%, mildly dilated LA, PASP 35 mmHg HTN HLP DM- management per PCP Obesity Multiple risk factors for underling LAURA Plan: * I answered more of his and his 's CV-related questions * Continue current regimen and continue to monitor JANEEN HONG MD FACP [facility] Dec 05, 2019 10:40
--- NOTE | 2019-12-05 12:17 | PM&R Progress Note ---
Subjective HPI/CC On Admission Date Seen by Provider: Dec 05, 2019 Time Seen by Provider: 12:30 Subjective/Events-last exam Patient not sleeping well so will try to change out beds He is currently taking a long nap during my interview and exam reports that he is moving his right arm better and better just having right hand fine motor skills difficulty gets him up and around in the room without contacting nurse after multiple counseling attempts Sugars are improved Slept in chair last night Conferred with RN Reviewed therapy notes Check meds and labs Blood sugar checks monitored Review of Systems General: Fatigue Neurological: Weakness, Numbness, Incoordination Depression Objective Exam Vital Signs Vital Signs Date Time Temp Pulse Resp B/P (MAP) Pulse Ox O2 Delivery O2 Flow Rate FiO2 12/05/19 09:00 Room Air 12/05/19 05:03 36.7 68 20 128/75 (92) 95 Capillary Refill : Less Than 3 Seconds General Appearance: No Apparent Distress, WD/WN, Anxious HEENT: PERRL/EOMI, Normal ENT Inspection, Pharynx Normal Neck: Full Range of Motion, Normal Inspection, Non Tender, Supple, Carotid Bruit Respiratory: Chest Non Tender, Lungs Clear, Normal Breath Sounds, No Accessory Muscle Use, No Respiratory Distress Cardiovascular: Regular Rate, Rhythm, No Edema, No Gallop, No JVD, No Murmur, Normal Peripheral Pulses Gastrointestinal: Normal Bowel Sounds, No Organomegaly, No Pulsatile Mass, Non Tender, Soft Back: Normal Inspection, No CVA Tenderness, No Vertebral Tenderness Extremity: Normal Capillary Refill, Normal Inspection, Normal Range of Motion, Non Tender, No Calf Tenderness, No Pedal Edema Neurologic/Psychiatric: Alert, Oriented x3, Normal Mood/Affect, Aphasia (partial), Facial Droop (right), Motor Weakness (right arm and leg 2/5) Skin: Normal Color, Warm/Dry Lymphatic: No Adenopathy Results/Procedures Lab Patient resulted labs reviewed. FIM Transfers Therapy Code Descriptions/Definitions Functional [place] Measure: 0=Not Assessed/NA 4=Minimal Assistance 1=Total Assistance 5=Supervision or Setup 2=Maximal Assistance 6=Modified [place] 3=Moderate Assistance 7=Complete IndependenceSCALE: Activities may be completed with or without assistive devices. 2-Ioeiwtkkvn-dwbctla completes the activity by him/herself with no assistance from a helper. 5-Set-up or Clean-up Assistance-helper sets up or cleans up; patient completes activity. [place] assists only prior to or following the activity. 4-Supervision or Touching Assistance-helper provides verbal cues and/or touching/steadying and/or contact guard assistance as patient completes activity. Assistance may be provided throughout the activity or intermittently. 3-Partial/Moderate Assistance-helper does LESS THAN HALF the effort. [place] lifts, holds or supports trunk or limbs, but provides less than half the effort. 2-Substantial/Maximal Assistance-helper does MORE THAN HALF the effort. [place] lifts or holds trunk or limbs and provides more than half the effort. 5-Nfcemrzlb-phmkph does ALL the effort. Patient does none of the effort to complete the activity. Or, the assistance of 2 or more helpers is required for the patient to complete the activity. If activity was not attempted, code reason: 7-Patient Refused. 9-Not Applicable-not attempted and the patient did not perform the activity before the current illness, exacerbation or injury. 10-Not Attempted due to Environmental Limitations-(lack of equipment, weather restraints, etc.). 88-Not Attempted due to Medical Conditions or Safety Concerns. Roll Left to Right (QC): 6 Sit to Lying (QC): 6 Sit to Stand (QC): 5 (impulsive at times) Chair/Gjd-kc-Lkmdo Xfer(QC): 3 Car Transfer (QC): 3 Gait Training Does the Patient Walk?: Yes Distance: 200 x2 Walk 10 feet (QC): 4 Walk 50 ft with 2 Turns(QC): 4 Walk 150 ft (QC): 4 Walking 10ft/uneven surface-QC: 3 Gait Persons Needed: 1 Gait Assistive Device: None Wheelchair Training Does the Pt Use a Wheelchair?: No Stair Training Stair Training: Handrails/: 1 handrail (to encourage use of LUE) #of Steps: 16 1 Step (curb) (QC): 3 4 Steps (QC): 4 12 Steps (QC): 4 Stairs: Pattern: Reciprocal Balance Picking up an Object (QC): 88 ADL-Treatment Eating (QC): 2 (utilizing an additional built up handle, pt unable to maintain oceanologist strength to bring spoon to mouth. Pt given universal cuff, with proximal muscles stabilized in 90* scaption, and elbow stabilized by OT, pt able to bring spoon to mouth (flexing/ extending elbow). Pt educated on completing every 5 bites with R hand to encourage movement.) Oral Hygiene (QC): 7 Shower/Bathe Self (QC): 7 Upper Body Dressing (QC): 4 (SBA, with cues for safety as OT managed telemetry lines. Pt required increased time with task. ) Lower Body Dressing (QC): 4 (SBA, pt able to doff/don pants with increased time.) On/Off Footwear (QC): 5 (elastic shoe laces) Toileting Hygiene (QC): 4 (CGA during clothing management and hygiene) Assessment/Plan Assessment and Plan Assess & Plan/Chief Complaint Assessment: CVA with right sided weakness cryptogenic type s/p loop recorder by Dr Espino 12/03/19 Right facial droop HTN DM insulin dependence HGA1C 8.4 HLP HTG CRI likely DM nephropathy Situational depression Difficulty sleeping Plan: IRF protocol Cardiology consultation for risk stratification appreciated ASA High dose statin BM regimen Monitor BP Held metformin due to elevated creatinine on admit but restarted it since creat 1.2 Psych evaluation ordered and completed and appreciated Effexor if he allows to help situational depression which could limit his recovery Increase insulin Change out bed? (1) Hemiparesis affecting dominant side as late effect of cerebrovascular accident (2) CVA (cerebral vascular accident) (3) Facial paralysis on right side Status: Acute (4) HTN (hypertension) Status: Acute (5) IDDM (insulin dependent diabetes mellitus) Status: Acute (6) Slurred speech Status: Acute (7) Status post placement of implantable loop recorder (8) Cryptogenic stroke TOYA OLGUIN DO Dec 05, 2019 12:17
[2019-12-05 17:05] VITALS: BP 120/76
--- NOTE | 2019-12-05 17:55 | NUR ---
PATIENT UP WALKING WITH STAFF ASSIST X 2 TODAY. PATIENT CONTINUES TO WALK WITH HIS WITHOUT STAFF ASSIST, DESPITE REPEATED CONVERSATION ABOUT SAFETY AND THAT THERAPY HAS NOT CLEARED PATIENT TO WALK WITHOUT STAFF ASSIST. PATIENT FOUND TO BE GOING TO THE BATHROOM ALSO WITHOUT STAFF ASSIST. PATIENT C/O UNCOMFORTABLE BED, REFUSED OFFER TO HAVE BEDS SWITCHED OUT.
[2019-12-05] MEDS: FENOFIBRATE 134 MG (LOFIBRA) CAPSULE PO SCH (20:29)
[2019-12-06 05:00] VITALS: BP 100/64
[2019-12-06] MEDS: ENOXAPARIN 40 MG/0.4 ML (LOVENOX) SYR SC SCH ×2 (06:04→17:23)
[2019-12-06] MEDS: metFORMIN 500 MG (GLUCOPHAGE) TAB PO SCH (06:04)
[2019-12-06] MEDS: inSUlin ASPART (NovoLOG) 1 UNIT/0.01 ML (CHARGE PER UNIT) SC SCH ×3 (06:05→17:23)
[2019-12-06 06:31] LABS: BASOPHILS % (AUTO) 1 % (0-10); EOSINOPHILS # (AUTO) 0.4 10^3/uL (0.0-0.3); EOSINOPHILS % (AUTO) 5 % (0-10); HEMATOCRIT 42 % (40-54); HEMOGLOBIN 14.4 G/DL (13.3-17.7); LYMPHOCYTES # (AUTO) 2.5 X 10^3 (1.0-4.0); LYMPHOCYTES % (AUTO) 31 % (12-44); MEAN CORPUSCULAR HEMOGLOBIN 32 PG (25-34); MEAN CORPUSCULAR HGB CONC 34 G/DL (32-36); MEAN CORPUSCULAR VOLUME 92 FL (80-99); MEAN PLATELET VOLUME 10.5 FL (7.4-10.4); MONOCYTES # (AUTO) 0.7 X 10^3 (0.0-1.0); MONOCYTES % (AUTO) 9 % (0-12); NEUTROPHILS # (AUTO) 4.3 X 10^3 (1.8-7.8); NEUTROPHILS % (AUTO) 55 % (42-75); PLATELET COUNT 205 10^3/uL (130-400); RED CELL DISTRIBUTION WIDTH 13.4 % (10.0-14.5); WHITE BLOOD COUNT 7.9 10^3/uL (4.3-11.0)
[2019-12-06 06:51] LABS: BILIRUBIN,TOTAL 0.7 MG/DL (0.1-1.0); CALCIUM 9.2 MG/DL (8.5-10.1); CREATININE SERUM 1.28 MG/DL (0.60-1.30); POTASSIUM 4.6 MMOL/L (3.6-5.0); TOTAL PROTEIN 6.9 GM/DL (6.4-8.2)
--- NOTE | 2019-12-06 08:36 | Occupational Ther Daily Note ---
OT Current Status-Daily Note Subjective Pt seated upright in recliner putting shoes on. He did not verbalize any pain during tx. Pt states he feels like his hand is working better since he woke up this morning, demo'd ability to make fist using RUE. ADL-Treatment Therapy Code Descriptions/Definitions Functional [place] Measure: 0=Not Assessed/NA 4=Minimal Assistance 1=Total Assistance 5=Supervision or Setup 2=Maximal Assistance 6=Modified [place] 3=Moderate Assistance 7=Complete IndependenceSCALE: Activities may be completed with or without assistive devices. 8-Lphfbvmdvf-meqwxxh completes the activity by him/herself with no assistance from a helper. 5-Set-up or Clean-up Assistance-helper sets up or cleans up; patient completes activity. [place] assists only prior to or following the activity. 4-Supervision or Touching Assistance-helper provides verbal cues and/or touching/steadying and/or contact guard assistance as patient completes activity. Assistance may be provided throughout the activity or intermittently. 3-Partial/Moderate Assistance-helper does LESS THAN HALF the effort. [place] lifts, holds or supports trunk or limbs, but provides less than half the effort. 2-Substantial/Maximal Assistance-helper does MORE THAN HALF the effort. [place] lifts or holds trunk or limbs and provides more than half the effort. 1-Xgqusbldl-ywvpcu does ALL the effort. Patient does none of the effort to complete the activity. Or, the assistance of 2 or more helpers is required for the patient to complete the activity. If activity was not attempted, code reason: 7-Patient Refused. 9-Not Applicable-not attempted and the patient did not perform the activity before the current illness, exacerbation or injury. 10-Not Attempted due to Environmental Limitations-(lack of equipment, weather restraints, etc.). 88-Not Attempted due to Medical Conditions or Safety Concerns. Eating (QC): 6 (Per pt report.) Oral Hygiene (QC): 5 (set up, pt completes standing at sink) Shower/Bathe Self (QC): 7 (Pt declined task at this time) Upper Body Dressing (QC): 7 Lower Body Dressing (QC): 7 On/Off Footwear: 6 (Mod I - pt donned shoes with elastic laces) Other Treatment Pt seated in recliner, declined shower at this time stating he would rather complete this afternoon after therapy. OT informed pt she was unable to assist him this afternoon with a shower and encouraged him to take one at this time. Pt still declined showering/dressing. Pt agreed to brushing his teeth at the sink, then ambulated to therapy area no AD with close SBA. OT tx with focus on neuromuscular re-education in order to increase functional use RUE. Pt completed towel slides RUE x15 reps, 2 sets each of the following: shoulder flexion, scaption, and horizontal abduction. Pt then completed x5 reps assembler camper squeezes with red assembler camper sponge using RUE, 2 sets. Pt removed/placed graded clothespins (1-5 lbs), increased time required with task, noted pt utilized fist to place/remove clothespins. Pt removed beads from red theraputty in order to increase bilateral integration with tasks. Pt required cues to take rest breaks as needed and to not hold his breath with tasks throughout tx. Pt returned to his room. Post OT session, pt seated in recliner, call light in reach and all needs met. Education OT Patient Education: Correct positioning, Energy conservation, Exercise program, Modified ADL techniques, Progress toward Goal/Update tx plan, Purpose of tx/functional activities Teaching Recipient: Patient Teaching Methods: Discussion Response to Teaching: Verbalize Understanding OT Jail Goals Jail Goals Time Frame: Dec 17, 2019 Eating (QC): 6 Oral Hygiene (QC): 6 Toileting Hygiene (QC): 6 Shower/Bathe Self (QC): 6 Upper Body Dressing (QC): 6 Lower Body Dressing (QC): 6 On/Off Footwear (QC): 6 Additional Goals: 1-Demonstrate ADL Tasks, 2-Verbalize Understanding, 3- ImproveStrength/Jamel 1=Demonstrate adherence to instructed precautions during ADL tasks. 2=Patient will verbalize/demonstrate understanding of assistive devices/modifications for ADL. 3=Patient will improve strength/tolerance for activity to enable patient to perform ADL's. OT Education/Plan Problem List/Assessment Assessment: Decreased Activ Tolerance, Decreased UE Strength, Impaired I ADL's, Impaired Self-Care Skills, Restricted Funct UE ROM Discharge Recommendations Plan/Recommendations: Continue POC Treatment Plan/Plan of Care Patient would benefit from OT for education, treatment and training to promote independence in ADL's, mobility, safety and/or upper extremity function for ADL's. Plan of Care: ADL Retraining, Functional Mobility, Group Exercise/Act as Ind, UE Funct Exercise/Act Treatment Duration: Dec 17, 2019 Frequency: At least 5 of 7 days/Wk (IRF) Estimated Hrs Per Day: .25 hour per day Rehab Potential: Good Time/GCodes Start Time: 08:00 Stop Time: 09:15 Total Time Billed (hr/min): 75 Billed Treatment Time 1, ADL (10'), NM 4 (65') MIGNON SANDERSON OT Dec 06, 2019 08:36
[2019-12-06] MEDS: ASPIRIN E.C. 81 MG (ECOTRIN) TAB PO SCH (08:43)
[2019-12-06] MEDS: polyethylene glycoL POWDER 17 GM (MIRALAX) PACK PO SCH ×2 (08:43→20:36)
[2019-12-06] MEDS: amLODIPine 5 MG (NORVASC) TAB PO SCH (08:43)
[2019-12-06] MEDS: SENNA W/DOCUSATE (SENOKOT S) TABLET PO SCH ×2 (08:43→20:37)
[2019-12-06] MEDS: lisINopril 40 MG (PRINIVIL) TABLET PO SCH (08:43)
[2019-12-06] MEDS: DOCUSATE SODIUM 100 MG (COLACE) CAP PO SCH ×2 (08:44→20:36)
--- NOTE | 2019-12-06 08:55 | PM&R Progress Note ---
Subjective HPI/CC On Admission Date Seen by Provider: Dec 06, 2019 Time Seen by Provider: 09:15 Subjective/Events-last exam Depression is noted but certainly appears more of a chronic issue with acute flare from CVA but still declines meds and I will not summer counselor him anymore with that issue Lifting arm more and more and gaining strength No cane needed when he walks now BM today wbc now normal Conferred with RN Reviewed therapy notes Check meds and labs Blood sugar checks monitored Review of Systems Neurological: Weakness, Numbness, Incoordination Depression Objective Exam Vital Signs Vital Signs Date Time Temp Pulse Resp B/P (MAP) Pulse Ox O2 Delivery O2 Flow Rate FiO2 12/06/19 17:54 36.8 85 18 129/77 (94) 95 Room Air Capillary Refill : Less Than 3 Seconds General Appearance: No Apparent Distress, WD/WN, Anxious HEENT: PERRL/EOMI, Normal ENT Inspection, Pharynx Normal Neck: Full Range of Motion, Normal Inspection, Non Tender, Supple, Carotid Bruit Respiratory: Chest Non Tender, Lungs Clear, Normal Breath Sounds, No Accessory Muscle Use, No Respiratory Distress Cardiovascular: Regular Rate, Rhythm, No Edema, No Gallop, No JVD, No Murmur, Normal Peripheral Pulses Gastrointestinal: Normal Bowel Sounds, No Organomegaly, No Pulsatile Mass, Non Tender, Soft Back: Normal Inspection, No CVA Tenderness, No Vertebral Tenderness Extremity: Normal Capillary Refill, Normal Inspection, Normal Range of Motion, Non Tender, No Calf Tenderness, No Pedal Edema Neurologic/Psychiatric: Alert, Oriented x3, Normal Mood/Affect, Aphasia (partial), Facial Droop (right), Motor Weakness (right arm and leg 2/5) Skin: Normal Color, Warm/Dry Lymphatic: No Adenopathy Results/Procedures Lab Laboratory Tests 12/06/19 06:10 Patient resulted labs reviewed. FIM Transfers Therapy Code Descriptions/Definitions Functional [place] Measure: 0=Not Assessed/NA 4=Minimal Assistance 1=Total Assistance 5=Supervision or Setup 2=Maximal Assistance 6=Modified [place] 3=Moderate Assistance 7=Complete IndependenceSCALE: Activities may be completed with or without assistive devices. 0-Kyduzdoqnz-jigyolp completes the activity by him/herself with no assistance from a helper. 5-Set-up or Clean-up Assistance-helper sets up or cleans up; patient completes activity. [place] assists only prior to or following the activity. 4-Supervision or Touching Assistance-helper provides verbal cues and/or touchin g/steadying and/or contact guard assistance as patient completes activity. Assistance may be provided throughout the activity or intermittently. 3-Partial/Moderate Assistance-helper does LESS THAN HALF the effort. [place] lifts, holds or supports trunk or limbs, but provides less than half the effort. 2-Substantial/Maximal Assistance-helper does MORE THAN HALF the effort. [place] lifts or holds trunk or limbs and provides more than half the effort. 7-Upyryjsdd-enoatu does ALL the effort. Patient does none of the effort to complete the activity. Or, the assistance of 2 or more helpers is required for the patient to complete the activity. If activity was not attempted, code reason: 7-Patient Refused. 9-Not Applicable-not attempted and the patient did not perform the activity before the current illness, exacerbation or injury. 10-Not Attempted due to Environmental Limitations-(lack of equipment, weather restraints, etc.). 88-Not Attempted due to Medical Conditions or Safety Concerns. Roll Left to Right (QC): 6 Sit to Lying (QC): 6 Sit to Stand (QC): 5 (impulsive at times) Chair/Dlw-er-Rvnpr Xfer(QC): 3 Car Transfer (QC): 3 Gait Training Does the Patient Walk?: Yes Distance: 200 x2 Walk 10 feet (QC): 4 Walk 50 ft with 2 Turns(QC): 4 Walk 150 ft (QC): 4 Walking 10ft/uneven surface-QC: 3 Gait Persons Needed: 1 Gait Assistive Device: None Wheelchair Training Does the Pt Use a Wheelchair?: No Stair Training Stair Training: Handrails/: 1 handrail (to encourage use of LUE) #of Steps: 16 1 Step (curb) (QC): 3 4 Steps (QC): 4 12 Steps (QC): 4 Stairs: Pattern: Reciprocal Balance Picking up an Object (QC): 88 ADL-Treatment Eating (QC): 6 (Per pt report.) Oral Hygiene (QC): 5 (set up, pt completes standing at sink) Shower/Bathe Self (QC): 7 (Pt declined task at this time) Upper Body Dressing (QC): 7 Lower Body Dressing (QC): 7 On/Off Footwear (QC): 6 (Mod I - pt donned shoes with elastic laces) Toileting Hygiene (QC): 4 (CGA during clothing management and hygiene) Assessment/Plan Assessment and Plan Assess & Plan/Chief Complaint Assessment: CVA with right sided weakness cryptogenic type s/p loop recorder by Dr Espino 12/03/19 Right facial droop HTN DM insulin dependence HGA1C 8.4 HLP HTG CRI likely DM nephropathy Situational depression declines medication treatment Difficulty sleeping appears improved Plan: IRF protocol Cardiology consultation for risk stratification appreciated ASA High dose statin BM regimen Monitor BP Held metformin due to elevated creatinine on admit but restarted it since creat 1.2 Psych evaluation ordered and completed and appreciated Effexor if he allows to help situational depression which could limit his brett very but declines offer Increased insulin (1) Hemiparesis affecting dominant side as late effect of cerebrovascular accident (2) CVA (cerebral vascular accident) (3) Facial paralysis on right side Status: Acute (4) HTN (hypertension) Status: Acute (5) IDDM (insulin dependent diabetes mellitus) Status: Acute (6) Slurred speech Status: Acute (7) Status post placement of implantable loop recorder (8) Cryptogenic stroke TOYA OLGUIN DO Dec 06, 2019 08:55
--- NOTE | 2019-12-06 11:31 | Speech Therapy Daily Note ---
Speech Daily Progress Note Subjective Date Seen by Provider: Dec 06, 2019 Time Seen by Provider: 00:30 Patient stated he was feeling better and had a good weekend. was present for the entire session. Objective Patient completed general information q/a with 80% accuracy and fill in the blan k with 85% accuracy given minimal cues. Assessment Assessment Current Status: Good Progress Treatment Plan Continue Plan of Care Speech Short Term Goals Short Term Goals Short Term Goals 1) Patient will complete memory tasks related to his daily needs with 90% or greater. 2) Patient will complete safety awareness tasks related to his daily needs with 90% or greater. 3) Patient will complete problem solving tasks related to his daily needs with 90% or greater. 4) Patient will complete oral motor exercises with 90% or greater. Speech Assisted Goals Assisted Goals Patient will improve cognitive and speech production to prior level at 90% or greater. Speech-Plan Patient/Family Goals Patient/Family Goals: Patient plans on returning home with his family upon rehab discharge. Treatment Plan Speech Therapy Treatment Plan: Continue Plan of Care Treatment Duration: Dec 02, 2019 Frequency: Modified Program (IRF) Estimated Hrs Per Day: .5 hour per day Rehab Potential: Good Barriers to Learning: Patient's recent CVA Safety Risks/Education Teaching Recipient: Patient, Significant Other Teaching Methods: Demonstration, Discussion Response to Teaching: Verbalize Understanding, Return Demonstration Education Topics Provided: Continued safety and communication of wants/needs Time Speech Therapy Time In: 10:00 Speech Therapy Time Out: 10:30 Total Billed Time: 30 Billed Treatment Time [address] Dec 06, 2019 11:31
--- NOTE | 2019-12-06 13:06 | Physical Therapy Daily Note ---
PT Daily Note-Current Subjective Pt agreeable to PT session. Pain Numeric Pain Scale: 0-No Pain Comment: pt c/o brief minimal pain R shldr picking up and holding heavier object Appearance Before and after therapy session, pt sitting up in recliner with call light, phone and bedside table within reach. Pt's present during entire tx session Mental Status Patient Orientation: Normal For Age Transfers SCALE: Activities may be completed with or without assistive devices. 5-Mkrmirohbo-vamkujc completes the activity by him/herself with no assistance from a helper. 5-Set-up or Clean-up Assistance-helper sets up or cleans up; patient completes activity. [place] assists only prior to or following the activity. 4-Supervision or Touching Assistance-helper provides verbal cues and/or touching/steadying and/or contact guard assistance as patient completes activity. Assistance may be provided throughout the activity or intermittently. 3-Partial/Moderate Assistance-helper does LESS THAN HALF the effort. [place] lifts, holds or supports trunk or limbs, but provides less than half the effort. 2-Substantial/Maximal Assistance-helper does MORE THAN HALF the effort. [place] lifts or holds trunk or limbs and provides more than half the effort. 6-Vhuzgkwvd-sqyanp does ALL the effort. Patient does none of the effort to complete the activity. Or, the assistance of 2 or more helpers is required for the patient to complete the activity. If activity was not attempted, code reason: 7-Patient Refused. 9-Not Applicable-not attempted and the patient did not perform the activity be fore the current illness, exacerbation or injury. 10-Not Attempted due to Environmental Limitations-(lack of equipment, weather restraints, etc.). 88-Not Attempted due to Medical Conditions or Safety Concerns. Sit to Stand (QC): 5 Gait Training Does the Patient Walk?: Yes Distance: >1000 ft total Walk 10 feet (QC): 4 Walk 50 ft with 2 Turns(QC): 4 Walk 150 ft (QC): 4 Gait Persons Needed: 1 Gait Assistive Device: None occasional path deviation, trace decreased stance time RLE, decreased RLE step height and heel strike Wheelchair Training Does the Pt Use a Wheelchair?: No Neuromuscular 45 min with x5 sitting rest breaks and x5 unsteady episodes self corrected: gait stop go, quick turns L and R, 360 deg turns L and R, tight spaces, moving chairs, tandem gait, lateral gait, scissor walking gait, toe walking, heel walking. Placed 3# ankle wts on pt and performed stepping over objects of various heights and depths noting increased difficulty with larger bolsters, weaving through cones and bolsters while socker dribbling small ball, picking up cones from floor by color and holding in R hand (dropped x4 times), picking up bolster rolls and carrying with BUE's (report of slight brief pains in R ant shoulder, states bicep is not attached from years ago). Wts removed from ankles. In // bars attempting WB through RUE only: standing on air disc BLE's then unilat LE's, standing on PVC pipe rolling fwd and bkwd (heel/toe) then log rolling on it with encouragement to increase step length with RLE. Gt while holding ex ball out in front with stop/go, turns, through small spaces Assessment Current Status: Good Progress PT Short Term Goals Short Term Goals Time Frame: Dec 09, 2019 Roll Left & Right: 5 Sit to lyin Lying to sitting on side of be: 5 Sit to stand: 5 Chair/egu-wg-qqhpq transfer: 5 Toilet transfer: 5 Car transfer: 4 Walk 10 feet: 4 Walk 50 feet with two turns: 4 Walk 150 feet: 4 Walking 10ft on uneven surface: 4 1 step (curb): 4 4 steps: 4 12 steps: 4 PT Mcc Goals Mcc Goals PT Continuous Loft Operator Goals Time Frame: Dec 23, 2019 Roll Left & Right (QC): 6 Sit to Lying (QC): 6 Lying-Sitting on Side/Bed(QC): 6 Sit to Stand (QC): 6 Chair/Wzn-rn-Ozbev Xfer(QC): 6 Toilet Transfer (QC): 6 Car Transfer (QC): 6 Does the Patient Walk: Yes Walk 10 feet (QC): 6 Walk 50ft with 2 Turns (QC): 6 Walk 150 ft (QC): 6 Walking 10ft on Uneven Surface: 6 1 Step (curb) (QC): 6 4 Steps (QC): 6 12 Steps (QC): 6 Picking up an Object (QC): 6 Does the Pt use WC or Scooter?: No Wheel 50 feet with 2 turns (QC: 9 Wheel 150 feet: 9 PT Plan Treatment/Plan Treatment Plan: Continue Plan of Care Treatment Plan: Bed Mobility, Education, Functional Activity Jamel, Functional Strength, Group Therapy, Gait, Safety, Therapeutic Exercise, Transfers Treatment Duration: Dec 23, 2019 Frequency: At least 5 of 7 days/Wk (IRF) Estimated Hrs Per Day: 1.5 hours per day Patient and/or Family Agrees t: Yes Safety Risks/Education Patient Education: Gait Training, Transfer Techniques, Reviewed Precautions, Disease Process, Safety Issues Teaching Recipient: Patient Teaching Methods: Demonstration, Discussion Response to Teaching: Verbalize Understanding, Return Demonstration Time/GCodes Time In: 1055 Time Out: 1155 Total Billed Treatment Time: 60 Total Billed Treatment 1 visit, GT x15 min, NM x45 min SHY BRAVO PTA Dec 06, 2019 13:06
--- NOTE | 2019-12-06 13:16 | NUR ---
CM/SS CONCURRENT DOCUMENTATION Met with patient's spouse Kenzie Froilan Friday afternoon to inform that hospital would likely transition to a no visitor status Friday due to [id number] mandates. Met with patient and spouse this a.m., Kenzie will adhere to mandate for no visitors and will be leaving at noon. Provided hospital handout regarding ways to continue to connect electronically during this time. The team agree that spousal presence has been an integral part of patient's progress. Anticipating that patient would desire discharge home if spouse is absent, promotion writer encouraged patient/spouse for continued participation with therapy team to maximum potential prior to release. Kenzie had [facility] paperwork, promotion writer to assist to complete with physician for submitting. Will continue in partnership with patient and spouse regarding all post hospital matters.
--- NOTE | 2019-12-06 14:13 | Physical Therapy Daily Note ---
PT Daily Note-Current Subjective Pt agreeable to PT session. States he is a little tired from this morning's session, but doing ok. Pain Numeric Pain Scale: 0-No Pain Appearance Pt sitting up in recliner before and after therapy session, call light, phone and bedside table within reach Mental Status Patient Orientation: Normal For Age Transfers SCALE: Activities may be completed with or without assistive devices. 0-Jwomdyebyx-wbeikvx completes the activity by him/herself with no assistance from a helper. 5-Set-up or Clean-up Assistance-helper sets up or cleans up; patient completes activity. [place] assists only prior to or following the activity. 4-Supervision or Touching Assistance-helper provides verbal cues and/or touching/steadying and/or contact guard assistance as patient completes activity. Assistance may be provided throughout the activity or intermittently. 3-Partial/Moderate Assistance-helper does LESS THAN HALF the effort. [place] lifts, holds or supports trunk or limbs, but provides less than half the effort. 2-Substantial/Maximal Assistance-helper does MORE THAN HALF the effort. [place] lifts or holds trunk or limbs and provides more than half the effort. 3-Jjdxnfzyc-eidqon does ALL the effort. Patient does none of the effort to complete the activity. Or, the assistance of 2 or more helpers is required for the patient to complete the activity. If activity was not attempted, code reason: 7-Patient Refused. 9-Not Applicable-not attempted and the patient did not perform the activity before the current illness, exacerbation or injury. 10-Not Attempted due to Environmental Limitations-(lack of equipment, weather restraints, etc.). 88-Not Attempted due to Medical Conditions or Safety Concerns. Sit to Stand (QC): 5 Gait Training Does the Patient Walk?: Yes Distance: 200, 100 Walk 10 feet (QC): 4 Walk 50 ft with 2 Turns(QC): 4 Walk 150 ft (QC): 4 Gait Persons Needed: 1 Gait Assistive Device: None fair pace, no LOB Wheelchair Training Does the Pt Use a Wheelchair?: No Exercises NuStep Minutes: 17 NuStep Workload: 4 (with R hand strap due to RUE flaccidity) Treatments education, safety, transfers, balance, strength, activity tolerance, functional mobility, gait Assessment Current Status: Good Progress PT Short Term Goals Short Term Goals Time Frame: Dec 09, 2019 Roll Left & Right: 5 Sit to lyin Lying to sitting on side of be: 5 Sit to stand: 5 Chair/hsx-nr-vbewx transfer: 5 Toilet transfer: 5 Car transfer: 4 Walk 10 feet: 4 Walk 50 feet with two turns: 4 Walk 150 feet: 4 Walking 10ft on uneven surface: 4 1 step (curb): 4 4 steps: 4 12 steps: 4 PT Tumbler Machine Operator Helper Goals Tumbler Machine Operator Helper Goals PT Detention Goals Time Frame: Dec 23, 2019 Roll Left & Right (QC): 6 Sit to Lying (QC): 6 Lying-Sitting on Side/Bed(QC): 6 Sit to Stand (QC): 6 Chair/Bpx-rq-Zrslh Xfer(QC): 6 Toilet Transfer (QC): 6 Car Transfer (QC): 6 Does the Patient Walk: Yes Walk 10 feet (QC): 6 Walk 50ft with 2 Turns (QC): 6 Walk 150 ft (QC): 6 Walking 10ft on Uneven Surface: 6 1 Step (curb) (QC): 6 4 Steps (QC): 6 12 Steps (QC): 6 Picking up an Object (QC): 6 Does the Pt use WC or Scooter?: No Wheel 50 feet with 2 turns (QC: 9 Wheel 150 feet: 9 PT Plan Treatment/Plan Treatment Plan: Continue Plan of Care Treatment Plan: Bed Mobility, Education, Functional Activity Jamel, Functional Strength, Group Therapy, Gait, Safety, Therapeutic Exercise, Transfers Treatment Duration: Dec 23, 2019 Frequency: At least 5 of 7 days/Wk (IRF) Estimated Hrs Per Day: 1.5 hours per day Patient and/or Family Agrees t: Yes Safety Risks/Education Patient Education: Gait Training, Transfer Techniques, Reviewed Precautions, Safety Issues Teaching Recipient: Patient Teaching Methods: Demonstration, Discussion Response to Teaching: Verbalize Understanding, Return Demonstration Time/GCodes Time In: 1305 Time Out: 1330 Total Billed Treatment Time: 25 Total Billed Treatment 1 visit, GT x8 min, EX x17 min SHY BRAVO PTA Dec 06, 2019 14:13
[2019-12-06 17:54] VITALS: BP 129/77
[2019-12-06] MEDS: FENOFIBRATE 134 MG (LOFIBRA) CAPSULE PO SCH (20:36)
[2019-12-07 05:01] VITALS: BP 122/74
[2019-12-07] MEDS: metFORMIN 500 MG (GLUCOPHAGE) TAB PO SCH (06:21)
[2019-12-07] MEDS: inSUlin ASPART (NovoLOG) 1 UNIT/0.01 ML (CHARGE PER UNIT) SC SCH ×3 (06:21→17:14)
[2019-12-07] MEDS: ENOXAPARIN 40 MG/0.4 ML (LOVENOX) SYR SC SCH (06:21)
[2019-12-07 09:00] VITALS: BP 110/73
--- NOTE | 2019-12-07 09:08 | Physical Therapy Daily Note ---
PT Daily Note-Current Subjective Pt agreeable to PT session. States he feels therapy is working on a lot of things he needs work on. Pain Numeric Pain Scale: 0-No Pain Appearance Before and after therapy session, pt sitting up in recliner with call light, phone and bedside table within reach Mental Status Patient Orientation: Normal For Age Transfers SCALE: Activities may be completed with or without assistive devices. 3-Tgubmpqszw-pqasqol completes the activity by him/herself with no assistance from a helper. 5-Set-up or Clean-up Assistance-helper sets up or cleans up; patient completes activity. [place] assists only prior to or following the activity. 4-Supervision or Touching Assistance-helper provides verbal cues and/or touching/steadying and/or contact guard assistance as patient completes activity. Assistance may be provided throughout the activity or intermittently. 3-Partial/Moderate Assistance-helper does LESS THAN HALF the effort. [place] lifts, holds or supports trunk or limbs, but provides less than half the effort. 2-Substantial/Maximal Assistance-helper does MORE THAN HALF the effort. [place] lifts or holds trunk or limbs and provides more than half the effort. 3-Spqxnzbli-pggusm does ALL the effort. Patient does none of the effort to complete the activity. Or, the assistance of 2 or more helpers is required for the patient to complete the activity. If activity was not attempted, code reason: 7-Patient Refused. 9-Not Applicable-not attempted and the patient did not perform the activity before the current illness, exacerbation or injury. 10-Not Attempted due to Environmental Limitations-(lack of equipment, weather restraints, etc.). 88-Not Attempted due to Medical Conditions or Safety Concerns. Roll Left & Right (QC): 6 Sit to Lying (QC): 6 Lying to Sitting/Side of Bed(Q: 6 Sit to Stand (QC): 6 Chair/Rsx-zj-Npvml Xfer(QC): 6 Toilet Transfer (QC): 6 Car Transfer (QC): 6 Pt demonstrating good balance with all transitions, continues to lack most movements and control of RUE Gait Training Does the Patient Walk?: Yes Distance: 350, 200 Walk 10 feet (QC): 6 Walk 50 ft with 2 Turns(QC): 6 Walk 150 ft (QC): 6 Walking 10ft/uneven surface-QC: 6 Gait Persons Needed: 1 Gait Assistive Device: None no unsteadiness of LOB Wheelchair Training Does the Pt Use a Wheelchair?: No Stair Training Stair Training: Handrails/: No handrail #of Steps: 40 1 Step (curb) (QC): 6 4 Steps (QC): 6 12 Steps (QC): 6 Stairs: Pattern: Reciprocal caught heel on step x1 episode toward end of 20 steps self corrected Neuromuscular picking up objects off of floor and carrying to various height surfaces, quadruped with alt LE extensions requiring A to stabilize at RUE with pt c'/o of B wrists are bad and hurting, gait without AD on uneven surface with objects placed under mat to increase difficulty, standing on bolster roll with BLE attemting to control DF PF, standing with feet on seperate bolster rolls sumultaneous with BLE's then opposite DF PF, SLS each LE on bolster roll working on inv/ev, sitting then standing working on RLE control with foot on ball DF PF Inv EV and CW and CCW circles, walking up very soft padded ramp and stepping down onto airex balance pad all leading with RLE Treatments education, safety, bed mob, transfers, gait, balance, strength, neuro, activity tolerance, functional mobility, stairs Assessment Current Status: Good Progress PT Short Term Goals Short Term Goals Time Frame: Dec 09, 2019 Roll Left & Right: 5 Sit to lyin Lying to sitting on side of be: 5 Sit to stand: 5 Chair/opt-zc-upwzh transfer: 5 Toilet transfer: 5 Car transfer: 4 Walk 10 feet: 4 Walk 50 feet with two turns: 4 Walk 150 feet: 4 Walking 10ft on uneven surface: 4 1 step (curb): 4 4 steps: 4 12 steps: 4 PT Manager Of Community Relations Goals Detention Goals PT Manager Of Community Relations Goals Time Frame: Dec 23, 2019 Roll Left & Right (QC): 6 Sit to Lying (QC): 6 Lying-Sitting on Side/Bed(QC): 6 Sit to Stand (QC): 6 Chair/Xqe-ht-Aiwvz Xfer(QC): 6 Toilet Transfer (QC): 6 Car Transfer (QC): 6 Does the Patient Walk: Yes Walk 10 feet (QC): 6 Walk 50ft with 2 Turns (QC): 6 Walk 150 ft (QC): 6 Walking 10ft on Uneven Surface: 6 1 Step (curb) (QC): 6 4 Steps (QC): 6 12 Steps (QC): 6 Picking up an Object (QC): 6 Does the Pt use WC or Scooter?: No Wheel 50 feet with 2 turns (QC: 9 Wheel 150 feet: 9 PT Plan Treatment/Plan Treatment Plan: Continue Plan of Care Treatment Plan: Bed Mobility, Education, Functional Activity Jamel, Functional Strength, Group Therapy, Gait, Safety, Therapeutic Exercise, Transfers Treatment Duration: Dec 23, 2019 Frequency: At least 5 of 7 days/Wk (IRF) Estimated Hrs Per Day: 1.5 hours per day Patient and/or Family Agrees t: Yes Safety Risks/Education Patient Education: Gait Training, Transfer Techniques, Steps, Reviewed Precautions, Correct Positioning, Disease Process, Safety Issues Teaching Recipient: Patient Teaching Methods: Demonstration, Discussion Response to Teaching: Verbalize Understanding, Return Demonstration Discharge Recommendations Therapy Discharge Recommendati: Home & Family Time/GCodes Time In: 800 Time Out: 900 Total Billed Treatment Time: 60 Total Billed Treatment 1 visit, GT x15 min, NM x45 min SHY BRAVO PTA Dec 07, 2019 09:08
[2019-12-07] MEDS: DOCUSATE SODIUM 100 MG (COLACE) CAP PO SCH ×2 (09:11→21:15)
[2019-12-07] MEDS: SENNA W/DOCUSATE (SENOKOT S) TABLET PO SCH ×2 (09:12→21:15)
[2019-12-07] MEDS: polyethylene glycoL POWDER 17 GM (MIRALAX) PACK PO SCH ×2 (09:12→21:15)
[2019-12-07] MEDS: amLODIPine 5 MG (NORVASC) TAB PO SCH (09:15)
[2019-12-07] MEDS: lisINopril 40 MG (PRINIVIL) TABLET PO SCH (09:15)
[2019-12-07] MEDS: ASPIRIN E.C. 81 MG (ECOTRIN) TAB PO SCH (09:15)
--- NOTE | 2019-12-07 09:30 | Occupational Ther Daily Note ---
OT Current Status-Daily Note Subjective Pt seen in recliner chair post-PT. Pt agreeable to OT tx session. Pt expresses desire to go home. QCs gathered on this date Mental Status/Objective Patient Orientation: Person, Place, Situation ADL-Treatment Therapy Code Descriptions/Definitions Functional [place] Measure: 0=Not Assessed/NA 4=Minimal Assistance 1=Total Assistance 5=Supervision or Setup 2=Maximal Assistance 6=Modified [place] 3=Moderate Assistance 7=Complete IndependenceSCALE: Activities may be completed with or without assistive devices. 7-Pfmbearcri-kkuzykd completes the activity by him/herself with no assistance from a helper. 5-Set-up or Clean-up Assistance-helper sets up or cleans up; patient completes activity. [place] assists only prior to or following the activity. 4-Supervision or Touching Assistance-helper provides verbal cues and/or touching/steadying and/or contact guard assistance as patient completes activity. Assistance may be provided throughout the activity or intermittently. 3-Partial/Moderate Assistance-helper does LESS THAN HALF the effort. [place] lifts, holds or supports trunk or limbs, but provides less than half the effort. 2-Substantial/Maximal Assistance-helper does MORE THAN HALF the effort. [place] lifts or holds trunk or limbs and provides more than half the effort. 1-Wbeqjwtmb-tyslks does ALL the effort. Patient does none of the effort to complete the activity. Or, the assistance of 2 or more helpers is required for the patient to complete the activity. If activity was not attempted, code reason: 7-Patient Refused. 9-Not Applicable-not attempted and the patient did not perform the activity before the current illness, exacerbation or injury. 10-Not Attempted due to Environmental Limitations-(lack of equipment, weather restraints, etc.). 88-Not Attempted due to Medical Conditions or Safety Concerns. Eating (QC): 5 (use of universal cuff for R hand, states gets "mad" and uses L. Pt educated on stress management techniques. Pt requires s/u for cutting.) Oral Hygiene (QC): 6 (Pt completes with IND. Education of one handed technique for toothpaste management.) Bathing Location: L Arm, R Arm, L Upper Leg, R Upper Leg, L Lower Leg (including foot), R Lower Leg (including foot), Chest, Abdomen, Buttocks, Perineal Area Shower/Bathe Self (QC): 4 (Pt completes in standing with SUP. Based on pt's balance and activity level/ safety awareness, pt could complete this with IND at home) Upper Body Dressing (QC): 6 Lower Body Dressing (QC): 6 On/Off Footwear: 6 Toileting Hygiene (QC): 6 Toilet Transfer (QC): 6 Other Treatment Pt states has not slept well, desires to go home. Pt expresses he has only been able to talk to children by phone, pt has flat affect through session. Per PT, pt was flat prior to CVA per pt's 's report. Pt agrees to showering/ QCs on this date as above. Minimal cues for one handed techniques for ease though pt completes with IND. Pt ambulates without AE and good balance to therapy gym. HEP completed in detail. With mirror placed in front of pt for increased visual feedback, pt completes AROM of all joints (cues for positions in gravity eliminated for ease of movement.) pt completes, states does not need a printed HEP as he can remember. Pt gets on ground/ mat and is able to WB through BUE, then just RUE with SBA. Pt able to complete and hold for 15 sec. Pt then completes LUE WB and raises RUE to 90* shoulder flexion with min tactile cues, pt able to hold with min A. Pt requires cues for deep breathing. Pt able to stand from quadruped position with SBA. Pt completes cone manipulation (crossing midline, reaching with L/ R and grasping, and transferring hand to hand). Pt requires moderate cues throughout, education of many short/ 5-min bursts of exercises with breaks in between throughout day for maximal neural reorganization. Pt nods in understanding. States fatigue. pt completes tub/ shower transfer with use of grab bars. Pt completes once more without gb, returns to room, call light in reach. Pt denies needs. Education OT Patient Education: Exercise program, Home exercise program, Modified ADL techniques, Safety issues Teaching Recipient: Patient Teaching Methods: Demonstration, Discussion Response to Teaching: Verbalize Understanding, Return Demonstration OT Residential Goals Residential Goals Time Frame: Dec 17, 2019 Eating (QC): 6 Oral Hygiene (QC): 6 (met) Toileting Hygiene (QC): 6 (met) Shower/Bathe Self (QC): 6 (met) Upper Body Dressing (QC): 6 (met) Lower Body Dressing (QC): 6 (met) On/Off Footwear (QC): 6 (met) Additional Goals: 1-Demonstrate ADL Tasks, 2-Verbalize Understanding, 3-ImproveStrength/Jamle 1=Demonstrate adherence to instructed precautions during ADL tasks. 2=Patient will verbalize/demonstrate understanding of assistive devices/modifications for ADL. 3=Patient will improve strength/tolerance for activity to enable patient to perform ADL's. OT Education/Plan Problem List/Assessment Assessment: Decreased UE Strength, Impaired Coordination, Impaired I ADL's, Impaired Self-Care Skills, Restricted Funct UE ROM Discharge Recommendations Plan/Recommendations: Continue POC Therapy Discharge Recommendati: Intermittent Supervision, Home & Family, Post Acute OT Equpiment Recommendations-D/C: Rails on Tub/Shower Treatment Plan/Plan of Care Treatment,Training & Education: Yes Patient would benefit from OT for education, treatment and training to promote independence in ADL's, mobility, safety and/or upper extremity function for ADL's. Plan of Care: ADL Retraining, Functional Mobility, Group Exercise/Act as Ind, UE Funct Exercise/Act Treatment Duration: Dec 17, 2019 Frequency: At least 5 of 7 days/Wk (IRF) Estimated Hrs Per Day: .25 hour per day Rehab Potential: Good Time/GCodes Start Time: 09:00 Stop Time: 10:30 Total Time Billed (hr/min): 90 Billed Treatment Time 1, ADL 2 (30), NM 4 (60)= 90 LAM JAIME OTR Dec 07, 2019 09:30
--- NOTE | 2019-12-07 12:36 | PM&R Progress Note ---
Subjective HPI/CC On Admission Date Seen by Provider: Dec 07, 2019 Time Seen by Provider: 09:30 Subjective/Events-last exam Wants DC tomorrow Patient participating in therapies No pain is reported Sugars improved Conferred with RN Reviewed therapy notes Check meds and labs Blood sugar checks monitored Review of Systems General: Fatigue Neurological: Weakness, Numbness, Incoordination Depression Objective Exam Vital Signs Vital Signs Date Time Temp Pulse Resp B/P (MAP) Pulse Ox O2 Delivery O2 Flow Rate FiO2 12/07/19 20:10 Room Air 12/07/19 18:15 37.1 83 18 124/72 (89) 96 Capillary Refill : Less Than 3 Seconds General Appearance: No Apparent Distress, WD/WN, Anxious HEENT: PERRL/EOMI, Normal ENT Inspection, Pharynx Normal Neck: Full Range of Motion, Normal Inspection, Non Tender, Supple, Carotid Bruit Respiratory: Chest Non Tender, Lungs Clear, Normal Breath Sounds, No Accessory Muscle Use, No Respiratory Distress Cardiovascular: Regular Rate, Rhythm, No Edema, No Gallop, No JVD, No Murmur, Normal Peripheral Pulses Gastrointestinal: Normal Bowel Sounds, No Organomegaly, No Pulsatile Mass, Non Tender, Soft Back: Normal Inspection, No CVA Tenderness, No Vertebral Tenderness Extremity: Normal Capillary Refill, Normal Inspection, Normal Range of Motion, Non Tender, No Calf Tenderness, No Pedal Edema Neurologic/Psychiatric: Alert, Oriented x3, Normal Mood/Affect, Aphasia (partial), Facial Droop (right), Motor Weakness (right arm and leg 2/5) Skin: Normal Color, Warm/Dry Lymphatic: No Adenopathy Results/Procedures Lab Patient resulted labs reviewed. FIM Transfers Therapy Code Descriptions/Definitions Functional [place] Measure: 0=Not Assessed/NA 4=Minimal Assistance 1=Total Assistance 5=Supervision or Setup 2=Maximal Assistance 6=Modified [place] 3=Moderate Assistance 7=Complete IndependenceSCALE: Activities may be completed with or without assistive devices. 2-Hegnrrqogv-obxykkw completes the activity by him/herself with no assistance from a helper. 5-Set-up or Clean-up Assistance-helper sets up or cleans up; patient completes activity. [place] assists only prior to or following the activity. 4-Supervision or Touching Assistance-helper provides verbal cues and/or touching/steadying and/or contact guard assistance as patient completes activity. Assistance may be provided throughout the activity or intermittently. 3-Partial/Moderate Assistance-helper does LESS THAN HALF the effort. [place] lifts, holds or supports trunk or limbs, but provides less than half the effort. 2-Substantial/Maximal Assistance-helper does MORE THAN HALF the effort. [place] lifts or holds trunk or limbs and provides more than half the effort. 2-Boegkpzmn-pepgfa does ALL the effort. Patient does none of the effort to complete the activity. Or, the assistance of 2 or more helpers is required for the patient to complete the activity. If activity was not attempted, code reason: 7-Patient Refused. 9-Not Applicable-not attempted and the patient did not perform the activity before the current illness, exacerbation or injury. 10-Not Attempted due to Environmental Limitations-(lack of equipment, weather restraints, etc.). 88-Not Attempted due to Medical Conditions or Safety Concerns. Roll Left to Right (QC): 6 Sit to Lying (QC): 6 Sit to Stand (QC): 6 Chair/Dtr-yr-[place] Xfer(QC): 6 Car Transfer (QC): 6 Gait Training Does the Patient Walk?: Yes Distance: 350, 200 Walk 10 feet (QC): 6 Walk 50 ft with 2 Turns(QC): 6 Walk 150 ft (QC): 6 Walking 10ft/uneven surface-QC: 6 Gait Persons Needed: 1 Gait Assistive Device: None Wheelchair Training Does the Pt Use a Wheelchair?: No Stair Training Stair Training: Handrails/: No handrail #of Steps: 40 1 Step (curb) (QC): 6 4 Steps (QC): 6 12 Steps (QC): 6 Stairs: Pattern: Reciprocal Balance Picking up an Object (QC): 88 ADL-Treatment Eating (QC): 5 (use of universal cuff for R hand, states gets "mad" and uses L. Pt educated on stress management techniques. Pt requires s/u for cutting.) Oral Hygiene (QC): 6 (Pt completes with IND. Education of one handed technique for toothpaste management.) Bathing Location: L Arm, R Arm, L Upper Leg, R Upper Leg, L Lower Leg (i ncluding foot), R Lower Leg (including foot), Chest, Abdomen, Buttocks, Perineal Area Shower/Bathe Self (QC): 4 (Pt completes in standing with SUP. 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 Situational depression declines medication treatment Difficulty sleeping appears improved Plan: IRF protocol Cardiology consultation for risk stratification appreciated ASA High dose statin BM regimen Monitor BP DC tomorrow (1) Hemiparesis affecting dominant side as late effect of cerebrovascular accident (2) CVA (cerebral vascular accident) (3) Facial paralysis on right side Status: Acute (4) HTN (hypertension) Status: Acute (5) IDDM (insulin dependent diabetes mellitus) Status: Acute (6) Slurred speech Status: Acute (7) Status post placement of implantable loop recorder (8) Cryptogenic stroke TOYA OLGUIN DO Dec 07, 2019 12:35
--- NOTE | 2019-12-07 13:48 | Physical Therapy Daily Note ---
PT Daily Note-Current Subjective Pt agreeable to PT session. Stating he doesn't understand why they will not let him go home yet. Pain Numeric Pain Scale: 0-No Pain Appearance Pt sitting up in chair before and after session, call light, phone and bedside table within reach Mental Status Patient Orientation: Normal For Age Transfers SCALE: Activities may be completed with or without assistive devices. 4-Whsfedpbhl-nucqdxq completes the activity by him/herself with no assistance from a helper. 5-Set-up or Clean-up Assistance-helper sets up or cleans up; patient completes activity. [place] assists only prior to or following the activity. 4-Supervision or Touching Assistance-helper provides verbal cues and/or touch ing/steadying and/or contact guard assistance as patient completes activity. Assistance may be provided throughout the activity or intermittently. 3-Partial/Moderate Assistance-helper does LESS THAN HALF the effort. [place] lifts, holds or supports trunk or limbs, but provides less than half the effort. 2-Substantial/Maximal Assistance-helper does MORE THAN HALF the effort. [place] lifts or holds trunk or limbs and provides more than half the effort. 6-Hbxtjxaps-mpbhez does ALL the effort. Patient does none of the effort to complete the activity. Or, the assistance of 2 or more helpers is required for the patient to complete the activity. If activity was not attempted, code reason: 7-Patient Refused. 9-Not Applicable-not attempted and the patient did not perform the activity before the current illness, exacerbation or injury. 10-Not Attempted due to Environmental Limitations-(lack of equipment, weather restraints, etc.). 88-Not Attempted due to Medical Conditions or Safety Concerns. Sit to Stand (QC): 6 Gait Training Does the Patient Walk?: Yes Distance: 300 x2 Walk 10 feet (QC): 6 Walk 50 ft with 2 Turns(QC): 6 Walk 150 ft (QC): 6 No LOB, good pace, improving hip and knee flexion and heel strike toe off Wheelchair Training Does the Pt Use a Wheelchair?: No Exercises NuStep Minutes: 25 NuStep Workload: 4 (with R hand strap, pt able to place and adjust himself) Treatments education, safety, gait, strength, activity tolerance, functional mobility Assessment Current Status: Good Progress PT Short Term Goals Short Term Goals Time Frame: Dec 09, 2019 Roll Left & Right: 5 Sit to lyin Lying to sitting on side of be: 5 Sit to stand: 5 Chair/inp-th-jsfoc transfer: 5 Toilet transfer: 5 Car transfer: 4 Walk 10 feet: 4 Walk 50 feet with two turns: 4 Walk 150 feet: 4 Walking 10ft on uneven surface: 4 1 step (curb): 4 4 steps: 4 12 steps: 4 PT Mcc Goals Coal Deliverer Goals PT Mcc Goals Time Frame: Dec 23, 2019 Roll Left & Right (QC): 6 Sit to Lying (QC): 6 Lying-Sitting on Side/Bed(QC): 6 Sit to Stand (QC): 6 Chair/Ave-ca-Tzsoh Xfer(QC): 6 Toilet Transfer (QC): 6 Car Transfer (QC): 6 Does the Patient Walk: Yes Walk 10 feet (QC): 6 Walk 50ft with 2 Turns (QC): 6 Walk 150 ft (QC): 6 Walking 10ft on Uneven Surface: 6 1 Step (curb) (QC): 6 4 Steps (QC): 6 12 Steps (QC): 6 Picking up an Object (QC): 6 Does the Pt use WC or Scooter?: No Wheel 50 feet with 2 turns (QC: 9 Wheel 150 feet: 9 PT Plan Treatment/Plan Treatment Plan: Continue Plan of Care Treatment Plan: Bed Mobility, Education, Functional Activity Jamel, Functional Strength, Group Therapy, Gait, Safety, Therapeutic Exercise, Transfers Treatment Duration: Dec 23, 2019 Frequency: At least 5 of 7 days/Wk (IRF) Estimated Hrs Per Day: 1.5 hours per day Patient and/or Family Agrees t: Yes Safety Risks/Education Patient Education: Gait Training, Transfer Techniques, Reviewed Precautions, Correct Positioning, Disease Process, Safety Issues Teaching Recipient: Patient Teaching Methods: Discussion Response to Teaching: Verbalize Understanding Time/GCodes Time In: 1300 Time Out: 1330 Total Billed Treatment Time: 30 Total Billed Treatment 1 visit, EX x30 min SHY [employer] Dec 07, 2019 13:48
[2019-12-07] MEDS ORDERED: ASPI-983 PO (15:18)
[2019-12-07] MEDS ORDERED: ATOR80TA76 PO (15:18)
--- NOTE | 2019-12-07 15:41 | NUR ---
CM/SS DISCHARGE PLANNING Patient has communicated with various team members that he desires to return to his home with his and children. 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 All are in agreement patient is functioning at a safe level to return to his home tomorrow, December 07. DME: Patient is ambulating independently. He will need universal cuff eating utensil, this was discussed with both patient and spouse. Provided pictures to spouse via text for her information. THERAPY: Patient and spouse willing to participate in Outpatient Therapy with [facility], members of that team have assessed patient today. [place] paperwork will be completed and given to spouse tomorrow. Finalize tomorrow.
[2019-12-07 18:15] VITALS: BP 124/72
[2019-12-07] MEDS: FENOFIBRATE 134 MG (LOFIBRA) CAPSULE PO SCH (21:01)
[2019-12-08] MEDS: metFORMIN 500 MG (GLUCOPHAGE) TAB PO SCH (06:39)
[2019-12-08] MEDS: inSUlin ASPART (NovoLOG) 1 UNIT/0.01 ML (CHARGE PER UNIT) SC SCH (06:39)
[2019-12-08 06:45] VITALS: BP 122/74
--- NOTE | 2019-12-08 07:48 | Speech Therapy Progress Note ---
Therapy Progress Note Patient did not receive skilled ST on 12/07/2019 due to clinician unavailable. LILIANA IGNACIO Dec 08, 2019 07:48
--- NOTE | 2019-12-08 08:57 | Discharge Summary ---
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 Situational depression declines medication treatment Difficulty sleeping appears improved Plan: IRF protocol Cardiology consultation for risk stratification appreciated ASA High dose statin BM regimen Monitor BP DC today Discharge Summary Discharge Physical Examination Allergies: Coded Allergies: sitagliptin (Verified Allergy, Unknown, Rash, 11/30/19) Vitals & I&Os Vital Signs Date Time Temp Pulse Resp B/P (MAP) Pulse Ox O2 Delivery O2 Flow Rate FiO2 12/08/19 12:00 36.4 66 20 122/74 96 Room Air General Appearance: Alert, Oriented X3, Cooperative Respiratory: Clear to Auscultation Cardiovascular: Regular Rate Neuro: Normal Gait, Normal Speech (dramatically improved), Strength at 5/5 X4 Ext (except right arm 4/5) Hospital Course Was the Problem List Reviewed?: Yes Hospital course: patient had an uneventful hospital course for 7 days after admitted for cryptogenic CVA requiring Cardiology consultation and loop recorder placement and placement on ASA and Lipitor. DM management was uneventful and BP remained stable. Patient participated in all therapies as required. Pain was denied. Patient had such a dramatic improvement he was able to DC in improved condition and will continue his recovery at home and outpatient therapies. Labs (last 24 hrs) Laboratory Tests 12/01/19 20:37: Glucometer 305H 12/02/19 05:26: Glucometer 267H 12/02/19 05:27: White Blood Count 13.7H, Red Blood Count 4.60, Hemoglobin 14.4, Hematocrit 43, Mean Corpuscular Volume 94, Mean Corpuscular Hemoglobin 31, Mean Corpuscular Hemoglobin Concent 33, Red Cell Distribution Width 13.9, Platelet Count 216, Mean Platelet Volume 10.8H, Neutrophils (%) (Auto) 74, Lymphocytes (%) (Auto) 14, Monocytes (%) (Auto) 11, Eosinophils (%) (Auto) 1, Basophils (%) (Auto) 0, Neutrophils # (Auto) 10.1H, Lymphocytes # (Auto) 2.0, Monocytes # (Auto) 1.5H, Eosinophils # (Auto) 0.2, Basophils # (Auto) 0.0, Sodium Level 137, Potassium Level 4.2, Chloride Level 104, Carbon Dioxide Level 21, Anion Gap 12, Blood Urea Nitrogen 24H, Creatinine 1.25, Estimat Glomerular Filtration Rate > 60, BUN/Creatinine Ratio 19, Glucose Level 283H, Calcium Level 9.4, Corrected Calcium 9.1, Total Bilirubin 0.7, Aspartate Amino Transf (AST/SGOT) 16, Alanine Aminotransferase (ALT/SGPT) 24, Alkaline Phosphatase 40, Total Protein 7.4, Albumin 4.4 12/02/19 10:43: Glucometer 274H 12/02/19 15:38: Glucometer 263H 12/02/19 20:19: Glucometer 228H 12/03/19 05:25: Glucometer 208H 12/03/19 10:44: Glucometer 234H 12/03/19 15:31: Glucometer 168H 12/03/19 20:23: Glucometer 179H 12/04/19 05:08: Glucometer 255H 12/04/19 10:37: Glucometer 246H 12/04/19 15:33: Glucometer 181H 12/04/19 20:54: Glucometer 210H 12/05/19 05:12: Glucometer 239H 12/05/19 10:40: Glucometer 199H 12/05/19 15:52: Glucometer 159H 12/05/19 20:29: Glucometer 171H 12/06/19 05:07: Glucometer 188H 12/06/19 06:10: White Blood Count 7.9, Red Blood Count 4.56, Hemoglobin 14.4, Hematocrit 42, Mean Corpuscular Volume 92, Mean Corpuscular Hemoglobin 32, Mean Corpuscular Hemoglobin Concent 34, Red Cell Distribution Width 13.4, Platelet Count 205, Mean Platelet Volume 10.5H, Neutrophils (%) (Auto) 55, Lymphocytes (%) (Auto) 31, Monocytes (%) (Auto) 9, Eosinophils (%) (Auto) 5, Basophils (%) (Auto) 1, Neutrophils # (Auto) 4.3, Lymphocytes # (Auto) 2.5, Monocytes # (Auto) 0.7, Eosinophils # (Auto) 0.4H, Basophils # (Auto) 0.0, Sodium Level 138, Potassium Level 4.6, Chloride Level 106, Carbon Dioxide Level 22, Anion Gap 10, Blood Urea Nitrogen 22H, Creatinine 1.28, Estimat Glomerular Filtration Rate 60, BUN/C reatinine Ratio 17, Glucose Level 199H, Calcium Level 9.2, Corrected Calcium 9.2, Total Bilirubin 0.7, Aspartate Amino Transf (AST/SGOT) 19, Alanine Aminotransferase (ALT/SGPT) 21, Alkaline Phosphatase 38L, Total Protein 6.9, Albumin 4.0 12/06/19 11:05: Glucometer 210H 12/06/19 16:28: Glucometer 110 12/06/19 19:58: Glucometer 178H 12/07/19 05:38: Glucometer 171H 12/07/19 11:25: Glucometer 163H 12/07/19 16:38: Glucometer 158H 12/07/19 20:57: Glucometer 157H 12/08/19 06:36: Glucometer 217H Pending Labs Laboratory Tests 12/01/19 20:37: Glucometer 305 12/02/19 05:26: Glucometer 267 12/02/19 05:27: White Blood Count 13.7, Red Blood Count 4.60, Hemoglobin 14.4, Hematocrit 43, Mean Corpuscular Volume 94, Mean Corpuscular Hemoglobin 31, Mean Corpuscular Hemoglobin Concent 33, Red Cell Distribution Width 13.9, Platelet Count 216, Mean Platelet Volume 10.8, Neutrophils (%) (Auto) 74, Lymphocytes (%) (Auto) 14, Monocytes (%) (Auto) 11, Eosinophils (%) (Auto) 1, Basophils (%) (Auto) 0, Neut rophils # (Auto) 10.1, Lymphocytes # (Auto) 2.0, Monocytes # (Auto) 1.5, Eosinophils # (Auto) 0.2, Basophils # (Auto) 0.0, Sodium Level 137, Potassium Level 4.2, Chloride Level 104, Carbon Dioxide Level 21, Anion Gap 12, Blood Urea Nitrogen 24, Creatinine 1.25, Estimat Glomerular Filtration Rate > 60, BUN/Creatinine Ratio 19, Glucose Level 283, Calcium Level 9.4, Corrected Calcium 9.1, Total Bilirubin 0.7, Aspartate Amino Transf (AST/SGOT) 16, Alanine Aminotransferase (ALT/SGPT) 24, Alkaline Phosphatase 40, Total Protein 7.4, Albumin 4.4 12/02/19 10:43: Glucometer 274 12/02/19 15:38: Glucometer 263 12/02/19 20:19: Glucometer 228 12/03/19 05:25: Glucometer 208 12/03/19 10:44: Glucometer 234 12/03/19 15:31: Glucometer 168 12/03/19 20:23: Glucometer 179 12/04/19 05:08: Glucometer 255 12/04/19 10:37: Glucometer 246 12/04/19 15:33: Glucometer 181 12/04/19 20:54: Glucometer 210 12/05/19 05:12: Glucometer 239 12/05/19 10:40: Glucometer 199 12/05/19 15:52: Glucometer 159 12/05/19 20:29: Glucometer 171 12/06/19 05:07: Glucometer 188 12/06/19 06:10: White Blood Count 7.9, Red Blood Count 4.56, Hemoglobin 14.4, Hematocrit 42, Mean Corpuscular Volume 92, Mean Corpuscular Hemoglobin 32, Mean Corpuscular Hemoglobin Concent 34, Red Cell Distribution Width 13.4, Platelet Count 205, Mean Platelet Volume 10.5, Neutrophils (%) (Auto) 55, Lymphocytes (%) (Auto) 31, Monocytes (%) (Auto) 9, Eosinophils (%) (Auto) 5, Basophils (%) (Auto) 1, Neutrophils # (Auto) 4.3, Lymphocytes # (Auto) 2.5, Monocytes # (Auto) 0.7, Eosinophils # (Auto) 0.4, Basophils # (Auto) 0.0, Sodium Level 138, Potassium Level 4.6, Chloride Level 106, Carbon Dioxide Level 22, Anion Gap 10, Blood Urea Nitrogen 22, Creatinine 1.28, Estimat Glomerular Filtration Rate 60, BUN/Creatinine Ratio 17, Glucose Level 199, Calcium Level 9.2, Corrected Calcium 9.2, Total Bilirubin 0.7, Aspartate Amino Transf (AST/SGOT) 19, Alanine Aminotransferase (ALT/SGPT) 21, Alkaline Phosphatase 38, Total Protein 6.9, Albumin 4.0 12/06/19 11:05: Glucometer 210 12/06/19 16:28: Glucometer 110 3/23/20 19:58: Glucometer 178 12/07/19 05:38: Glucometer 171 12/07/19 11:25: Glucometer 163 12/07/19 16:38: Glucometer 158 12/07/19 20:57: Glucometer 157 12/08/19 06:36: Glucometer 217 Discharge Home Medications: Active Scripts Active Aspirin EC (Aspirin) 81 Mg Tablet.dr 81 Mg PO DAILY Atorvastatin Calcium 80 Mg Tablet 80 Mg PO HS Reported Ibuprofen 200 Mg Tablet 1,200 Mg PO Q12H PRN TAKES 6(200MG) TABS PRN Novolog (Insulin Aspart) 100 Unit/1 Ml Susp 30 Units SQ 1200,1700 WITH MEALS 30 UNITS WITH LUNCH AND DINNER Levemir (Insulin Determir) 1,000 Units/10 Ml Soln 60 Units SQ BID Lisinopril 40 Mg Tablet 40 Mg PO DAILY Fenofibrate 160 Mg Tablet 160 Mg PO DAILY Metformin HCl ER (Metformin HCl) 750 Mg Tab.er.24h 1,500 Mg PO DAILY Amlodipine Besylate 5 Mg Tablet 5 Mg PO DAILY Instructions to patient/family Please see electronic discharge instructions given to patient. Diagnosis/Problems Diagnosis/Problems (1) Hemiparesis affecting dominant side as late effect of cerebrovascular accide nt (2) CVA (cerebral vascular accident) (3) Facial paralysis on right side Status: Acute (4) HTN (hypertension) Status: Acute (5) IDDM (insulin dependent diabetes mellitus) Status: Acute (6) Slurred speech Status: Acute (7) Status post placement of implantable loop recorder (8) Cryptogenic stroke Clinical Quality Measures DVT/VTE Risk/Contraindication: Risk Factor Score Per Nursin RFS Level Per Nursing on Admit: 4+=Very High TOYA OLGUIN DO Dec 08, 2019 08:57
[2019-12-08] MEDS ORDERED: ENOXAPARIN 40 MG/0.4 ML (LOVENOX) SYR SC SCH (09:00)
[2019-12-08] MEDS: amLODIPine 5 MG (NORVASC) TAB PO SCH (09:17)
[2019-12-08] MEDS: ASPIRIN E.C. 81 MG (ECOTRIN) TAB PO SCH (09:20)
[2019-12-08] MEDS: lisINopril 40 MG (PRINIVIL) TABLET PO SCH (09:20)
[2019-12-08] MEDS: DOCUSATE SODIUM 100 MG (COLACE) CAP PO SCH (09:21)
[2019-12-08] MEDS: polyethylene glycoL POWDER 17 GM (MIRALAX) PACK PO SCH (09:21)
[2019-12-08] MEDS: SENNA W/DOCUSATE (SENOKOT S) TABLET PO SCH (09:22)
--- NOTE | 2019-12-08 09:22 | Therapy Team Discharge Summary ---
Therapy Discharge Summary Discharge Recommendations Date of Discharge Physical Therapy Patient came to rehab following a CVA. Upon evaluation patient performed bed mobility and supine <-> sit with SBA, sit <-> stand CGA, transfers CGA, car transfer CGA, ambulated 150' with min assist (including 50' with at least 2 turns of 90 degrees and 10' over an uneven surface), and went up and down 4 steps using 2 handrails with min assist. Patient has been performing bed mobility and transfer training, balance and endurance training, functional strengthening, stair training, gait training, and education. Patient has made good progress and has met all of his senior living goals. Now, patient performs bed mobility and transfers with independence, car transfer with independence, ambulates 350' without an assistive device with independence (including 50' with at least 2 turns of 90 degrees and 10' over an uneven surface), and can go up and down 40 steps using no handrails with independence. Patient is discharging from this facility today and will be discharged from PT at this time. Occupational Therapy Decreased UE Strength, Impaired Coordination, Impaired I ADL's, Impaired Self- Care Skills, Restricted Funct UE ROM PT Dispatcher Ship Pilot Goals Dispatcher Ship Pilot Goals PT Dispatcher Ship Pilot Goals Time Frame: Dec 23, 2019 Roll Left to Right (QC): 6 Sit to Lying (QC): 6 Lying-Sitting on Side/Bed(QC): 6 Sit to Stand (QC): 6 Chair/Yav-nf-Jtegr Xfer(QC): 6 Car Transfer (QC): 6 Does the Patient Walk: Yes Walk 10 feet (QC): 6 Walk 10ft-Uneven Surface(QC): 6 Walk 50ft with 2 Turns (QC): 6 Walk 150 ft (QC): 6 Does the Pt use WC or Scooter?: No Wheel 50 feet with 2 turns (QC: 9 1 Step (curb) (QC): 6 4 Steps (QC): 6 12 Steps (QC): 6 Picking up an Object (QC): 6 OT Dispatcher Ship Pilot Goals Skilled Nursing Goals Time Frame: Dec 17, 2019 Eating (QC): 6 Oral Hygiene (QC): 6 (met) Shower/Bathe Self (QC): 6 (met) Upper Body Dressing (QC): 6 (met) Lower Body Dressing (QC): 6 (met) On/Off Footwear (QC): 6 (met) Toileting Hygiene (QC): 6 (met) Toilet/Commode Transfer (QC): 6 Additional Goals: 1-Demonstrate ADL Tasks, 2-Verbalize Understanding, 3- ImproveStrength/Jamel 1=Demonstrate adherence to instructed precautions during ADL tasks. 2=Patient will verbalize/demonstrate understanding of assistive devices/modifications for ADL. 3=Patient will improve strength/tolerance for activity to enable patient to perform ADL's. Speech Dispatcher Ship Pilot Goals Skilled Nursing Goals Patient will improve cognitive and speech production to prior level at 90% or greater. FAREED SALAZAR PT Dec 08, 2019 09:22
--- NOTE | 2019-12-08 09:53 | Therapy Team Discharge Summary ---
Therapy Discharge Summary Discharge Recommendations Date of Discharge Therapy D/C Recommendations: Home w/ Family Support, Occupational Therapy Outpatient Occupational Therapy Pt admitted to ARU on 12/01/2019 with dx of CVA with right side weakness. At prior level, pt was independent with all ADLs and functional mobility without AD/AE, he was driving, and working. At admission, pt required set up assist with feeding and oral hygiene, CGA during shower, Min A upper/lower body dressing, max A footwear, and CGA toileting/toilet hygiene. OT txs with focus on neuromuscular re-education in order to increase independence with ADLs and functional activities. At discharge, pt required set up assist with feeding (s/u for cutting), independent with oral hygiene, supervision with shower (based on pt's balance and activity level/ safety awareness, pt could complete this with IND at home), and independent with upper/lower body dressing, footwear, and toileting/toilet transfers. Pt made good progress towards goals, meeting all except feeding and showering goal. Pt discharging from facility today, thus discharging from OT at this time, with recommendations of outpatient OT to continue to increase functional use of RUE. Decreased UE Strength, Impaired Coordination, Impaired I ADL's, Impaired Self- Care Skills, Restricted Funct UE ROM PT Puff Iron Operator Goals Puff Iron Operator Goals PT Half-Way Goals Time Frame: Dec 23, 2019 Roll Left to Right (QC): 6 Sit to Lying (QC): 6 Lying-Sitting on Side/Bed(QC): 6 Sit to Stand (QC): 6 Chair/Iom-um-Dsapl Xfer(QC): 6 Car Transfer (QC): 6 Does the Patient Walk: Yes Walk 10 feet (QC): 6 Walk 10ft-Uneven Surface(QC): 6 Walk 50ft with 2 Turns (QC): 6 Walk 150 ft (QC): 6 Does the Pt use WC or Scooter?: No Wheel 50 feet with 2 turns (QC: 9 1 Step (curb) (QC): 6 4 Steps (QC): 6 12 Steps (QC): 6 Picking up an Object (QC): 6 OT Half-Way Goals Puff Iron Operator Goals Time Frame: Dec 17, 2019 Eating (QC): 6 (not met, set up) Oral Hygiene (QC): 6 (met) Shower/Bathe Self (QC): 6 (not met, supervision) Upper Body Dressing (QC): 6 (met) Lower Body Dressing (QC): 6 (met) On/Off Footwear (QC): 6 (met) Toileting Hygiene (QC): 6 (met) Toilet/Commode Transfer (QC): 6 (met) Additional Goals: 1-Demonstrate ADL Tasks, 2-Verbalize Understanding, 3- ImproveStrength/Jamel 1=Demonstrate adherence to instructed precautions during ADL tasks. 2=Patient will verbalize/demonstrate understanding of assistive devices/modifications for ADL. 3=Patient will improve strength/tolerance for activity to enable patient to perform ADL's. Speech Puff Iron Operator Goals Puff Iron Operator Goals Patient will improve cognitive and speech production to prior level at 90% or greater. MIGNON SANDERSON OT Dec 08, 2019 09:53
--- NOTE | 2019-12-08 11:09 | Speech Therapy Daily Note ---
Speech Daily Progress Note Subjective Date Seen by Provider: Dec 08, 2019 Time Seen by Provider: 00:15 Patient is anxious to return home today. Objective Patient completed a series of q/a related to his return home at 90% with minimal cues. Assessment Assessment Current Status: Good Progress Treatment Plan Discontinue ST, Goals Met Speech Short Term Goals Short Term Goals Short Term Goals 1) Patient will complete memory tasks related to his daily needs with 90% or greater. 2) Patient will complete safety awareness tasks related to his daily needs with 90% or greater. 3) Patient will complete problem solving tasks related to his daily needs with 90% or greater. 4) Patient will complete oral motor exercises with 90% or greater. Speech Granulator Operator Goals Fpc Goals Patient will improve cognitive and speech production to prior level at 90% or greater. Speech-Plan Patient/Family Goals Patient/Family Goals: Patient is returnig to his home where he lives with his . Treatment Plan Speech Therapy Treatment Plan: Discontinue ST, Goals Met Treatment Duration: Dec 02, 2019 Frequency: Modified Program (IRF) Estimated Hrs Per Day: .5 hour per day Rehab Potential: Good Barriers to Learning: Patient has some mild residual post CVA affects Pt/Family Agrees to Plan: Yes Safety Risks/Education Teaching Recipient: Patient Teaching Methods: Demonstration, Discussion Response to Teaching: Verbalize Understanding, Return Demonstration Education Topics Provided: Continued safety and cognitive tasks upon his return home. Time Speech Therapy Time In: 10:30 Speech Therapy Time Out: 10:45 Total Billed Time: 15 Billed Treatment Time 1, SLTS No QUALITY CODES: EXPRESSION OF IDEAS/WANTS: 4 UNDERSTANDING VERBAL CONTENT: 4 BRIEF INTERVIEW MENTAL STATUS: YES REPETITION OF 3 WORDS: 3 TEMPORAL ORIENTATION: YEAR: CORRECT, MONTH: CORRECT, DAY: CORRECT RECALL SOCK: YES WITH CUE, COLOR: YES WITH CUE, BED: YES MEMORY/RECALL ABILITY: SEASON, THAT HE'S IN THE HOSPITAL, LOCATION OF HIS ROOM LILIANA IGNACIO Dec 08, 2019 11:09
--- NOTE | 2019-12-08 11:33 | Therapy Team Discharge Summary ---
Therapy Discharge Summary Discharge Recommendations Date of Discharge Therapy D/C Recommendations: Home w/ Family Support, Occupational Therapy Outpatient Occupational Therapy Decreased UE Strength, Impaired Coordination, Impaired I ADL's, Impaired Self- Care Skills, Restricted Funct UE ROM Speech-Language Pathology Patient admitted to the ARU s/p CVA. Patient has been seen by ST for dysphagia and cognitive functional levels. Patient has made good progress with all goals. Patient's will continue skilled ST in the home. Patient is discharging to his home today. PT Senior Care Goals Account Executive Metalworking Goals PT Senior Care Goals Time Frame: Dec 23, 2019 Roll Left to Right (QC): 6 Sit to Lying (QC): 6 Lying-Sitting on Side/Bed(QC): 6 Sit to Stand (QC): 6 Chair/Tun-cr-Yxokq Xfer(QC): 6 Car Transfer (QC): 6 Does the Patient Walk: Yes Walk 10 feet (QC): 6 Walk 10ft-Uneven Surface(QC): 6 Walk 50ft with 2 Turns (QC): 6 Walk 150 ft (QC): 6 Does the Pt use WC or Scooter?: No Wheel 50 feet with 2 turns (QC: 9 1 Step (curb) (QC): 6 4 Steps (QC): 6 12 Steps (QC): 6 Picking up an Object (QC): 6 OT Account Executive Metalworking Goals Senior Care Goals Time Frame: Dec 17, 2019 Eating (QC): 6 (not met, set up) Oral Hygiene (QC): 6 (met) Shower/Bathe Self (QC): 6 (not met, supervision) Upper Body Dressing (QC): 6 (met) Lower Body Dressing (QC): 6 (met) On/Off Footwear (QC): 6 (met) Toileting Hygiene (QC): 6 (met) Toilet/Commode Transfer (QC): 6 (met) Additional Goals: 1-Demonstrate ADL Tasks, 2-Verbalize Understanding, 3- ImproveStrength/Jamel 1=Demonstrate adherence to instructed precautions during ADL tasks. 2=Patient will verbalize/demonstrate understanding of assistive devices/ modifications for ADL. 3=Patient will improve strength/tolerance for activity to enable patient to perform ADL's. Speech Account Executive Metalworking Goals Senior Care Goals Patient will improve cognitive and speech production to prior level at 90% or greater. LILIANA IGNACIO Dec 08, 2019 11:33
[2019-12-08 12:00] VITALS: BP 122/74
--- NOTE | 2019-12-08 12:12 | NUR ---
CM/SS DISCHARGE Patient discharge finalized, he is returning home today via spouse transport. Process completed under protocols regarding current no visitor policy due to Covid19. THERAPY: Patient scheduled for outpatient therapy with [facility]. First appointment December 09, 2:45 p.m. Dean Of [employer] included on discharge instructions, updated patient and spouse verbally. They will direct all other appointments, twice weekly, directly with outpatient team. Completed [place] paperwork and mailed as a courtesy to patient/spouse. Original to [facility], copy to patient. [facility] is currently on a [id number] status, unable to reach [facility] staff or access fax numbers. As previously noted, patient is ambulatory without assistive devices. They will order hand aids or adaptive utensils independently for home use. Information and pictures were provided for reference. Patient has been dressed and packed since early a.m. Returning home appears a vital part in his overall forward progress. Unit RN updated of all arrangements.
== END 2019-12-08 12:12 | disposition home or self-care (01) | DRG 57 ==
PROVIDERS: ADMIT Internal Medicine; ATTEND Internal Medicine
DX: I69.351 Hemiplegia and hemiparesis following cerebral infarction affecting right dominant side (principal); I69.392 Facial weakness following cerebral infarction; I69.328 Other speech and language deficits following cerebral infarction; E11.21 Type 2 diabetes mellitus with diabetic nephropathy; I10 Essential (primary) hypertension; E11.22 Type 2 diabetes mellitus with diabetic chronic kidney disease; N18.9 Chronic kidney disease, unspecified; Z68.41 Body mass index [BMI] 40.0-44.9, adult; E66.9 Obesity, unspecified; F41.9 Anxiety disorder, unspecified; E78.1 Pure hyperglyceridemia; F32.9 Major depressive disorder, single episode, unspecified; Z79.4 Long term (current) use of insulin; Z90.49 Acquired absence of other specified parts of digestive tract; I48.0 Paroxysmal atrial fibrillation
CPT/HCPCS: 36415; 80053; 82962; 85025; 92960; 93306; 94664

== ENCOUNTER 2020-02-23 14:33 | Outpatient (RCR) | payer BC ==
[~2020-02-23 14:33] MED LIST changes: +ASPI-983 PO; +ATOR80TA76 PO
== END 2020-02-23 15:10 | disposition home or self-care (01) ==
PROVIDERS: ATTEND Family Medicine
DX: I69.992 Facial weakness following unspecified cerebrovascular disease (principal); I10 Essential (primary) hypertension; E11.9 Type 2 diabetes mellitus without complications; I63.9 Cerebral infarction, unspecified

== ENCOUNTER 2020-11-20 05:43 | Outpatient (RCR) | payer BC ==
[~2020-11-20] VITALS: Ht 188 cm; Wt 140.6 kg
[~2020-11-20 05:43] MED LIST changes: +AMLO-250 PO; -AMLO5TAB9 PO; +ASPI-1238 PO; -ASPI-983 PO; -LISI40TA PO; +LISI40TA9 PO
== END 2020-11-21 15:26 | disposition home or self-care (01) ==
LOC: PREOP 05:43
PROVIDERS: ATTEND Surgery
DX: Z01.818 Encounter for other preprocedural examination (principal)

== ENCOUNTER 2020-11-27 10:13 | Day surgery (SDC) | payer BC ==
[~2020-11-27] VITALS: Ht 188 cm; Wt 140.6 kg
[~2020-11-27 10:13] MED LIST changes: +LACTATED RINGERS 1,000 ML IV STA
[2020-11-27] MEDS ORDERED: LACTATED RINGERS 1,000 ML IV ONE (10:14)
[2020-11-27 10:35] VITALS: BP 151/90
--- NOTE | 2020-11-27 10:42 | Progress Note-Pre Operative ---
Pre-Operative Progress Note H&P Reviewed The H&P was reviewed, patient examined and no changes noted. Time Seen by Provider: 10:41 Date H&P Reviewed: Nov 27, 2020 Time H&P Reviewed: 10:41 Pre-Operative Diagnosis: Rectal pain KATELYNN GRADY DO Nov 27, 2020 10:42
[2020-11-27] MEDS ORDERED: PROPOFOL INJECTION 50 ML IV ONE (10:52)
[2020-11-27] MEDS ORDERED: MIDAZOLAM 2 MG/2 ML (VERSED) VIAL ONE (10:53)
[2020-11-27] MEDS ORDERED: proPOfol 200 MG/20 ML (DIPRIVAN) VIAL IV ONE (11:27)
[2020-11-27 11:50] VITALS: BP_SYST 100; BP_SYST 122; BP_DIAS 52; BP_DIAS 65
--- NOTE | 2020-11-27 12:00 | Progress Note-Post Operative ---
Post-Operative Progess Note Surgeon (s)/Quality Assurance Lab Technician (s) Surgeon KATELYNN GRADY DO Quality Assurance Lab Technician: EMERSON Vaughn Pre-Operative Diagnosis Rectal pain Post-Operative Diagnosis Colon polyp diverticula int hemorrhoids poor prep Procedure & Operative Findings Date of Procedure 11/27/20 Procedure Performed/Findings Colon with hot bx Anesthesia Type IV sedation by METAL BOX MAKER Estimated Blood Loss Estimated blood loss (mL): scant Specimens/Packing Specimens Removed tranverse colon polyp KATELYNN GRADY DO Nov 27, 2020 12:00
--- NOTE | 2020-11-27 12:01 | Endoscopy Discharge Instruct ---
Endo Procedure/Findings Findings 1.: Polyp 2.: Diverticulosis 3.: Internal Hemorrhoids 4.: Other Findings (poor prep) Discharge Instructions - Activity: You might feel a little sleepy until tomorrow. This is due to the medicine you received to relax you. Until tomorrow, you should: NOT drive a car, operate machinery or power tools. NOT drink any alcoholic beverages. NOT make any important decisions or sign importortant papers. Do not return to work until tomorrow, unless otherwise instructed. Resume previous activities tomorrow. Diet: Start by taking liquids. If you tolerate liquids, advance to solid food. 1.: Colonoscopy in 2 years Notify Physician - If you experience excessive bleeding, unusual abdominal pain, fever, or chest pain, contact your doctor immediately. KATELYNN GRADY DO Nov 27, 2020 12:01
[2020-11-27 12:20] VITALS: BP 132/73
--- NOTE | 2020-11-27 12:27 | Anesthesia-General Post-Op ---
MAC Patient Condition Mental Status/LOC: Same as Preop Cardiovascular: Satisfactory Nausea/Vomiting: Absent Respiratory: Satisfactory Pain: Controlled Complications: Absent Post Op Complications Complications None Follow Up Care/Instructions Patient Instructions None needed. Anesthesiology Discharge Order Discharge Order Patient is doing well, no complaints, stable vital signs, no apparent adverse anesthesia problems. No complications reported per nursing. CELINE GRIDER CRNA Nov 27, 2020 12:27
--- NOTE | 2020-11-27 21:46 | OPERATIVE REPORT ---
DATE OF SERVICE: PREOPERATIVE DIAGNOSIS: Rectal pain. POSTOPERATIVE DIAGNOSES: Rectal pain, colon polyps, diverticula, internal hemorrhoids and poor prep. PROCEDURE: Colonoscopy with hot biopsy. SURGEON: Adal Agrawal DO TRAINING AND DEVELOPMENT DIRECTOR: Larry Leary MS3. ANESTHESIA: IV sedation by the PORTRAIT ARTIST. SPECIMEN: Hot biopsy of the descending colon polyp. BLOOD LOSS: Scant. FLUIDS: Per anesthesia. POSTOPERATIVE CONDITION: Stable. INDICATION FOR PROCEDURE: The patient is a 50-year-old male who has been having some rectal pain felt like there is something bulging up or a mass in the rectal area and needed a workup. FINDINGS: The patient had a polyp in the descending colon, some diverticula, small internal hemorrhoids and then a poor prep. PROCEDURE NOTE: After informed consent was obtained, the patient was brought to the endoscopy suite, placed in bed in left lateral decubitus position. He was administered IV sedation by the PORTRAIT ARTIST who then monitored his vitals the entire time, heart rate, blood pressure and pulse ox. Digital rectal exam was performed. The patient had a slightly enlarged prostate, firm, but did not feel any masses, the scope was then inserted. Unfortunately, he had a poor prep, all the woods were covered, able to get some of this off with fluid, but not all of it. Pushed in, on the way in, noted some diverticula, able to get all the way to cecum, took a picture of appendiceal orifice, noted the ileocecal valve, then slowly withdrew the scope insufflating to look circumferentially at the woods looking the cecum, up the ascending colon to the hepatic flexure, then down the transverse colon to splenic flexure, into the descending colon and in the descending colon, saw a small polyp, I elected to remove this with a hot biopsy, able to get this completely, sent to pathology. Continued down into the sigmoid and finally into the rectum, retroflexed in rectal vault, saw some internal hemorrhoids, probably grade II, but did not see any large masses or any reasons, he was having rectal pain. Because of the poor prep, I would recommend the patient was brought to get a repeat colonoscopy in 2 years when he turns 52. Scope was removed. The patient tolerated the procedure, recovered in endoscopy suite. Job ID: [id number] DocumentID: [id number] Dictated Date: 11/27/2020 15:58:02 Gear Hobber Date: 11/27/2020 21:45:23 Dictated By: ADAL AGRAWAL DO
== END 2020-11-27 12:25 | disposition home or self-care (01) ==
LOC: ENDO 10:13
PROVIDERS: ATTEND Surgery
DX: D12.4 Benign neoplasm of descending colon (principal); K57.30 Diverticulosis of large intestine without perforation or abscess without bleeding; K64.8 Other hemorrhoids; I10 Essential (primary) hypertension; E11.9 Type 2 diabetes mellitus without complications; E78.2 Mixed hyperlipidemia; E66.9 Obesity, unspecified; Z68.39 Body mass index [BMI] 39.0-39.9, adult; Z79.84 Long term (current) use of oral hypoglycemic drugs; Z79.899 Other long term (current) drug therapy; Z79.82 Long term (current) use of aspirin; Z79.02 Long term (current) use of antithrombotics/antiplatelets; Z88.8 Allergy status to other drugs, medicaments and biological substances; Z86.73 Personal history of transient ischemic attack (TIA), and cerebral infarction without residual deficits
CPT/HCPCS: 45384; 82962; 88305; G0103; 36415; 84153

== ENCOUNTER → 2022-04-18 | Outpatient (CLI) | payer BC ==
[~2022-04-18] MED LIST changes: -LACTATED RINGERS 1,000 ML IV STA
--- NOTE | 2022-04-18 15:12 | Diagnostic Imaging Report ---
INDICATIon: Discomfort in the chest. Stroke 3 years ago. EXAMINATION: 3 view chest 04/18/2022 COMPARISON: 11/30/2019 FINDINGS: The cardiomediastinal silhouette is unremarkable. The pulmonary vasculature is within normal limits. The lungs and pleural spaces are clear. IMPRESSION: No evidence of an acute cardiopulmonary process. Dictated by: Dictated on workstation # [id number]
== END ==
LOC: RAD 13:28
PROVIDERS: ATTEND Family Medicine
DX: R07.89 Other chest pain (principal)
CPT/HCPCS: 71046